=== PATIENT | male | born 1945 | race Caucasian/White ===

== ENCOUNTER 2017-01-16 17:08 | Inpatient (IN) | payer OTHER, MEDICARE ==
[~2017-01-16] VITALS: Ht 182.9 cm; Wt 78.3 kg
[2017-01-16] MEDS ORDERED: SODIUM CHLORIDE 0.9% 1000ML 2,000 ML IV STA (17:30)
[2017-01-16 17:39] LABS: BASO % 0.1 %; BASO ABS # 0.01 K/uL (0-0.2); COMPLETE YES; HEMATOCRIT 29.9 % (42-52); IG% 1.5 %; LYMPH % 4.3 %; LYMPH ABS # 0.58 K/uL (1.2-3.4); MEAN CELL VOLUME 81.5 fL (80-100); MEAN CORPUSCULAR HEMOGLOBIN 27.5 pg (25-34); MEAN CORPUSCULAR HGB CONC 33.8 g/dl (32-36); MEAN PLATELET VOLUME 8.8 fL (7.4-10.4); MONO % 5.4 %; NEUT % 88.7 %; PLATELET COUNT 453 K/uL (130-400); RED BLOOD COUNT 3.67 M/uL (4.7-6.1); WHITE BLOOD COUNT 13.49 K/uL (4.8-10.8)
[2017-01-16] MEDS ORDERED: LEVAQUIN 750MG / 150ML D5W IV STA (17:45)
[2017-01-16] MEDS ORDERED: PIPERACILLIN/TAZOBACTAM 4.5 GM/100ML D5W IV STA (17:45)
[2017-01-16] MEDS ORDERED: ACETAMINOPHEN 500 MG TAB PO STA (17:45)
[2017-01-16 17:52] LABS: PROTHROMBIN TIME (PATIENT) 66.2 SECONDS (9.0-12.0)
[2017-01-16 17:57] LABS: INR 5.8 (0.9-1.1)
[2017-01-16 17:59] LABS: ALT/SGPT 19 U/L (12-78); AST/SGOT 15 U/L (15-37); BLOOD UREA NITROGEN 19 mg/dl (7-18); BUN/CREATININE RATIO 14.3 (10-20); CARBON DIOXIDE 27 mmol/L (21-32); CHLORIDE 96 mmol/L (98-107); CREATININE 1.33 mg/dl (0.60-1.40); GLUCOSE 210 mg/dl (70-99); MAGNESIUM 1.8 mg/dl (1.8-2.4); POTASSIUM 3.8 mmol/L (3.5-5.1); SODIUM 132 mmol/L (136-145)
[2017-01-16 18:02] LABS: ALKALINE PHOSPHATASE 90 U/L (45-117)
--- NOTE | 2017-01-16 19:08 | DIAGNOSTIC IMAGING REPORT ---
SINGLE VIEW CHEST CLINICAL HISTORY: Fever. FINDINGS: An AP, portable, upright chest radiograph is obtained. No prior studies are available for comparison at the time of dictation. The examination is degraded by portable technique and apical lordotic positioning. The heart is enlarged and there is atherosclerotic calcification of the thoracic aorta. There is pulmonary vascular congestion. Airspace opacities are suggested at both lung bases. No large pleural effusion or pneumothorax is seen. The skeletal structures are osteopenic. The bony thorax is grossly intact. IMPRESSION: 1. Cardiomegaly with mild pulmonary vascular congestion. 2. Patchy airspace opacities are present at both lung bases. Correlate clinically for evidence of an infectious/inflammatory pneumonitis. Radiographic follow-up to resolution is recommended. Electronically signed by: Conor Cannon M.D. 01/16/2017 7:07 PM Dictated Date/Time: 01/16/2017 7:06 PM
--- NOTE | 2017-01-16 19:33 | DIAGNOSTIC IMAGING REPORT ---
LEFT SHOULDER 3 VIEWS CLINICAL HISTORY: Left shoulder pain. FINDINGS: 3 views of the left shoulder are obtained. No prior studies are available for comparison at the time of dictation. The skeletal structures are osteopenic. No fracture or dislocation is seen. Productive degenerative change is noted at the acromioclavicular joint. Arthritic change is also seen in the greater tuberosity of the humeral head. The overlying soft tissues are within normal limits. The imaged left lung parenchyma appears clear. There is atherosclerotic calcification of the thoracic aorta. IMPRESSION: Osteopenia and arthritic change as above. No left shoulder fracture or dislocation is identified. Electronically signed by: Conor Cannon M.D. 01/16/2017 7:32 PM Dictated Date/Time: 01/16/2017 7:31 PM
[2017-01-16] MEDS ORDERED: FERR325T5 PO (20:17)
[2017-01-16] MEDS ORDERED: OMEG10007 PO (20:17)
[2017-01-16] MEDS ORDERED: PRED20TA PO (20:21)
[2017-01-16] MEDS ORDERED: WARF2TAB PO (20:21)
[2017-01-16] MEDS ORDERED: GLIP10TA9 PO (20:21)
[2017-01-16] MEDS ORDERED: PANT40TA PO (20:21)
[2017-01-16] MEDS ORDERED: LIRA18IN SC (20:21)
[2017-01-16] MEDS ORDERED: AMIO200T4 PO (20:21)
[2017-01-16] MEDS ORDERED: FENO1TAB24 PO (20:21)
[2017-01-16] MEDS ORDERED: INSDGI SC (20:21)
[2017-01-16] MEDS ORDERED: CHOL1000 PO (20:22)
[2017-01-16] MEDS ORDERED: LISI-729 PO (20:22)
--- NOTE | 2017-01-16 20:43 | DIAGNOSTIC IMAGING REPORT ---
CT SCAN OF THE BRAIN WITHOUT IV CONTRAST CLINICAL HISTORY: Headache and dizziness. COMPARISON STUDY: No priors. TECHNIQUE: Unenhanced axial CT scan of the brain is performed from the vertex to the skull base. CT DOSE: 537.48 mGy.cm FINDINGS: Brain parenchyma: There are age-related involutional changes noting mild subcortical and periventricular microangiopathic change. There is no hemorrhage, mass effect, or evidence of acute territorial ischemia by CT criteria. Puga-white matter is preserved. No extra-axial fluid collection is seen. Ventricles, sulci, cisterns: Prominent secondary to involutional change. Intracranial vasculature: There is atherosclerotic calcification of the cavernous carotid and vertebral arteries. Calvarium: Unremarkable. Sinuses and mastoids: There is a large air-fluid level in the right maxillary antrum. Mucosal thickening is seen within the right frontal sinus and the right ethmoid sinuses. Trace mucosal thickening is seen in the sphenoid sinuses. There are small mastoid effusions. Orbits: The bony orbits are grossly intact. IMPRESSION: 1. There is no hemorrhage, mass effect, or evidence of acute territorial ischemia by CT criteria. 2. Right-sided paranasal sinus disease as above. Correlate clinically for evidence of acute sinusitis. Electronically signed by: Conor Cannon M.D. 01/16/2017 8:42 PM Dictated Date/Time: 01/16/2017 8:40 PM
[2017-01-16 20:54] LABS: ARTERIAL BLD GAS O2 SATURATION 95.4 % (90-95); ARTERIAL BLOOD GAS BASE EXCESS 0.4 mEq/L (-9-1.8); ARTERIAL BLOOD GAS HCO3 24 mmol/L (19-24); ARTERIAL BLOOD GAS PO2 81 mm/Hg (80-95); ARTERIAL BLOOD GAS pH 7.47 (7.35-7.45)
[2017-01-16 20:55] LABS: ALLEN TEST POS (POS); O2 ADMINISTRATION 3L O2
[2017-01-16 20:56] LABS: THYROID STIMULATING HORMONE 2.44 uIu/ml (0.300-4.500)
[2017-01-16] MEDS ORDERED: PHYTONADIONE 5 MG TAB PO STA ×2 (21:13→21:26)
[2017-01-16] MEDS ORDERED: POTASSIUM CHLORIDE 20 MEQ TABCR PO STA (21:20)
[2017-01-16] MEDS ORDERED: INSULIN GLARGINE SOLOSTAR 100 UNITS/ML 3 ML PEN SC ONE (21:32)
[2017-01-16] MEDS ORDERED: LEVALBUTEROL/IPRATROPIUM NEB INH STA (21:32)
[2017-01-16] MEDS ORDERED: INSULIN ASPART 100 UNITS/ML 3 ML PEN SC ONE (21:32)
[2017-01-16] MEDS ORDERED: LEVALBUTEROL/IPRATROPIUM NEB INH PRN (21:45)
[2017-01-16] MEDS ORDERED: GLUCOSE 40% GEL 15 GM TUBE PO PRN (21:45)
[2017-01-16] MEDS ORDERED: NITROGLYCERIN 0.4 MG SL PER TAB CHARGE SL PRN (21:45)
[2017-01-16] MEDS ORDERED: DEXTROSE 50% 50 ML SYR IV PRN (21:45)
[2017-01-16] MEDS ORDERED: GLUCOSE 10 TABS/TUBE PO PRN (21:45)
[2017-01-16] MEDS ORDERED: GLUCAGON FOR INJ 1 MG VIAL SQ PRN (21:45)
[2017-01-16 21:47] VITALS: BP 110/69; PULSE 90; TEMP 36.7; BMI 23.0
[2017-01-16] MEDS ORDERED: MAGNESIUM SULFATE 1GM / D5W 1 GM in PREMIXED IN D5W 100 ML IV ONE (22:00)
[2017-01-16] MEDS: LEVALBUTEROL 1.25MG/0.5ML NEB INH SCH (22:00)
[2017-01-16] MEDS ORDERED: FUROSEMIDE INJ 20 MG in SYRINGE 0 ML IV ONE (22:00)
[2017-01-16] MEDS ORDERED: DOXYCYCLINE IV 100 MG in DEXTROSE 5% 100ML 100 ML IV ONE (22:00)
[2017-01-16] MEDS ORDERED: FUROSEMIDE INJ 40 MG in SYRINGE 0 ML IV ONE (22:00)
[2017-01-16 22:55] LABS: URINE APPEARANCE CLEAR (CLEAR); URINE BILIRUBIN NEG (NEG); URINE COLOR YELLOW; URINE EPITHELIAL CELL AUTO 20-30 /lpf (0-5); URINE NITRITE NEG (NEG); URINE PH 5.5 (4.5-7.5); URINE SPECIFIC GRAVITY 1.025 (1.000-1.030); UROBILINOGEN NEG (NEG); ZZURINE CULT IF INDIC CATH YES
[2017-01-16 22:57] LABS: MANUAL MICROSCOPIC REQUIRED? NO; REVIEW REQ? YES
--- NOTE | 2017-01-16 23:10 | EMERGENCY ROOM VISIT NOTE ---
History Report prepared by Jeremy: Lauryn Gifford Under the Supervision of: Dr. Richie Zamorano D.O. First contact with patient: 17:17 Chief Complaint: ILLNESS Stated Complaint: WEAKNESS, DIZZINESS History of Present Illness The patient is a 71 year old male who presents to the Emergency Room with complaints of persistent weakness starting earlier today. The patient woke up feeling weak. He feels dizzy with standing up. He has had a productive cough. He has been coughing up clear sputum over the past month since getting out of the hospital. He notes that he fell 3 days ago. He was rushing to the bathroom when he lost his balance and fell. He did not think that he injured anything. He states that he has been having left shoulder pain since last week. The pain is an 8/10 with movement. At rest, he does not have any pain. He feels that he might have a cold. He has a headache in the left side. He has a history of atrial fibrillation and is on Coumadin. He has been taking his heart rate medication. He is normally not on oxygen. He denies any abdominal pain, nausea, vomiting, diarrhea, dysuria, back pain, confusion, or fever. He lives with his grandson who recently had a cold. Source of History: patient, family Onset: earlier today Position: other (global) Quality: other (weakness) Timing: other (persistent) Associated Symptoms: + headache, + cough, No fevers, No nausea, No vomiting , No abdominal pain, No back pain, No diarrhea, No urinary symptoms Note: Pt reports left shoulder pain, dizziness with standing up. Review of Systems See HPI for pertinent positives & negatives. A total of 10 systems reviewed and were otherwise negative. Past Medical & Surgical Medical Problems: (1) Atrial fibrillation (2) Respiratory failure, acute Family History No pertinent family history stated. Social History Housing Status: lives with family Current/Historical Medications Scheduled Amiodarone Hcl (Cordarone), 200 MG PO BID Cholecalciferol (Vitamin D3), 2 TAB PO DAILY Fenofibrate (Fenofibrate), 1 TAB PO DAILY Ferrous Sulfate (Ferrous Sulfate), 1 TAB PO BID Fish Oil (Galvin-3), 1 CAP PO BID Glipizide (Glucotrol), 2 TAB PO BID Insulin Glargine (Lantus), 10 UNITS SC QPM Liraglutide (Victoza), 0.3 ML SC DAILY Lisinopril (Zestril), 5 MG PO DAILY Pantoprazole (Protonix), 40 MG PO DAILY Prednisone (Prednisone), 1 TAB PO DAILY Warfarin Sodium (Coumadin), 2 TAB PO DAILY@1800 Allergies Coded Allergies: No Known Allergies (Unverified , 01/16/17) Physical Exam Vital Signs Date Time Temp Pulse Resp B/P (MAP) Pulse Ox O2 Delivery O2 Flow Rate FiO2 01/16/17 19:19 37.3 01/16/17 18:47 106 20 121/62 96 4.0 01/16/17 17:41 39.3 122 107/77 94 Nasal Cannula 4.0 01/16/17 17:19 37.1 122 22 96/57 84 Room Air 01/16/17 17:19 131 01/16/17 17:14 94 Nasal Cannula 4.0 Physical Exam GENERAL: Sitting up in bed, ill appearing, in minimal distress, dry nonproductive cough. EYE EXAM: normal conjunctiva. PERRL and EOM's intact. OROPHARYNX: no exudate, no erythema, lips, buccal mucosa, and tongue normal and mucous membranes are moist NECK: supple, no nuchal rigidity, no adenopathy, non-tender LUNGS: Clear to auscultation. Normal chest wall mechanics HEART: tachycardic and irregularly irregular. no murmurs, S1 normal and S2 normal ABDOMEN: abdomen soft, non-tender, normo-active bowel sounds, no masses, no rebound or guarding. BACK: Back is symmetrical on inspection and there is no deformity, no midline tenderness, no CVA tenderness. SKIN: no rashes and no bruising UPPER EXTREMITIES: Left upper extremity with tenderness to palpation of the humoral head. LOWER EXTREMITIES: No pitting edema. NEURO EXAM: Normal sensorium, cranial nerves II-XII grossly intact, normal speech, no gross weakness of arms, no gross weakness of legs. Medical Decision & Procedures ER Provider Diagnostic Interpretation: Radiology results as stated below per my review and the radiologist's interpretation: SINGLE VIEW CHEST CLINICAL HISTORY: Fever. FINDINGS: An AP, portable, upright chest radiograph is obtained. No prior studies are available for comparison at the time of dictation. The examination is degraded by portable technique and apical lordotic positioning. The heart is enlarged and there is atherosclerotic calcification of the thoracic aorta. There is pulmonary vascular congestion. Airspace opacities are suggested at both lung bases. No large pleural effusion or pneumothorax is seen. The skeletal structures are osteopenic. The bony thorax is grossly intact. IMPRESSION: 1. Cardiomegaly with mild pulmonary vascular congestion. 2. Patchy airspace opacities are present at both lung bases. Correlate clinically for evidence of an infectious/inflammatory pneumonitis. Radiographic follow-up to resolution is recommended. Electronically signed by: Conor Cannon M.D. 01/16/2017 7:07 PM Dictated Date/Time: 01/16/2017 7:06 PM LEFT SHOULDER 3 VIEWS CLINICAL HISTORY: Left shoulder pain. FINDINGS: 3 views of the left shoulder are obtained. No prior studies are available for comparison at the time of dictation. The skeletal structures are osteopenic. No fracture or dislocation is seen. Productive degenerative change is noted at the acromioclavicular joint. Arthritic change is also seen in the greater tuberosity of the humeral head. The overlying soft tissues are within normal limits. The imaged left lung parenchyma appears clear. There is atherosclerotic calcification of the thoracic aorta. IMPRESSION: Osteopenia and arthritic change as above. No left shoulder fracture or dislocation is identified. Electronically signed by: Conor Cannon M.D. 01/16/2017 7:32 PM Dictated Date/Time: 01/16/2017 7:31 PM Laboratory Results 01/16/17 17:25 Red Blood Count 3.67, Mean Corpuscular Volume 81.5, Mean Corpuscular Hemoglobin 27.5, Mean Corpuscular Hemoglobin Concent 33.8, Mean Platelet Volume 8.8, Neutrophils (%) (Auto) 88.7, Lymphocytes (%) (Auto) 4.3, Monocytes (%) (Auto) 5.4, Eosinophils (%) (Auto) 0.0, Basophils (%) (Auto) 0.1, Neutrophils # (Auto) 11.97, Lymphocytes # (Auto) 0.58, Monocytes # (Auto) 0.73, Eosinophils # (Auto) 0.00, Basophils # (Auto) 0.01 01/16/17 17:25 Test 01/16/17 17:25 01/16/17 17:53 01/16/17 18:44 White Blood Count 13.49 K/uL (4.8-10.8) Red Blood Count 3.67 M/uL (4.7-6.1) Hemoglobin 10.1 g/dL (14.0-18.0) Hematocrit 29.9 % (42-52) Mean Corpuscular Volume 81.5 fL (80-100) Mean Corpuscular Hemoglobin 27.5 pg (25-34) Mean Corpuscular Hemoglobin Concent 33.8 g/dl (32-36) Platelet Count 453 K/uL (130-400) Mean Platelet Volume 8.8 fL (7.4-10.4) Neutrophils (%) (Auto) 88.7 % Lymphocytes (%) (Auto) 4.3 % Monocytes (%) (Auto) 5.4 % Eosinophils (%) (Auto) 0.0 % Basophils (%) (Auto) 0.1 % Neutrophils # (Auto) 11.97 K/uL (1.4-6.5) Lymphocytes # (Auto) 0.58 K/uL (1.2-3.4) Monocytes # (Auto) 0.73 K/uL (0.11-0.59) Eosinophils # (Auto) 0.00 K/uL (0-0.5) Basophils # (Auto) 0.01 K/uL (0-0.2) RDW Standard Deviation 49.7 fL (36.4-46.3) RDW Coefficient of Variation 16.4 % (11.5-14.5) Immature Granulocyte % (Auto) 1.5 % Immature Granulocyte # (Auto) 0.20 K/uL (0.00-0.02) Prothrombin Time 66.2 SECONDS (9.0-12.0) Prothromb Time International Ratio 5.8 (0.9-1.1) Anion Gap 9.0 mmol/L (3-11) Est Creatinine Clear Calc Drug Dose 55.5 ml/min Estimated GFR () 61.9 Estimated GFR (Non- 53.4 BUN/Creatinine Ratio 14.3 (10-20) Calcium Level 9.0 mg/dl (8.5-10.1) Magnesium Level 1.8 mg/dl (1.8-2.4) Total Bilirubin 0.7 mg/dl (0.2-1) Direct Bilirubin 0.3 mg/dl (0-0.2) Aspartate Amino Transf (AST/SGOT) 15 U/L (15-37) Alanine Aminotransferase (ALT/SGPT) 19 U/L (12-78) Alkaline Phosphatase 90 U/L (45-117) Total Creatine Kinase 21 U/L (39-308) Creatine Kinase MB < 0.5 ng/ml (0.5-3.6) Creatine Kinase MB Ratio (0-3.0) Troponin I < 0.015 ng/ml (0-0.045) Pro-B-Type Natriuretic Peptide 1654 pg/ml (0-900) Total Protein 6.7 gm/dl (6.4-8.2) Albumin 2.1 gm/dl (3.4-5.0) Thyroid Stimulating Hormone (TSH) 2.440 uIu/ml (0.300-4.500) Influenza Type A Antigen Neg for Influ A (NEG) Influenza Type B Antigen Neg for Influ B (NEG) Bedside Lactic Acid Venous 1.09 mmol/L (0.90-1.70) Laboratory results per my review. Medications Administered Medications (Trade) Dose Ordered Sig/Lg Route Start Time Stop Time Status Last Admin Dose Admin Sodium Chloride 2,000 ml @ 999 mls/hr Q2H1M STAT IV 01/16/17 17:30 01/16/17 19:30 DC 01/16/17 17:41 999 MLS/HR Acetaminophen (Tylenol Tab) 1,000 mg NOW STAT PO 01/16/17 17:45 01/16/17 17:47 DC 01/16/17 17:56 1,000 MG Piperacillin Sod/ Tazobactam Sod (Zosyn Iv) 4.5 gm NOW STAT IV 01/16/17 17:45 01/16/17 17:47 DC 01/16/17 18:48 4.5 GM Levofloxacin (Levaquin / D5W) 750 mg NOW STAT IV 01/16/17 17:45 01/16/17 17:47 DC 01/16/17 18:50 750 MG ECG Indication: weakness Rate (beats per minute): 134 Rhythm: atrial fibrillation Findings: other (normal axis, RVR) ED Course ED COURSE: Vital signs were reviewed and showed fever, tachycardia. The patients medical record was reviewed The above diagnostic studies were performed and reviewed. ED treatments and interventions as stated above. 1722: The patient was evaluated in room C2B. A complete history and physical examination was performed. 1730: NSS 2000 ml @ 999 mls/hr IV. 174: I reevaluated the patient. His systolic pressure is up to 109. 174: Levofloxacin 750 mg IV, Zosyn Iv 4.5 gm IV, Acetaminophen 1000 mg PO. 182: I reevaluated the patient. His heart rate is down to 106. 1914: I reviewed the patient[facility] He will evaluate the patient for further management. 1916: Upon reevaluation, the patient is stable. I discussed my findings with the patient and he understands and agrees with the treatment plan. Based on the patients age, coexisting illnesses, exam and lab findings the decision to treat as an inpatient was made. The patient remained stable while under my care. The patient will be evaluated for further management. Medical Decision Differential diagnosis includes etiologies such as sepsis, UTI, pneumonia, metabolic, electrolyte abnormalities, cardiac sources, intracerebral event, toxicologic, neurologic, as well as others were entertained. Patient is a 71-year-old male who presents to ER for cough associated with fever. He is febrile and tachycardic. Vital show that he is in A. fib with RVR. Heart rates in the 120s. He was hypoxic in the 80s. He is placed on nasal cannula. Labs were obtained. 2 IVs were established. His a leukocytosis of 13.5 thousand. Chest x-ray supports mild edema associated with infiltrates. UA was negative. Flu was negative. Patient was covered with broad-spectrum antibiotics which include Levaquin and Zosyn. Patient was given 2 L normal saline. Patient and family were updated bedside. CT head was unremarkable. Patient was admitted to internal medicine with sepsis secondary to pneumonia in A. fib with RVR and his heart rate trended down to 100 following 2 L normal saline. Medication Reconcilliation Current Medication List: was personally reviewed by me Blood Pressure Screening Patient's blood pressure: Normal blood pressure Blood pressure disposition: Did not require urgent referral Consults Time Called: 1907 [facility]ing Phys[facility] Return[facility] Call: 1914 I reviewed the patient's case with him. He will evaluate the patient for further management. Impression Primary Impression: Sepsis Additional Impressions: Pneumonia Atrial fibrillation with RVR Critical Care I have personally spent 75 minutes of critical care time in the direct management of this patient. This includes bedside care, interpretation of diagnostic studies, and testing, discussion with consultants, patient, and family members, and other required patient management activities. This 75 minutes is in excess of all separately billable procedures. Scribe Attestation The scribe's documentation has been prepared under my direction and personally reviewed by me in its entirety. I confirm that the note above accurately reflects all work, treatment, procedures, and medical decision making performed by me. Departure Information Dispostion Being Evaluated By Hospitalist Terry Goyal D.OJuan Antonio (PCP) Patient Instructions [facility] Problem Qualifiers Primary Impression: Sepsis Sepsis type: sepsis due to unspecified organism Qualified Codes: A41.9 - Sepsis, unspecified organism Additional Impressions: Pneumonia Pneumonia type: due to unspecified organism Laterality: unspecified laterality Lung location: unspecified part of lung Qualified Codes: J18.9 - Pneumonia, unspecified organism
[2017-01-16 23:31] VITALS: BP 108/64; PULSE 101; TEMP 36.8; O2SAT 96
[2017-01-16] MEDS: PIPERACILL/TAZOBAC IV 3.375 GM in DEXTROSE 5% 100ML IV SCH (23:40)
[2017-01-17] VITALS (12 sets, daily range): BP systolic 102–122; BP diastolic 59–76; PULSE 89–122; TEMP 36.6–38.9; O2SAT 90–95
--- NOTE | 2017-01-17 01:03 | HISTORY & PHYSICAL EXAMINATION ---
DATE OF ADMISSION: 01/16/2017 PRIMARY CARE PHYSICIAN: Dr. Pérez CHIEF COMPLAINT: Cough, shortness of breath. HISTORY OF PRESENT ILLNESS: History obtained from patient and records. 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 Patient admitted at [facility] last September 2016 for diffuse alveolar hemorrhage attributed new vasculitis diagnosis of Johan granulomatosis. Patient subsequently readmitted (09/30/2016-10/21/2016) a few days after discharge for pulmonary embolism sp IVC filter placement eventually started on anticoagulation. Patient noted to have AFib with RVR during admission. MRSA bacteremia (refractory to Vancomycin rx as per records) during confinement attributed to a left hand abscess sp drainage. SACHA from confinement in October 2016, EF 60-64 %, moderate MR, moderate TR, no LV segmental wall abnormalities, no vegetation. Px completed IV antibiotic course (initial Vancomycin later switched to Daptomycin/Ceftaroline course). Patient subsequently discharged to [facility] later [facility] for rehabilitation After his protracted illness. Discharged home last month. Patient saw [facility] for vasculitis management November 2016. Outpatient Rituxan infusions (overlapped with steroid taper) a few weeks later upon completion of antibiotic Rx course for MRSA bacteremia. In the last few days, the patient also had cough symptoms, initially productive of clear later yellow to green sputum as per . Admits to some coughing, especially with cold water intake. Swallow eval during confinement at [facility], recommendations and findings not known to patient and family. Increasing shortness of breath on exertion. No chest pain. Denies weight gain or leg swelling. Some dizziness. Patient also noted achy left shoulder pain symptoms. As per patient, blood sugars are on the higher side this week. [facility] Chest x-ray clear as per . Worsening symptoms prompted ER consultation. Patient noted to be in rapid AFib upon arrival at the ER. Patient given IVF, Zosyn and Levaquin for sepsis. Heart rate currently controlled. MEDICAL HISTORY: As above. AAA 2.9 cm on 09/2016 ultrasound. SURGERIES: He has had left hand abscess drainage, vascular procedures, urologic procedures. HOME MEDICATIONS: Include Lantus, Victoza, Zestril, Protonix, prednisone taper, Coumadin. Periodic Rituxan injection. amiodarone, vitamin D3, fenofibrate, ferrous sulfate, omega-3, Glucotrol. ALLERGIES: No known drug allergies. FAMILY HISTORY: Diabetes. PERSONAL AND SOCIAL HISTORY: Past tobacco abuse. No chronic intake of alcoholic beverages. 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 REVIEW OF SYSTEMS: As per HPI. All other ROS negative. PHYSICAL EXAMINATION: VITAL SIGNS: Blood pressure noted to be 96/59 later 107/60, pulse rate 122 alter 90, RR 20, temperature 39.3, sats 84 on room air later 94 on 2 liters. GENERAL: Noted to wane, no respiratory distress. Dysphonic. SKIN: Pallor, warm. HEENT: Alopecia, pale palpebral conjunctivae. No ptosis. Dry buccal mucosa. NECK: No JVD. Supple. No tenderness. CHEST: Decreased effort. No tenderness. HEART: Irregular, systolic murmur. ABDOMEN: Soft, nontender. EXTREMITIES: No edema, no LE tenderness, no gross deformities. NEUROLOGIC: Coherent. No gross focality. LABORATORIES: Hemoglobin was noted to be 10.1, white cell count 13.4, platelets 453. Sodium 132, potassium 3.8, chloride 96, CO2 27, creatinine 1.3, glucose 210. INR was noted to be 5.8. BNP was 1654. ABG pH 7.47, pCO2 30, pO2 81, 95% on 3 liters. Hemoglobin A1c from October 2016 was 7.1. EKG as per my interpretation, AFib. CT head, no acute pathology. Chest x-ray showed cardiomegaly, mild pulmonary vascular congestion, patchy airspace infiltrates ( infectious versus inflammatory pneumonitis). L Shoulder x-ray, arthritis, osteopenia. ASSESSMENT AND PLAN: 1. Hypoxemic respiratory failure multifactorial : HCAP (hx vasculitis on prednisone taper/ outpx Rituxan infusion tx) possible aspiration pneumonia mild pulmonary congestion 2 to rapid atrial fibrillation. 2. Severe sepsis SIRS plus hypoxemia secondary to above. Immunocompromised patient. 3. AFib, currently rate controlled after initial intervention at the ER INR supratherapeutic. 4. hx pulmonary embolism status post IVC filter placement on Coumadin INR supratherapeutic 5 Hypertension. Blood pressure on the lower side. 4. Past tobacco abuse. 6. DM2. Insulin-requiring, well controlled as of recent inpatient hemoglobin A1c from [facility] BSGs have been high at home the last week as per patient 7. Chronic anemia. Hemoglobin at baseline. 8. hx PVD sp surgery 9. Hx MRSA PCU supplemental O2. Cultures. Zosyn, Doxycycline swallow eval, aspiration precautions for now Lasix one dose for mild pulmonary congestion nebs RTC, prn Continue amiodarone for AF rate control. Vitamin K 1 dose for supratherapeutic INR with anticipated progression after antibiotic administration Basal insulin, ISS BG goal 140-180. Patient due for hemoglobin A1c recheck. DVT prophylaxis, Coumadin, INR 2-3. Full code. MTDD
[2017-01-17] MEDS: IPRATROPIUM BROMIDE NEB SOLN 0.02% 2.5 ML VIAL INH SCH ×4 (01:53→19:25)
[2017-01-17] MEDS ORDERED: LEVALBUTEROL/IPRATROPIUM NEB INH SCH (03:00)
[2017-01-17] MEDS ORDERED: AMIODARONE 200 MG TAB PO ONE (03:30)
[2017-01-17] MEDS ORDERED: POTASSIUM CHLORIDE 10 MEQ TABCR PO STA (03:39)
[2017-01-17] MEDS ORDERED: LEVALBUTEROL/IPRATROPIUM NEB INH PRN (03:45)
[2017-01-17] MEDS: ACETAMINOPHEN 325 MG TAB PO PRN ×2 (03:49→15:54)
[2017-01-17] MEDS ORDERED: LEVALBUTEROL 1.25MG/0.5ML NEB INH PRN (04:00)
[2017-01-17] MEDS ORDERED: IPRATROPIUM BROMIDE NEB SOLN 0.02% 2.5 ML VIAL INH PRN (04:00)
[2017-01-17 06:55] LABS: BASO % 0.1 %; BASO ABS # 0.01 K/uL (0-0.2); COMPLETE YES; EOS % 0.1 %; HEMATOCRIT 28.9 % (42-52); IG% 2.9 %; LYMPH % 4.7 %; LYMPH ABS # 0.57 K/uL (1.2-3.4); MEAN CELL VOLUME 81.9 fL (80-100); MEAN CORPUSCULAR HEMOGLOBIN 28.6 pg (25-34); MEAN CORPUSCULAR HGB CONC 34.9 g/dl (32-36); MEAN PLATELET VOLUME 8.7 fL (7.4-10.4); MONO % 5.7 %; NEUT % 86.5 %; PLATELET COUNT 367 K/uL (130-400); RED BLOOD COUNT 3.53 M/uL (4.7-6.1)
[2017-01-17 07:09] LABS: PROTHROMBIN TIME (PATIENT) 59.5 SECONDS (9.0-12.0)
[2017-01-17] MEDS: LEVALBUTEROL 1.25MG/0.5ML NEB INH SCH ×3 (07:16→19:25)
[2017-01-17 07:17] LABS: INR 5.2 (0.9-1.1)
[2017-01-17 07:20] LABS: BUN/CREATININE RATIO 14.3 (10-20); CALCIUM 8.8 mg/dl (8.5-10.1); CREATININE 1.42 mg/dl (0.60-1.40); MAGNESIUM 1.8 mg/dl (1.8-2.4); POTASSIUM 3.8 mmol/L (3.5-5.1)
[2017-01-17] MEDS ORDERED: MAGNESIUM SULFATE 1GM / D5W 1 GM in PREMIXED IN D5W 100 ML IV ONE (08:00)
[2017-01-17] MEDS: PANTOprazole SOD 40 MG TAB PO SCH (08:00)
[2017-01-17] MEDS: INSULIN ASPART 100 UNITS/ML 3 ML PEN SC SCH ×4 (08:31→21:05)
[2017-01-17] MEDS: FERROUS SULFATE 325 MG TAB PO SCH ×2 (08:43→18:05)
[2017-01-17 08:54] LABS: ESTIMATED AVERAGE GLUCOSE 203 mg/dl; HA1C FLAG Normal (Normal)
[2017-01-17] MEDS: PIPERACILL/TAZOBAC IV 3.375 GM in DEXTROSE 5% 100ML IV SCH ×3 (08:57→23:56)
[2017-01-17] MEDS ORDERED: PIPERACILL/TAZOBAC CONSULT ACTIVE PRN (09:00)
[2017-01-17] MEDS ORDERED: INSULIN GLARGINE SOLOSTAR 100 UNITS/ML 3 ML PEN SC SCH ×3 (09:00)
[2017-01-17] MEDS ORDERED: DOXYCYCLINE IV 100 MG in DEXTROSE 5% 100ML 100 ML IV SCH (09:00)
[2017-01-17] MEDS ORDERED: LISINOPRIL 5 MG TAB PO SCH (09:00)
[2017-01-17] MEDS ORDERED: AMIODARONE 200 MG TAB PO SCH (09:00)
[2017-01-17] MEDS ORDERED: VANCOMYCIN CONSULT ACTIVE PRN (10:30)
[2017-01-17] MEDS ORDERED: VANCOMYCIN INJ 2,000 MG in SODIUM CHLORIDE 0.9% 500ML 500 ML IV ONE (10:30)
--- NOTE | 2017-01-17 11:23 | Pharmacy Progress Note ---
Pharmacy Abx Initial Consult Date of Service Jan 17, 2017. Pharmacy Dosing Scope Date of Consult: 01/17/17 Consultation requested by: Dr. Roa Pharmacy is consulted to initiate Vancomycin & Zosyn IV dosing therapy, order appropriate labs and adjust drug dose/frequency. Subjective The patient is a 71 year old male admitted on Jan 16, 2017 at 20:24. Objective Height (Feet): 6 Height (Inches): 0.00 Weight (Kilograms): 79.000 Vital Signs (Past 12Hrs) Vital Signs Past 12 Hours Date Time Temp Pulse Resp B/P (MAP) Pulse Ox O2 Delivery O2 Flow Rate FiO2 01/17/17 08:00 Nasal Cannula 3.0 01/17/17 07:18 36.8 98 18 102/59 (73) 94 Room Air 01/17/17 07:16 108 18 95 Nasal Cannula 3.0 01/17/17 05:20 37.8 01/17/17 04:49 38.9 122 18 117/72 (87) 94 Nasal Cannula 3.0 01/17/17 04:00 Nasal Cannula 3.0 01/17/17 00:00 Nasal Cannula 3.0 01/16/17 23:31 36.8 101 18 108/64 (79) 96 Nasal Cannula 3.0 Lab Results (24Hrs) Item Value Date Time Creatinine 1.42 mg/dl H 01/17/17 06 Est Creatinine Clear Calc Drug Dose 52.4 ml/min 01/17/17 0629 Estimated GFR () 57.2 01/17/17 06 Estimated GFR (Non- 49.3 01/17/17 0629 Laboratory Tests (24 Hours) Test 01/16/17 17:25 01/17/17 06:29 Total Creatine Kinase 21 U/L (39-308) L White Blood Count 12.10 K/uL (4.8-10.8) H Red Blood Count 3.53 M/uL (4.7-6.1) L Hemoglobin 10.1 g/dL (14.0-18.0) L Hematocrit 28.9 % (42-52) L Mean Corpuscular Volume 81.9 fL (80-100) Mean Corpuscular Hemoglobin 28.6 pg (25-34) Mean Corpuscular Hemoglobin Concent 34.9 g/dl (32-36) Platelet Count 367 K/uL (130-400) Mean Platelet Volume 8.7 fL (7.4-10.4) Neutrophils (%) (Auto) 86.5 % Lymphocytes (%) (Auto) 4.7 % Monocytes (%) (Auto) 5.7 % Eosinophils (%) (Auto) 0.1 % Basophils (%) (Auto) 0.1 % Neutrophils # (Auto) 10.47 K/uL (1.4-6.5) H Lymphocytes # (Auto) 0.57 K/uL (1.2-3.4) L Monocytes # (Auto) 0.69 K/uL (0.11-0.59) H Eosinophils # (Auto) 0.01 K/uL (0-0.5) Basophils # (Auto) 0.01 K/uL (0-0.2) Micro Results Date/Time Source Procedure Growth Status 01/16/17 18:40 Blood Blood Culture Pending Received 01/16/17 17:25 Blood Blood Culture - Preliminary Gram Positive Cocci Resulted 01/17/17 08:45 Sputum Expectorated Sputum Gram Stain Pending Received 01/17/17 08:45 Sputum Expectorated Sputum Sputum Culture Pending Received 01/16/17 22:17 Urine,Catheterized Urine Culture Pending Received Risk Factors for Resistance * Hospitalization for 48 hours or more within the past 90 days [facility] 09/30 to 10/21/16 MRSA bacteremia * Immunocompromised (prednisone and rituxan) * History of infection with a multidrug-resistant organism: MRSA bacteremia September 2016 see above * Antimicrobial use within the last 90 days Assessment & Plan Assessment 71 year old male admitted via the ED for hypoxemic respiratory failure multifactorial : HCAP (hx vasculitis on prednisone taper/ outpx Rituxan infusion tx) possible aspiration pneumonia and mild pulmonary congestion 2 to rapid atrial fibrillation. Patient currently receiving 3L oxygen via nasal canula. Patient does not have an oxygen requirement at home. Plan Vancomycin for treatment of Bacteremia with history of MRSA bacteremia in September of 2016 Vancomycin IV * Loading dose: 2000 mg (25.3 mg/kg) * Maintenance dose: 1250 mg IV (15.8 mg/kg) every 18 hours * Goal trough level for Bacteremia : 15 to 20 mcg/mL * Trough/Random level ordered for 01/20/17 @1530 * A less than traditional dose and/or extended dosing interval has/have been selected due to likelihood of drug accumulation in patient with changing renal function. Piperacillin/tazobactam * 4.5 g bolus administered over 30 minutes, then 3.375 g IV extended infusion every 8 hours for CrCl greater than 20 mL/min * Aggressive dosing selected due to critically ill status Pharmacy will continue to follow and will adjust dose/frequency as necessary. Thank you.
--- NOTE | 2017-01-17 16:38 | Progress Note ---
Medicine Progress Note Date & Time of Visit: Jan 17, 2017 at 1000. 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 Lives in [place] and states that "I was told I had pneumonia." Reports malaise with fevers, chills and cough since Tuesday (3 days ago). Today is somewhat improved-states he didn't get much sleep last night so he speaks to me supine and mostly with his eyes closed, but he is alert and appropriate. He is noticeable deconditioned and has trouble rolling over in the bed. Needs strict aspiration precautions which were explained to him. Denies SOB but is still requiring a small amount of oxygen. -has difficulty moving much at all-can move arms with passive help though -flat affect -doesn't give much history -reports no SOB, CP, some fevers and chills, tolerating PO, no nausea, vomiting or diarrhea reported. Objective Last 8 Hrs Date Time Temp Pulse Resp B/P (MAP) Pulse Ox O2 Delivery O2 Flow Rate FiO2 01/17/17 14:28 89 18 94 Nasal Cannula 3.0 01/17/17 14:20 92 01/17/17 12:00 Nasal Cannula 3.0 01/17/17 11:33 37.0 116 18 119/76 (90) 95 Nasal Cannula 2.0 01/17/17 08:00 Nasal Cannula 3.0 Physical Exam: GEN: WNWD, in no acute distress, alert and appropriate, supine, deconditioned. HEENT: NC/AT, normal sclerae, MMM CARDIO: reg rate, S1/2 heard without m/g/r LUNGS: CTA bilaterally, no crackles, rales or wheezes, good diaphragmatic excursion ABD: soft, non-tender, non-distended, no rebound or guarding, +BS EXTREMITY: RP and DP palpable 2+ bilat, no LE swelling or edema, extremities are warm and well-perfused N/M: very deconditioned. SKIN: warm and dry Laboratory Results: 01/17/17 06:29 Red Blood Count 3.53, Mean Corpuscular Volume 81.9, Mean Corpuscular Hemoglobin 28.6, Mean Corpuscular Hemoglobin Concent 34.9, Mean Platelet Volume 8.7, Neutrophils (%) (Auto) 86.5, Lymphocytes (%) (Auto) 4.7, Monocytes (%) (Auto) 5.7, Eosinophils (%) (Auto) 0.1, Basophils (%) (Auto) 0.1, Neutrophils # (Auto) 10.47, Lymphocytes # (Auto) 0.57, Monocytes # (Auto) 0.69, Eosinophils # (Auto) 0.01, Basophils # (Auto) 0.01 01/17/17 06:29 Test 01/16/17 17:25 01/16/17 17:53 01/16/17 18:44 01/16/17 20:44 Estimated Average Glucose 203 mg/dl Hemoglobin A1c 8.7 % (4.5-5.6) Total Bilirubin 0.7 mg/dl (0.2-1) Direct Bilirubin 0.3 mg/dl (0-0.2) Aspartate Amino Transf (AST/SGOT) 15 U/L (15-37) Alanine Aminotransferase (ALT/SGPT) 19 U/L (12-78) Alkaline Phosphatase 90 U/L (45-117) Total Creatine Kinase 21 U/L (39-308) Creatine Kinase MB < 0.5 ng/ml (0.5-3.6) Creatine Kinase MB Ratio (0-3.0) Troponin I < 0.015 ng/ml (0-0.045) Pro-B-Type Natriuretic Peptide 1654 pg/ml (0-900) Total Protein 6.7 gm/dl (6.4-8.2) Albumin 2.1 gm/dl (3.4-5.0) Thyroid Stimulating Hormone (TSH) 2.440 uIu/ml (0.300-4.500) Influenza Type A Antigen Neg for Influ A (NEG) Influenza Type B Antigen Neg for Influ B (NEG) Bedside Lactic Acid Venous 1.09 mmol/L (0.90-1.70) Arterial Blood pH 7.47 (7.35-7.45) Arterial Blood Partial Pressure CO2 33 mmHg (35-46) Arterial Blood Partial Pressure O2 81 mm/Hg (80-95) Arterial Blood HCO3 24 mmol/L (19-24) Arterial Blood Oxygen Saturation 95.4 % (90-95) Arterial Blood Base Excess 0.4 mEq/L (-9-1.8) Arterial Blood Gas Delivery 3L O2 Mendoza Test POS (POS) Test 11/5/17 22:17 01/17/17 06:29 01/17/17 11:31 Urine Color YELLOW Urine Appearance CLEAR (CLEAR) Urine pH 5.5 (4.5-7.5) Urine Specific Edward 1.025 (1.000-1.030) Urine Protein 2+ (NEG) Urine Glucose (UA) TRACE (NEG) Urine Ketones NEG (NEG) Urine Occult Blood 2+ (NEG) Urine Nitrite NEG (NEG) Urine Bilirubin NEG (NEG) Urine Urobilinogen NEG (NEG) Urine Leukocyte Esterase NEG (NEG) Urine WBC (Auto) 1-5 /hpf (0-5) Urine RBC (Auto) 5-10 /hpf (0-4) Urine Hyaline Casts (Auto) 5-10 /lpf (0-5) Urine Epithelial Cells (Auto) 20-30 /lpf (0-5) Urine Bacteria (Auto) NEG (NEG) Urine Crystals AMORPHOUS SEDIMENT (NONE Urine Yeast (Auto) (NONE PRSENT) White Blood Count 12.10 K/uL (4.8-10.8) Red Blood Count 3.53 M/uL (4.7-6.1) Hemoglobin 10.1 g/dL (14.0-18.0) Hematocrit 28.9 % (42-52) Mean Corpuscular Volume 81.9 fL (80-100) Mean Corpuscular Hemoglobin 28.6 pg (25-34) Mean Corpuscular Hemoglobin Concent 34.9 g/dl (32-36) Platelet Count 367 K/uL (130-400) Mean Platelet Volume 8.7 fL (7.4-10.4) Neutrophils (%) (Auto) 86.5 % Lymphocytes (%) (Auto) 4.7 % Monocytes (%) (Auto) 5.7 % Eosinophils (%) (Auto) 0.1 % Basophils (%) (Auto) 0.1 % Neutrophils # (Auto) 10.47 K/uL (1.4-6.5) Lymphocytes # (Auto) 0.57 K/uL (1.2-3.4) Monocytes # (Auto) 0.69 K/uL (0.11-0.59) Eosinophils # (Auto) 0.01 K/uL (0-0.5) Basophils # (Auto) 0.01 K/uL (0-0.2) RDW Standard Deviation 50.1 fL (36.4-46.3) RDW Coefficient of Variation 16.6 % (11.5-14.5) Immature Granulocyte % (Auto) 2.9 % Immature Granulocyte # (Auto) 0.35 K/uL (0.00-0.02) Prothrombin Time 59.5 SECONDS (9.0-12.0) Prothromb Time International Ratio 5.2 (0.9-1.1) Anion Gap 7.0 mmol/L (3-11) Est Creatinine Clear Calc Drug Dose 52.4 ml/min Estimated GFR () 57.2 Estimated GFR (Non- 49.3 BUN/Creatinine Ratio 14.3 (10-20) Calcium Level 8.8 mg/dl (8.5-10.1) Magnesium Level 1.8 mg/dl (1.8-2.4) Bedside Glucose 223 mg/dl (70-99) Date/Time Source Procedure Growth Status 01/16/17 18:40 Blood Blood Culture - Preliminary Gram Positive Cocci Resulted 01/17/17 08:45 Sputum Expectorated Sputum Gram Stain - Final Resulted 01/17/17 08:45 Sputum Expectorated Sputum Sputum Culture Pending Resulted 01/16/17 22:17 Urine,Catheterized Urine Culture Pending Received Hemoglobin A1c Test 01/16/17 17:25 Range/Units Estimated Average Glucose 203 mg/dl Hemoglobin A1c 8.7 H 4.5-5.6 % Last 24 Hours Test 01/16/17 17:25 01/16/17 17:53 01/16/17 18:44 01/16/17 20:44 White Blood Count 13.49 K/uL Red Blood Count 3.67 M/uL Hemoglobin 10.1 g/dL Hematocrit 29.9 % Mean Corpuscular Volume 81.5 fL Mean Corpuscular Hemoglobin 27.5 pg Mean Corpuscular Hemoglobin Concent 33.8 g/dl Platelet Count 453 K/uL Mean Platelet Volume 8.8 fL Neutrophils (%) (Auto) 88.7 % Lymphocytes (%) (Auto) 4.3 % Monocytes (%) (Auto) 5.4 % Eosinophils (%) (Auto) 0.0 % Basophils (%) (Auto) 0.1 % Neutrophils # (Auto) 11.97 K/uL Lymphocytes # (Auto) 0.58 K/uL Monocytes # (Auto) 0.73 K/uL Eosinophils # (Auto) 0.00 K/uL Basophils # (Auto) 0.01 K/uL RDW Standard Deviation 49.7 fL RDW Coefficient of Variation 16.4 % Immature Granulocyte % (Auto) 1.5 % Immature Granulocyte # (Auto) 0.20 K/uL Prothrombin Time 66.2 SECONDS Prothromb Time International Ratio 5.8 Sodium Level 132 mmol/L Potassium Level 3.8 mmol/L Chloride Level 96 mmol/L Carbon Dioxide Level 27 mmol/L Anion Gap 9.0 mmol/L Blood Urea Nitrogen 19 mg/dl Creatinine 1.33 mg/dl Est Creatinine Clear Calc Drug Dose 55.5 ml/min Estimated GFR () 61.9 Estimated GFR (Non- 53.4 BUN/Creatinine Ratio 14.3 Random Glucose 210 mg/dl Estimated Average Glucose 203 mg/dl Hemoglobin A1c 8.7 % Calcium Level 9.0 mg/dl Magnesium Level 1.8 mg/dl Total Bilirubin 0.7 mg/dl Direct Bilirubin 0.3 mg/dl Aspartate Amino Transf (AST/SGOT) 15 U/L Alanine Aminotransferase (ALT/SGPT) 19 U/L Alkaline Phosphatase 90 U/L Total Creatine Kinase 21 U/L Creatine Kinase MB < 0.5 ng/ml Creatine Kinase MB Ratio Troponin I < 0.015 ng/ml Pro-B-Type Natriuretic Peptide 1654 pg/ml Total Protein 6.7 gm/dl Albumin 2.1 gm/dl Thyroid Stimulating Hormone (TSH) 2.440 uIu/ml Influenza Type A Antigen Neg for Influ A Influenza Type B Antigen Neg for Influ B Bedside Lactic Acid Venous 1.09 mmol/L Arterial Blood pH 7.47 Arterial Blood Partial Pressure CO2 33 mmHg Arterial Blood Partial Pressure O2 81 mm/Hg Arterial Blood HCO3 24 mmol/L Arterial Blood Oxygen Saturation 95.4 % Arterial Blood Base Excess 0.4 mEq/L Arterial Blood Gas Delivery 3L O2 Mendoza Test POS Test 01/16/17 22:17 01/16/17 22:30 01/17/17 06:29 01/17/17 07:43 Urine Color YELLOW Urine Appearance CLEAR Urine pH 5.5 Urine Specific Edward 1.025 Urine Protein 2+ Urine Glucose (UA) TRACE Urine Ketones NEG Urine Occult Blood 2+ Urine Nitrite NEG Urine Bilirubin NEG Urine Urobilinogen NEG Urine Leukocyte Esterase NEG Urine WBC (Auto) 1-5 /hpf Urine RBC (Auto) 5-10 /hpf Urine Hyaline Casts (Auto) 5-10 /lpf Urine Epithelial Cells (Auto) 20-30 /lpf Urine Bacteria (Auto) NEG Urine Crystals AMORPHOUS SEDIMENT Urine Yeast (Auto) Bedside Glucose 208 mg/dl 143 mg/dl White Blood Count 12.10 K/uL Red Blood Count 3.53 M/uL Hemoglobin 10.1 g/dL Hematocrit 28.9 % Mean Corpuscular Volume 81.9 fL Mean Corpuscular Hemoglobin 28.6 pg Mean Corpuscular Hemoglobin Concent 34.9 g/dl Platelet Count 367 K/uL Mean Platelet Volume 8.7 fL Neutrophils (%) (Auto) 86.5 % Lymphocytes (%) (Auto) 4.7 % Monocytes (%) (Auto) 5.7 % Eosinophils (%) (Auto) 0.1 % Basophils (%) (Auto) 0.1 % Neutrophils # (Auto) 10.47 K/uL Lymphocytes # (Auto) 0.57 K/uL Monocytes # (Auto) 0.69 K/uL Eosinophils # (Auto) 0.01 K/uL Basophils # (Auto) 0.01 K/uL RDW Standard Deviation 50.1 fL RDW Coefficient of Variation 16.6 % Immature Granulocyte % (Auto) 2.9 % Immature Granulocyte # (Auto) 0.35 K/uL Prothrombin Time 59.5 SECONDS Prothromb Time International Ratio 5.2 Sodium Level 134 mmol/L Potassium Level 3.8 mmol/L Chloride Level 100 mmol/L Carbon Dioxide Level 27 mmol/L Anion Gap 7.0 mmol/L Blood Urea Nitrogen 20 mg/dl Creatinine 1.42 mg/dl Est Creatinine Clear Calc Drug Dose 52.4 ml/min Estimated GFR () 57.2 Estimated GFR (Non- 49.3 BUN/Creatinine Ratio 14.3 Random Glucose 145 mg/dl Calcium Level 8.8 mg/dl Magnesium Level 1.8 mg/dl Test 01/17/17 11:31 Bedside Glucose 223 mg/dl Date/Time Source Procedure Growth Status 01/16/17 18:40 Blood Blood Culture - Preliminary Gram Positive Cocci Resulted 01/16/17 17:25 Blood Blood Culture - Preliminary Gram Positive Cocci Resulted 01/17/17 08:45 Sputum Expectorated Sputum Gram Stain - Final Resulted 01/17/17 08:45 Sputum Expectorated Sputum Sputum Culture Pending Resulted 01/16/17 22:17 Urine,Catheterized Urine Culture Pending Received Assessment & Plan 71 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 Lives in [place] and states that "I was told I had pneumonia." Reports malaise with fevers, chills and cough since Tuesday (3 days ago). Today is somewhat improved-states he didn't get much sleep last night so he speaks to me supine and mostly with his eyes closed, but he is alert and appropriate. He is noticeable deconditioned and has trouble rolling over in the bed. Needs strict aspiration precautions which were explained to him. Denies SOB but is still requiring a small amount of oxygen. 1. Hypoxemic respiratory failure-HCAP vs aspiration pneumonia. Apprec Speech Path with following recs: Dental soft cut diet with thin liquids Aspiration precautions straws ok Safe swallow strategies (small bites, small sips, slow rate_ DETACKER will continue to monitor EMR closely to determine if Video Swallow is indicated to r/o silent aspiration. 2. Atrial fibrillation w RVR-cont amio and holding coumadin while INR supratherapeutic (5.2). Vit K 2.5mg PO given last night at 2200. Monitor INR 3. ANCA vasculitis-on prednisone treatment and Rituxan infusions as outpatient. 4. Sepsis-resuscitated. 5. Bacteremia-GPCs in 2/2 bottles, vancomycin started. Doxy stopped. Awaiting cultures. Will consult ID for assistance. 6. 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 7. HTN-improved from yesterday, will restart lisinopril 5 tomorrow morning per home regimen. 8. DMII-ISS/glargine, controlled. 9. Anemia-chronic, likely multifactorial, no active bleeding. At baseline. Monitor. 10. Hx MRSA DVT prophylaxis, Coumadin Full code Dispo-cont telemetry. Nursing notified me of the patient's complaint to not have q4h vitals. Will keep these going in setting of sepsis from pulm source and bacteremia. Evelin Roa DO [facility] Hospitalist Current Inpatient Medications: Current Inpatient Medications Medications (Trade) Dose Ordered Sig/Lg Route Start Time Stop Time Status Last Admin Dose Admin Acetaminophen (Tylenol Tab) 650 mg Q4H PRN PO 01/16/17 21:45 02/15/17 21:44 01/17/17 03:49 650 MG Nitroglycerin (Nitrostat Tab) 0.4 mg UD PRN SL 01/16/17 21:45 02/15/17 21:44 Insulin Aspart (novoLOG ASPART) SLIDING SCALE If C... ACHS SC 01/17/17 06:30 02/16/17 06:29 01/17/17 12:44 2 UNITS Glucose (Glucose 40% Gel) 15-30 GRAMS 15 GRAMS... UD PRN PO 01/16/17 21:45 02/15/17 21:44 Glucose (Glucose Chew Tab) 4-8 Tablets 4 Tabl... UD PRN PO 01/16/17 21:45 02/15/17 21:44 Dextrose (Dextrose 50% 50ML Syringe) 25-50ML OF 50% DW IV FOR... UD PRN IV 01/16/17 21:45 02/15/17 21:44 Glucagon (Glucagon Inj) 1 mg UD PRN SQ 01/16/17 21:45 02/15/17 21:44 Piperacillin Sod/ Tazobactam Sod (Consult) 1 ea UD PRN N/A 01/17/17 09:00 02/16/17 08:59 Ferrous Sulfate (Feosol Tab) 325 mg BIDM PO 01/17/17 08:00 02/16/17 07:59 01/17/17 08:43 325 MG Pantoprazole Sodium (Protonix Tab) 40 mg DAILY PO 01/17/17 09:00 02/16/17 08:59 01/17/17 08:00 40 MG Prednisone (PredniSONE TAB) 20 mg DAILY PO 01/17/17 09:00 02/16/17 08:59 01/17/17 08:43 20 MG Ipratropium [place] (Atrovent 0.02% 0.5MG/2.5ML Neb) 0.5 mg Q6R INH 01/16/17 22:00 02/15/17 21:59 01/17/17 14:28 0.5 MG Levalbuterol (Xopenex 1.25MG/ 0.5ML Neb) 1.25 mg Q6R INH 01/16/17 22:00 02/15/17 21:59 11/6/17 14:28 1.25 MG Piperacillin Sod/ Tazobactam Sod 3.375 gm/Dextrose 115 ml @ 28.75 mls/ hr Q8H IV 01/17/17 00:00 01/23/17 00:00 01/17/17 08:57 28.75 MLS/HR Amiodarone HCl (Cordarone Tab) 200 mg DAILY PO 01/18/17 09:00 02/16/17 08:59 Ipratropium [place] (Atrovent 0.02% 0.5MG/2.5ML Neb) 0.5 mg Q2H PRN INH 01/17/17 04:00 02/16/17 03:59 Levalbuterol (Xopenex 1.25MG/ 0.5ML Neb) 1.25 mg Q2H PRN INH 01/17/17 04:00 02/16/17 03:59 Insulin Glargine (Lantus Solostar Pen) 6 units BID SC 01/17/17 09:00 02/16/17 08:59 01/17/17 08:32 6 UNITS Vancomycin HCl (Consult) 1 ea UD PRN N/A 01/17/17 10:30 02/16/17 10:29 Vancomycin HCl 1250 mg/Sodium Chloride 275 ml @ 125 mls/hr Q18H IV 01/18/17 04:00 02/01/17 03:59
[2017-01-17] MEDS ORDERED: INSULIN GLARGINE SOLOSTAR 100 UNITS/ML 3 ML PEN SC ONE (19:45)
[2017-01-18] VITALS (16 sets, daily range): BP systolic 106–129; BP diastolic 67–78; PULSE 82–106; TEMP 36.3–36.6; O2SAT 92–98; BMI 26.2
[2017-01-18] MEDS: IPRATROPIUM BROMIDE NEB SOLN 0.02% 2.5 ML VIAL INH SCH ×4 (02:07→19:38)
[2017-01-18] MEDS: LEVALBUTEROL 1.25MG/0.5ML NEB INH SCH ×4 (02:07→19:38)
[2017-01-18] MEDS ORDERED: INSULIN GLARGINE SOLOSTAR 100 UNITS/ML 3 ML PEN SC STA (03:00)
[2017-01-18] MEDS ORDERED: VANCOMYCIN INJ 1,250 MG in SODIUM CHLORIDE 0.9% 250ML 250 ML IV SCH ×2 (04:00→16:00)
[2017-01-18] MEDS: ACETAMINOPHEN 325 MG TAB PO PRN ×2 (04:02→18:34)
[2017-01-18 07:02] LABS: MEAN CELL VOLUME 80.6 fL (80-100); MEAN CORPUSCULAR HEMOGLOBIN 26.8 pg (25-34); MEAN CORPUSCULAR HGB CONC 33.2 g/dl (32-36); MEAN PLATELET VOLUME 8.4 fL (7.4-10.4); PLATELET COUNT 313 K/uL (130-400); WHITE BLOOD COUNT 9.66 K/uL (4.8-10.8)
[2017-01-18 07:14] LABS: INR 2.2 (0.9-1.1)
[2017-01-18 07:30] LABS: ANISOCYTOSIS PRESENT; BASO % 0.1 %; BASO ABS # 0.01 K/uL (0-0.2); COMPLETE YES; DOHLE BODIES 1+; EOS % 1.2 %; IG% 5.6 %; LYMPH % 10.7 %; LYMPH ABS # 1.03 K/uL (1.2-3.4); MONO % 5.2 %; NEUT % 77.2 %; OVALOCYTES 2+; POIKILOCYTOSIS PRESENT; SCHISTOCYTES 1+; TOXIC GRANULATION 1+
[2017-01-18 07:38] LABS: BUN/CREATININE RATIO 16.6 (10-20); CALCIUM 8.2 mg/dl (8.5-10.1); CREATININE 1.18 mg/dl (0.60-1.40); POTASSIUM 3.3 mmol/L (3.5-5.1)
[2017-01-18] MEDS: PIPERACILL/TAZOBAC IV 3.375 GM in DEXTROSE 5% 100ML IV SCH (08:00)
[2017-01-18] MEDS: FERROUS SULFATE 325 MG TAB PO SCH ×2 (08:20→18:29)
[2017-01-18] MEDS: AMIODARONE 200 MG TAB PO SCH (08:23)
[2017-01-18] MEDS: PANTOprazole SOD 40 MG TAB PO SCH (08:29)
[2017-01-18] MEDS: LISINOPRIL 5 MG TAB PO SCH (08:31)
[2017-01-18] MEDS: INSULIN ASPART 100 UNITS/ML 3 ML PEN SC SCH ×4 (08:42→20:58)
[2017-01-18] MEDS: INSULIN GLARGINE SOLOSTAR 100 UNITS/ML 3 ML PEN SC SCH ×2 (08:44→20:59)
[2017-01-18] MEDS ORDERED: INSULIN GLARGINE SOLOSTAR 100 UNITS/ML 3 ML PEN SC SCH (09:00)
[2017-01-18] MEDS ORDERED: POTASSIUM CHLORIDE 20 MEQ/15 ML UDC PO ONE (10:00)
--- NOTE | 2017-01-18 10:34 | Medical Consult ---
Consultation Date of Consultation: Jan 18, 2017. Attending Physician: Evelin Roa DO Reason for Consultation: Bacteremia History of Present Illness 71-year-old male with complicated past medical history including atrial fibrillation, diabetes mellitus, pulmonary emboli, hospitalization for emboli requiring IVC filter, subsequent hospitalization with MRSA bacteremia ultimately requiring therapy with daptomycin and ceftaroline. This was associated with hand abscess which required incision and drainage. Patient was sent to rehab, but over the last several days developed increasing cough, shortness of breath, with yellow sputum, associated with fever chills. Was readmitted to the hospital and found to have bilateral consolidative changes consistent with developing pneumonia, and blood cultures now reported positive for Staph aureus, sensitivities pending. Patient currently being treated with IV vancomycin and Zosyn. Feels slightly better than yesterday. Still with cough and yellow sputum. Tolerating his antibiotics without apparent difficulty. No other significant travel or exposure history. Past Medical/Surgical History Medical Problems: (1) Atrial fibrillation with RVR Status: Acute (2) Pneumonia Status: Acute (3) Sepsis Status: Acute Medical Problems: (1) Atrial fibrillation (2) Respiratory failure, acute Family History Noncontributory Social History Smoking Status: Former Smoker Housing Status: lives with family Allergies Coded Allergies: No Known Allergies (Unverified , 01/16/17) Current Inpatient Medications Current Inpatient Medications Medications (Trade) Dose Ordered Sig/Lg Route Start Time Stop Time Status Last Admin Dose Admin Acetaminophen (Tylenol Tab) 650 mg Q4H PRN PO 01/16/17 21:45 02/15/17 21:44 01/18/17 04:02 650 MG Nitroglycerin (Nitrostat Tab) 0.4 mg UD PRN SL 01/16/17 21:45 02/15/17 21:44 Insulin Aspart (novoLOG ASPART) SLIDING SCALE If C... ACHS SC 01/17/17 06:30 02/16/17 06:29 01/18/17 08:42 2 UNITS Glucose (Glucose 40% Gel) 15-30 GRAMS 15 GRAMS... UD PRN PO 01/16/17 21:45 02/15/17 21:44 Glucose (Glucose Chew Tab) 4-8 Tablets 4 Tabl... UD PRN PO 01/16/17 21:45 02/15/17 21:44 Dextrose (Dextrose 50% 50ML Syringe) 25-50ML OF 50% DW IV FOR... UD PRN IV 01/16/17 21:45 02/15/17 21:44 Glucagon (Glucagon Inj) 1 mg UD PRN SQ 01/16/17 21:45 02/15/17 21:44 Piperacillin Sod/ Tazobactam Sod (Consult) 1 ea UD PRN N/A 01/17/17 09:00 02/16/17 08:59 Ferrous Sulfate (Feosol Tab) 325 mg BIDM PO 01/17/17 08:00 02/16/17 07:59 01/18/17 08:20 325 MG Pantoprazole Sodium (Protonix Tab) 40 mg DAILY PO 01/17/17 09:00 02/16/17 08:59 01/18/17 08:29 40 MG Ipratropium [place] (Atrovent 0.02% 0.5MG/2.5ML Neb) 0.5 mg Q6R INH 01/16/17 22:00 02/15/17 21:59 01/18/17 07:29 0.5 MG Levalbuterol (Xopenex 1.25MG/ 0.5ML Neb) 1.25 mg Q6R INH 01/16/17 22:00 02/15/17 21:59 01/18/17 07:30 1.25 MG Piperacillin Sod/ Tazobactam Sod 3.375 gm/Dextrose 115 ml @ 28.75 mls/ hr Q8H IV 01/17/17 00:00 01/23/17 00:00 01/18/17 08:00 28.75 MLS/HR Amiodarone HCl (Cordarone Tab) 200 mg DAILY PO 01/18/17 09:00 02/16/17 08:59 01/18/17 08:23 200 MG Ipratropium [place] (Atrovent 0.02% 0.5MG/2.5ML Neb) 0.5 mg Q2H PRN INH 01/17/17 04:00 02/16/17 03:59 Levalbuterol (Xopenex 1.25MG/ 0.5ML Neb) 1.25 mg Q2H PRN INH 01/17/17 04:00 02/16/17 03:59 Vancomycin HCl (Consult) 1 ea UD PRN N/A 01/17/17 10:30 02/16/17 10:29 Lisinopril (Zestril Tab) 5 mg QAM PO 01/18/17 09:00 02/17/17 08:59 01/18/17 08:31 5 MG Prednisone (PredniSONE TAB) 15 mg DAILY PO 01/18/17 09:00 02/17/17 08:59 01/18/17 08:28 15 MG Insulin Glargine (Lantus Solostar Pen) 15 units BID SC 01/18/17 09:00 02/16/17 08:59 01/18/17 08:44 15 UNITS Warfarin Sodium (Coumadin Tab) 4 mg DAILY@1800 PO 01/18/17 18:00 02/17/17 17:59 Vancomycin HCl 1250 mg/Sodium Chloride 275 ml @ 125 mls/hr Q12H IV 01/18/17 16:00 02/01/17 15:59 Review of Systems Constitutional: + fever, + weakness, + fatigue Eyes: No problem reported ENT: No problem reported Respiratory: + cough, + sputum, + shortness of breath Cardiovascular: + chest pain Abdomen: + nausea Musculoskeletal: No problem reported Genitourinary - Male: No problem reported Neurologic: No problem reported Psychiatric: No problem reported Endocrine: No problem reported Hematologic / Lymphatic: No problem reported Integumentary: No problem reported Allergic / Immunologic: No problem reported Physical Exam Date Time Temp Pulse Resp B/P (MAP) Pulse Ox O2 Delivery O2 Flow Rate FiO2 01/18/17 08:48 36.5 88 16 111/73 (86) 96 Room Air 01/18/17 07:42 95 Nasal Cannula 2.0 01/18/17 07:32 97 16 96 Nasal Cannula 1.5 01/18/17 04:00 95 Nasal Cannula 2.0 01/18/17 04:00 36.6 97 16 116/77 (90) 95 Nasal Cannula 1.0 01/18/17 00:20 36.3 88 18 113/71 (85) 96 Nasal Cannula 2.0 01/18/17 00:00 95 Nasal Cannula 2.0 01/18/17 00:00 95 Nasal Cannula 2.0 01/17/17 20:49 36.6 93 18 122/71 (88) 95 Nasal Cannula 3.0 01/17/17 20:00 95 Nasal Cannula 2.0 01/17/17 19:30 102 18 94 Nasal Cannula 3.0 01/17/17 16:52 36.8 108 18 116/70 (85) 90 Room Air 01/17/17 15:30 95 Nasal Cannula 2.0 01/17/17 14:28 89 18 94 Nasal Cannula 3.0 01/17/17 14:20 92 01/17/17 12:00 Nasal Cannula 3.0 01/17/17 11:33 37.0 116 18 119/76 (90) 95 Nasal Cannula 2.0 General Appearance: WD/WN, no apparent distress Head: normocephalic, atraumatic Eyes: normal inspection, PERRL, sclerae normal ENT: normal ENT inspection, pharynx normal Neck: supple, no adenopathy, thyroid normal, trachea midline Respiratory/Chest: chest non-tender, lungs clear, normal breath sounds, no respiratory distress Cardiovascular: regular rate, rhythm, no gallop, no murmur Abdomen/GI: normal bowel sounds, non tender, soft, no organomegaly Back: normal inspection, no CVA tenderness Extremities/Musculoskelatal: no calf tenderness, non-tender Neurologic/Psych: alert, oriented x 3 Skin: normal color, warm/dry, no rash Lymphatic: no adenopathy Laboratory Results RUN DATE: 01/18/17 [facility] LAB PAGE 1 RUN TIME: 748 Specimen Inquiry PATIENT: FAVIO BENITO LOC: [facility] # : [id number] AGE/SX: 71/M ROOM: [facility] REG : 01/16/[address]: Evelin Roa, : 1945 BED: 2 DIS : STATUS: ADM IN TLOC: SPEC #: [id number] JOHN: 01/16/17 STATUS: RES REQ #: [id number] RECD: 01/16/[address]: Richie Zamorano DO SOURCE: BLOOD ENTR: 01/16/[address]: Terry Pérez D.OJuan Antonio [facility]: ORDERED: BLOOD CULTURE Procedure Result Verified Site BLD CULT Preliminary 01/18/17-748 Organism 1 STAPHYLOCOCCUS AUREUS SENS SENSITIVITY TO FOLLOW Phoned Positive Blood Culture Gram Stain Report to OSMIN CARTER on 01/17/17 At 0934 By [facility]. Results were verbalized back to [facility]. Last 24 Hours Test 01/17/17 11:31 01/17/17 16:20 01/17/17 20:49 01/18/17 06:44 Bedside Glucose 223 mg/dl 233 mg/dl 342 mg/dl White Blood Count 9.66 K/uL Red Blood Count 3.10 M/uL Hemoglobin 8.3 g/dL Hematocrit 25.0 % Mean Corpuscular Volume 80.6 fL Mean Corpuscular Hemoglobin 26.8 pg Mean Corpuscular Hemoglobin Concent 33.2 g/dl Platelet Count 313 K/uL Mean Platelet Volume 8.4 fL Neutrophils (%) (Auto) 77.2 % Lymphocytes (%) (Auto) 10.7 % Monocytes (%) (Auto) 5.2 % Eosinophils (%) (Auto) 1.2 % Basophils (%) (Auto) 0.1 % Neutrophils # (Auto) 7.46 K/uL Lymphocytes # (Auto) 1.03 K/uL Monocytes # (Auto) 0.50 K/uL Eosinophils # (Auto) 0.12 K/uL Basophils # (Auto) 0.01 K/uL RDW Standard Deviation 49.5 fL RDW Coefficient of Variation 16.6 % Immature Granulocyte % (Auto) 5.6 % Immature Granulocyte # (Auto) 0.54 K/uL Toxic Granulation 1+ Dohle Bodies 1+ Poikilocytosis PRESENT Anisocytosis PRESENT Ovalocytes 2+ Schistocytes 1+ Prothrombin Time 24.0 SECONDS Prothromb Time International Ratio 2.2 Sodium Level 136 mmol/L Potassium Level 3.3 mmol/L Chloride Level 103 mmol/L Carbon Dioxide Level 25 mmol/L Anion Gap 8.0 mmol/L Blood Urea Nitrogen 20 mg/dl Creatinine 1.18 mg/dl Est Creatinine Clear Calc Drug Dose 63.0 ml/min Estimated GFR () 71.5 Estimated GFR (Non- 61.7 BUN/Creatinine Ratio 16.6 Random Glucose 140 mg/dl Calcium Level 8.2 mg/dl Test 01/18/17 07:17 Bedside Glucose 132 mg/dl Patient Name: FAVIO BENITO Unit Number: [id number] Dictated: 01/16/171905 Transcribed: 01/16/171905 EV Printed Date/Time: [~ rep prt dt]/[~ rep prt tm] [~ rep ct labl] - [~ rep ct ivnm] [facility] [place] [address] Dictated: 01/16/171905 Transcribed: 01/16/171905 EV Printed Date/Time: [~ rep prt dt]/[~ rep prt tm] [~ rep ct labl] - [~ rep ct ivnm] SINGLE VIEW CHEST CLINICAL HISTORY: Fever. FINDINGS: An AP, portable, upright chest radiograph is obtained. No prior studies are available for comparison at the time of dictation. The examination is degraded by portable technique and apical lordotic positioning. The heart is enlarged and there is atherosclerotic calcification of the thoracic aorta. There is pulmonary vascular congestion. Airspace opacities are suggested at both lung bases. No large pleural effusion or pneumothorax is seen. The skeletal structures are osteopenic. The bony thorax is grossly intact. IMPRESSION: 1. Cardiomegaly with mild pulmonary vascular congestion. 2. Patchy airspace opacities are present at both lung bases. Correlate clinically for evidence of an infectious/inflammatory pneumonitis. Radiographic follow-up to resolution is recommended. Electronically signed by: Conor Cannon M.D. 01/16/2017 7:07 PM Dictated Date/Time: 01/16/2017 7:06 PM The status of this report is Signed. Draft = Not yet reviewed or approved by Radiologist. Signed = Reviewed and approved by Radiologist. <AttendingPhy></AttendingPhy> <FamilyPhy>Terry Pérez D.O.</FamilyPhy> < PrimaryPhy>Terry Pérez D.O.</PrimaryPhy> <UnitNumber>[id number]</UnitNumber > <VisitNumber>[id number]</VisitNumber> <PatientName>FAVIO BENITO</ PatientName> <DateOfBirth>1945</DateOfBirth> <Location>[facility]</Location> < ServiceDate>01/16/17</ServiceDate> <MNE>ESINDI</MNE> <OrderingPhy>Richie Zamorano DO</OrderingPhy> <OrderingPhyMNE>f rep ord dr mne</OrderingPhyMNE> < DictatingPhyMNE>f rep dict dr britton</DictatingPhyMNE> <CCListMNE>f rep ct tobi</ CCListMNE> <AdmittingPhyMNE>f pt admit dr britton</AdmittingPhyMNE> <AttendingPhyMNE >f pt attend dr britton</AttendingPhyMNE> <ConsultingPhyMNE>f pt consult dr britton</ConsultingPhyMNE> <FamilyPhyMNE>f pt fam dr britton</FamilyPhyMNE> <OtherPhyMNE>f pt other dr britton</OtherPhyMNE> < PrimaryPhyMNE>f pt prim care dr britton</PrimaryPhyMNE> <ReferringPhyMNE>f pt referring dr britton</ReferringPhyMNE> Assessment & Plan 71-year-old male with recurrent Staph aureus bacteremia, 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 Patient will be changed to IV ceftaroline 600 mg q.12 hours and would obtain follow-up cultures tomorrow to ensure clearance of bacteremia. Patient will require repeat echocardiogram, likely SACHA to ensure no evidence of right-sided endocarditis. Will follow.
[2017-01-18] MEDS: CEFTAROLINE FOSAMIL INJ 600 MG in SODIUM CHLORIDE 0.9% 250ML 250 ML IV SCH (13:10)
[2017-01-18] MEDS: WARFARIN SOD 4 MG TAB PO SCH (18:29)
--- NOTE | 2017-01-18 23:16 | Progress Note ---
Medicine Progress Note Date & Time of Visit: Jan 18, 2017 at 1000. 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 Lives in [place] and states that "I was told I had pneumonia." Reports malaise with fevers, chills and cough since Tuesday (3 days ago). Today is somewhat improved. Denies SOB but is still requiring a small amount of oxygen. Denies any other symptoms at this time. Objective Last 8 Hrs Date Time Temp Pulse Resp B/P (MAP) Pulse Ox O2 Delivery O2 Flow Rate FiO2 01/18/17 23:04 36.4 91 16 129/78 (95) 97 Room Air 01/18/17 20:13 36.5 97 18 116/75 (89) 97 Room Air 01/18/17 20:00 97 Nasal Cannula 2.0 01/18/17 19:43 89 15 98 Nasal Cannula 2.0 01/18/17 15:30 92 Nasal Cannula 2.0 01/18/17 15:24 36.6 106 18 127/71 (89) 92 2.0 Physical Exam: GEN: WNWD, in no acute distress, alert and appropriate, supine, deconditioned. HEENT: NC/AT, normal sclerae, MMM CARDIO: reg rate, S1/2 heard without m/g/r LUNGS: CTA bilaterally, no crackles, rales or wheezes, good diaphragmatic excursion ABD: soft, non-tender, non-distended, no rebound or guarding, +BS EXTREMITY: RP and DP palpable 2+ bilat, no LE swelling or edema, extremities are warm and well-perfused N/M: very deconditioned. SKIN: warm and dry Laboratory Results: 01/18/17 06:44 Red Blood Count 3.10, Mean Corpuscular Volume 80.6, Mean Corpuscular Hemoglobin 26.8, Mean Corpuscular Hemoglobin Concent 33.2, Mean Platelet Volume 8.4, Neutrophils (%) (Auto) 77.2, Lymphocytes (%) (Auto) 10.7, Monocytes (%) (Auto) 5.2, Eosinophils (%) (Auto) 1.2, Basophils (%) (Auto) 0.1, Neutrophils # (Auto) 7.46, Lymphocytes # (Auto) 1.03, Monocytes # (Auto) 0.50, Eosinophils # (Auto) 0.12, Basophils # (Auto) 0.01 01/18/17 06:44 Test 01/16/17 17:25 01/16/17 17:53 01/16/17 18:44 01/16/17 20:44 Estimated Average Glucose 203 mg/dl Hemoglobin A1c 8.7 % (4.5-5.6) Total Bilirubin 0.7 mg/dl (0.2-1) Direct Bilirubin 0.3 mg/dl (0-0.2) Aspartate Amino Transf (AST/SGOT) 15 U/L (15-37) Alanine Aminotransferase (ALT/SGPT) 19 U/L (12-78) Alkaline Phosphatase 90 U/L (45-117) Total Creatine Kinase 21 U/L (39-308) Creatine Kinase MB < 0.5 ng/ml (0.5-3.6) Creatine Kinase MB Ratio (0-3.0) Troponin I < 0.015 ng/ml (0-0.045) Pro-B-Type Natriuretic Peptide 1654 pg/ml (0-900) Total Protein 6.7 gm/dl (6.4-8.2) Albumin 2.1 gm/dl (3.4-5.0) Thyroid Stimulating Hormone (TSH) 2.440 uIu/ml (0.300-4.500) Influenza Type A Antigen Neg for Influ A (NEG) Influenza Type B Antigen Neg for Influ B (NEG) Bedside Lactic Acid Venous 1.09 mmol/L (0.90-1.70) Arterial Blood pH 7.47 (7.35-7.45) Arterial Blood Partial Pressure CO2 33 mmHg (35-46) Arterial Blood Partial Pressure O2 81 mm/Hg (80-95) Arterial Blood HCO3 24 mmol/L (19-24) Arterial Blood Oxygen Saturation 95.4 % (90-95) Arterial Blood Base Excess 0.4 mEq/L (-9-1.8) Arterial Blood Gas Delivery 3L O2 Mendoza Test POS (POS) Test 01/16/17 22:17 01/17/17 06:29 01/18/17 06:44 01/18/17 20:30 Urine Color YELLOW Urine Appearance CLEAR (CLEAR) Urine pH 5.5 (4.5-7.5) Urine Specific [place] 1.025 (1.000-1.030) Urine Protein 2+ (NEG) Urine Glucose (UA) TRACE (NEG) Urine Ketones NEG (NEG) Urine Occult Blood 2+ (NEG) Urine Nitrite NEG (NEG) Urine Bilirubin NEG (NEG) Urine Urobilinogen NEG (NEG) Urine Leukocyte Esterase NEG (NEG) Urine WBC (Auto) 1-5 /hpf (0-5) Urine RBC (Auto) 5-10 /hpf (0-4) Urine Hyaline Casts (Auto) 5-10 /lpf (0-5) Urine Epithelial Cells (Auto) 20-30 /lpf (0-5) Urine Bacteria (Auto) NEG (NEG) Urine Crystals AMORPHOUS SEDIMENT (NONE Urine Yeast (Auto) (NONE PRSENT) Magnesium Level 1.8 mg/dl (1.8-2.4) White Blood Count 9.66 K/uL (4.8-10.8) Red Blood Count 3.10 M/uL (4.7-6.1) Hemoglobin 8.3 g/dL (14.0-18.0) Hematocrit 25.0 % (42-52) Mean Corpuscular Volume 80.6 fL (80-100) Mean Corpuscular Hemoglobin 26.8 pg (25-34) Mean Corpuscular Hemoglobin Concent 33.2 g/dl (32-36) Platelet Count 313 K/uL (130-400) Mean Platelet Volume 8.4 fL (7.4-10.4) Neutrophils (%) (Auto) 77.2 % Lymphocytes (%) (Auto) 10.7 % Monocytes (%) (Auto) 5.2 % Eosinophils (%) (Auto) 1.2 % Basophils (%) (Auto) 0.1 % Neutrophils # (Auto) 7.46 K/uL (1.4-6.5) Lymphocytes # (Auto) 1.03 K/uL (1.2-3.4) Monocytes # (Auto) 0.50 K/uL (0.11-0.59) Eosinophils # (Auto) 0.12 K/uL (0-0.5) Basophils # (Auto) 0.01 K/uL (0-0.2) RDW Standard Deviation 49.5 fL (36.4-46.3) RDW Coefficient of Variation 16.6 % (11.5-14.5) Immature Granulocyte % (Auto) 5.6 % Immature Granulocyte # (Auto) 0.54 K/uL (0.00-0.02) Toxic Granulation 1+ Dohle Bodies 1+ Poikilocytosis PRESENT Anisocytosis PRESENT Ovalocytes 2+ Schistocytes 1+ Prothrombin Time 24.0 SECONDS (9.0-12.0) Prothromb Time International Ratio 2.2 (0.9-1.1) Anion Gap 8.0 mmol/L (3-11) Est Creatinine Clear Calc Drug Dose 63.0 ml/min Estimated GFR () 71.5 Estimated GFR (Non- 61.7 BUN/Creatinine Ratio 16.6 (10-20) Calcium Level 8.2 mg/dl (8.5-10.1) Bedside Glucose 280 mg/dl (70-99) Date/Time Source Procedure Growth Status 01/16/17 18:40 Blood Blood Culture - Final Staphylococcus Aureus Complete 01/17/17 08:45 Sputum Expectorated Sputum Gram Stain - Final Resulted 01/17/17 08:45 Sputum Expectorated Sputum Sputum Culture - Preliminary LIGHT NORMAL ZARA Present, Final Rep... Resulted 01/16/17 22:17 Urine,Catheterized Urine Culture - Preliminary NO GROWTH - LESS THAN 1,000 COLONIES/... Resulted Last 24 Hours Test 01/18/17 06:44 01/18/17 07:17 01/18/17 11:36 01/18/17 16:02 White Blood Count 9.66 K/uL Red Blood Count 3.10 M/uL Hemoglobin 8.3 g/dL Hematocrit 25.0 % Mean Corpuscular Volume 80.6 fL Mean Corpuscular Hemoglobin 26.8 pg Mean Corpuscular Hemoglobin Concent 33.2 g/dl Platelet Count 313 K/uL Mean Platelet Volume 8.4 fL Neutrophils (%) (Auto) 77.2 % Lymphocytes (%) (Auto) 10.7 % Monocytes (%) (Auto) 5.2 % Eosinophils (%) (Auto) 1.2 % Basophils (%) (Auto) 0.1 % Neutrophils # (Auto) 7.46 K/uL Lymphocytes # (Auto) 1.03 K/uL Monocytes # (Auto) 0.50 K/uL Eosinophils # (Auto) 0.12 K/uL Basophils # (Auto) 0.01 K/uL RDW Standard Deviation 49.5 fL RDW Coefficient of Variation 16.6 % Immature Granulocyte % (Auto) 5.6 % Immature Granulocyte # (Auto) 0.54 K/uL Toxic Granulation 1+ Dohle Bodies 1+ Poikilocytosis PRESENT Anisocytosis PRESENT Ovalocytes 2+ Schistocytes 1+ Prothrombin Time 24.0 SECONDS Prothromb Time International Ratio 2.2 Sodium Level 136 mmol/L Potassium Level 3.3 mmol/L Chloride Level 103 mmol/L Carbon Dioxide Level 25 mmol/L Anion Gap 8.0 mmol/L Blood Urea Nitrogen 20 mg/dl Creatinine 1.18 mg/dl Est Creatinine Clear Calc Drug Dose 63.0 ml/min Estimated GFR () 71.5 Estimated GFR (Non- 61.7 BUN/Creatinine Ratio 16.6 Random Glucose 140 mg/dl Calcium Level 8.2 mg/dl Bedside Glucose 132 mg/dl 269 mg/dl 307 mg/dl Test 01/18/17 20:30 Bedside Glucose 280 mg/dl Assessment & Plan 71 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 Lives in [place] and states that "I was told I had pneumonia." Reports malaise with fevers, chills and cough since Tuesday (3 days ago). Today is somewhat improved. Denies SOB but is still requiring a small amount of oxygen. Denies any other symptoms at this time. 1. Hypoxemic respiratory failure-HCAP vs aspiration pneumonia. Apprec Speech Path with following recs: Dental soft cut diet with thin liquids Aspiration precautions straws ok Safe swallow strategies (small bites, small sips, slow rate_ TRAIN RESERVATION CLERK will continue to monitor EMR closely to determine if Video Swallow is indicated to r/o silent aspiration. 2. Atrial fibrillation w RVR-cont amio and restarting warfarin today. 3. ANCA vasculitis-on prednisone treatment and Rituxan infusions as outpatient. 4. Sepsis-resuscitated. 5. 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 6. HTN-improved from yesterday, will restart lisinopril 5 tomorrow morning per home regimen. 7. DMII-ISS/glargine, controlled. 8. Anemia-chronic, likely multifactorial, no active bleeding. Slightly lower than baseline. Monitor. 9. Hx MRSA DVT prophylaxis, Coumadin Full code Dispo-cont telemetry. Nursing notified me of the patient's complaint to not have q4h vitals. Will keep these going in setting of sepsis from pulm source and bacteremia. DO [facility] Hospital[facility] Consultants: ID Current Inpatient Medications: Current Inpatient Medications Medications (Trade) Dose Ordered Sig/Lg Route Start Time Stop Time Status Last Admin Dose Admin Acetaminophen (Tylenol Tab) 650 mg Q4H PRN PO 01/16/17 21:45 02/15/17 21:44 01/18/17 18:34 650 MG Nitroglycerin (Nitrostat Tab) 0.4 mg UD PRN SL 01/16/17 21:45 02/15/17 21:44 Insulin Aspart (novoLOG ASPART) SLIDING SCALE If C... ACHS SC 01/17/17 06:30 02/16/17 06:29 01/18/17 20:58 6 UNITS Glucose (Glucose 40% Gel) 15-30 GRAMS 15 GRAMS... UD PRN PO 01/16/17 21:45 02/15/17 21:44 Glucose (Glucose Chew Tab) 4-8 Tablets 4 Tabl... UD PRN PO 01/16/17 21:45 02/15/17 21:44 Dextrose (Dextrose 50% 50ML Syringe) 25-50ML OF 50% DW IV FOR... UD PRN IV 01/16/17 21:45 02/15/17 21:44 Glucagon (Glucagon Inj) 1 mg UD PRN SQ 01/16/17 21:45 02/15/17 21:44 Ferrous Sulfate (Feosol Tab) 325 mg BIDM PO 01/17/17 08:00 02/16/17 07:59 01/18/17 18:29 325 MG Pantoprazole Sodium (Protonix Tab) 40 mg DAILY PO 01/17/17 09:00 02/16/17 08:59 01/18/17 08:29 40 MG Ipratropium [place] (Atrovent 0.02% 0.5MG/2.5ML Neb) 0.5 mg Q6R INH 01/16/17 22:00 02/15/17 21:59 01/18/17 19:38 0.5 MG Levalbuterol (Xopenex 1.25MG/ 0.5ML Neb) 1.25 mg Q6R INH 01/16/17 22:00 125/17 21:59 01/18/17 19:38 1.25 MG Amiodarone HCl (Cordarone Tab) 200 mg DAILY PO 01/18/17 09:00 02/16/17 08:59 01/18/17 08:23 200 MG Ipratropium [place] (Atrovent 0.02% 0.5MG/2.5ML Neb) 0.5 mg Q2H PRN INH 01/17/17 04:00 02/16/17 03:59 Levalbuterol (Xopenex 1.25MG/ 0.5ML Neb) 1.25 mg Q2H PRN INH 01/17/17 04:00 02/16/17 03:59 Lisinopril (Zestril Tab) 5 mg QAM PO 01/18/17 09:00 02/17/17 08:59 01/18/17 08:31 5 MG Prednisone (PredniSONE TAB) 15 mg DAILY PO 01/18/17 09:00 02/17/17 08:59 01/18/17 08:28 15 MG Insulin Glargine (Lantus Solostar Pen) 15 units BID SC 01/18/17 09:00 02/16/17 08:59 01/18/17 20:59 15 UNITS Warfarin Sodium (Coumadin Tab) 4 mg DAILY@1800 PO 01/18/17 18:00 02/17/17 17:59 01/18/17 18:29 4 MG Ceftaroline Fosamil 600 mg/ Sodium Chloride 270 ml @ 250 mls/hr Q12H IV 01/18/17 13:00 02/01/17 12:59 01/18/17 13:10 250 MLS/HR
[2017-01-19] VITALS (11 sets, daily range): BP systolic 100–136; BP diastolic 63–84; PULSE 80–108; TEMP 36.4–36.7; O2SAT 95–98
[2017-01-19] MEDS: CEFTAROLINE FOSAMIL INJ 600 MG in SODIUM CHLORIDE 0.9% 250ML 250 ML IV SCH ×2 (01:56→13:02)
[2017-01-19] MEDS: IPRATROPIUM BROMIDE NEB SOLN 0.02% 2.5 ML VIAL INH SCH ×4 (02:22→20:41)
[2017-01-19] MEDS: LEVALBUTEROL 1.25MG/0.5ML NEB INH SCH ×4 (02:22→20:41)
[2017-01-19] MEDS ORDERED: VANCOMYCIN TROUGH SCH (03:30)
[2017-01-19 07:58] LABS: HEMATOCRIT 27.1 % (42-52); MEAN CELL VOLUME 80.4 fL (80-100); MEAN CORPUSCULAR HEMOGLOBIN 26.4 pg (25-34); MEAN CORPUSCULAR HGB CONC 32.8 g/dl (32-36); MEAN PLATELET VOLUME 8.7 fL (7.4-10.4); PLATELET COUNT 361 K/uL (130-400); RED BLOOD COUNT 3.37 M/uL (4.7-6.1); WHITE BLOOD COUNT 9.78 K/uL (4.8-10.8)
[2017-01-19 08:07] LABS: INR 2.2 (0.9-1.1); PROTHROMBIN TIME (PATIENT) 24.7 SECONDS (9.0-12.0)
[2017-01-19] MEDS: LISINOPRIL 5 MG TAB PO SCH (08:09)
[2017-01-19] MEDS: FERROUS SULFATE 325 MG TAB PO SCH ×2 (08:09→16:47)
[2017-01-19] MEDS: PANTOprazole SOD 40 MG TAB PO SCH (08:09)
[2017-01-19] MEDS: AMIODARONE 200 MG TAB PO SCH (08:09)
[2017-01-19] MEDS: INSULIN GLARGINE SOLOSTAR 100 UNITS/ML 3 ML PEN SC SCH ×2 (08:14→21:07)
[2017-01-19] MEDS: INSULIN ASPART 100 UNITS/ML 3 ML PEN SC SCH ×4 (08:14→21:06)
[2017-01-19 08:24] LABS: ANISOCYTOSIS PRESENT; BASO % 0.1 %; BASO ABS # 0.01 K/uL (0-0.2); CALCIUM 8.8 mg/dl (8.5-10.1); COMPLETE YES; CREATININE 1.15 mg/dl (0.60-1.40); ECHINOCYTES 1+; EOS % 1.6 %; IG% 7.5 %; LYMPH % 14.3 %; MICROCYTOSIS PRESENT; NEUT % 70.5 %; OVALOCYTES 1+; POIKILOCYTOSIS PRESENT; POTASSIUM 3.7 mmol/L (3.5-5.1); SPHEROCYTE 1+
[2017-01-19] MEDS ORDERED: DILTIAZEM HCL 30 MG TAB PO ONE (16:18)
--- NOTE | 2017-01-19 16:33 | Progress Note ---
Medicine Progress Note Date & Time of Visit: Jan 19, 2017 at 16:14. 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 -pt reports feeling "much better!" today, client care consultant, in good spirits -denies symptoms -tolerating PO -still remains very weak but is improved. -afebrile overnight, no chills. Objective Last 8 Hrs Date Time Temp Pulse Resp B/P (MAP) Pulse Ox O2 Delivery O2 Flow Rate FiO2 01/19/17 14:12 103 16 96 Nasal Cannula 2.0 01/19/17 12:00 Nasal Cannula 2.0 01/19/17 11:27 36.6 88 18 129/78 (95) 96 Nasal Cannula 2.0 Physical Exam: GEN: WNWD, in no acute distress, alert and appropriate, supine, deconditioned. HEENT: NC/AT, normal sclerae, MMM CARDIO: reg rate, S1/2 heard without m/g/r LUNGS: CTA bilaterally, no crackles, rales or wheezes, good diaphragmatic excursion ABD: soft, non-tender, non-distended, no rebound or guarding, +BS EXTREMITY: RP and DP palpable 2+ bilat, no LE swelling or edema, extremities are warm and well-perfused N/M: very deconditioned. SKIN: warm and dry Laboratory Results: 01/19/17 07:17 Red Blood Count 3.37, Mean Corpuscular Volume 80.4, Mean Corpuscular Hemoglobin 26.4, Mean Corpuscular Hemoglobin Concent 32.8, Mean Platelet Volume 8.7, Neutrophils (%) (Auto) 70.5, Lymphocytes (%) (Auto) 14.3, Monocytes (%) (Auto) 6.0, Eosinophils (%) (Auto) 1.6, Basophils (%) (Auto) 0.1, Neutrophils # (Auto) 6.89, Lymphocytes # (Auto) 1.40, Monocytes # (Auto) 0.59, Eosinophils # (Auto) 0.16, Basophils # (Auto) 0.01 01/19/17 07:17 Test 01/16/17 17:25 01/16/17 17:53 01/16/17 18:44 01/16/17 20:44 Estimated Average Glucose 203 mg/dl Hemoglobin A1c 8.7 % (4.5-5.6) Total Bilirubin 0.7 mg/dl (0.2-1) Direct Bilirubin 0.3 mg/dl (0-0.2) Aspartate Amino Transf (AST/SGOT) 15 U/L (15-37) Alanine Aminotransferase (ALT/SGPT) 19 U/L (12-78) Alkaline Phosphatase 90 U/L (45-117) Total Creatine Kinase 21 U/L (39-308) Creatine Kinase MB < 0.5 ng/ml (0.5-3.6) Creatine Kinase MB Ratio (0-3.0) Troponin I < 0.015 ng/ml (0-0.045) Pro-B-Type Natriuretic Peptide 1654 pg/ml (0-900) Total Protein 6.7 gm/dl (6.4-8.2) Albumin 2.1 gm/dl (3.4-5.0) Thyroid Stimulating Hormone (TSH) 2.440 uIu/ml (0.300-4.500) Influenza Type A Antigen Neg for Influ A (NEG) Influenza Type B Antigen Neg for Influ B (NEG) Bedside Lactic Acid Venous 1.09 mmol/L (0.90-1.70) Arterial Blood pH 7.47 (7.35-7.45) Arterial Blood Partial Pressure CO2 33 mmHg (35-46) Arterial Blood Partial Pressure O2 81 mm/Hg (80-95) Arterial Blood HCO3 24 mmol/L (19-24) Arterial Blood Oxygen Saturation 95.4 % (90-95) Arterial Blood Base Excess 0.4 mEq/L (-9-1.8) Arterial Blood Gas Delivery 3L O2 Mendoza Test POS (POS) Test 01/16/17 22:17 01/17/17 06:29 01/18/17 06:44 01/19/17 07:17 Urine Color YELLOW Urine Appearance CLEAR (CLEAR) Urine pH 5.5 (4.5-7.5) Urine Specific [place] 1.025 (1.000-1.030) Urine Protein 2+ (NEG) Urine Glucose (UA) TRACE (NEG) Urine Ketones NEG (NEG) Urine Occult Blood 2+ (NEG) Urine Nitrite NEG (NEG) Urine Bilirubin NEG (NEG) Urine Urobilinogen NEG (NEG) Urine Leukocyte Esterase NEG (NEG) Urine WBC (Auto) 1-5 /hpf (0-5) Urine RBC (Auto) 5-10 /hpf (0-4) Urine Hyaline Casts (Auto) 5-10 /lpf (0-5) Urine Epithelial Cells (Auto) 20-30 /lpf (0-5) Urine Bacteria (Auto) NEG (NEG) Urine Crystals AMORPHOUS SEDIMENT (NONE Urine Yeast (Auto) (NONE PRSENT) Magnesium Level 1.8 mg/dl (1.8-2.4) Toxic Granulation 1+ Dohle Bodies 1+ Schistocytes 1+ White Blood Count 9.78 K/uL (4.8-10.8) Red Blood Count 3.37 M/uL (4.7-6.1) Hemoglobin 8.9 g/dL (14.0-18.0) Hematocrit 27.1 % (42-52) Mean Corpuscular Volume 80.4 fL (80-100) Mean Corpuscular Hemoglobin 26.4 pg (25-34) Mean Corpuscular Hemoglobin Concent 32.8 g/dl (32-36) Platelet Count 361 K/uL (130-400) Mean Platelet Volume 8.7 fL (7.4-10.4) Neutrophils (%) (Auto) 70.5 % Lymphocytes (%) (Auto) 14.3 % Monocytes (%) (Auto) 6.0 % Eosinophils (%) (Auto) 1.6 % Basophils (%) (Auto) 0.1 % Neutrophils # (Auto) 6.89 K/uL (1.4-6.5) Lymphocytes # (Auto) 1.40 K/uL (1.2-3.4) Monocytes # (Auto) 0.59 K/uL (0.11-0.59) Eosinophils # (Auto) 0.16 K/uL (0-0.5) Basophils # (Auto) 0.01 K/uL (0-0.2) RDW Standard Deviation 48.6 fL (36.4-46.3) RDW Coefficient of Variation 16.5 % (11.5-14.5) Immature Granulocyte % (Auto) 7.5 % Immature Granulocyte # (Auto) 0.73 K/uL (0.00-0.02) Poikilocytosis PRESENT Anisocytosis PRESENT Microcytosis PRESENT Spherocytes 1+ Ovalocytes 1+ Echinocytes 1+ Prothrombin Time 24.7 SECONDS (9.0-12.0) Prothromb Time International Ratio 2.2 (0.9-1.1) Anion Gap 7.0 mmol/L (3-11) Est Creatinine Clear Calc Drug Dose 64.7 ml/min Estimated GFR () 73.8 Estimated GFR (Non- 63.7 BUN/Creatinine Ratio 16.0 (10-20) Calcium Level 8.8 mg/dl (8.5-10.1) Test 01/19/17 16:10 Bedside Glucose 237 mg/dl (70-99) Date/Time Source Procedure Growth Status 01/19/17 07:39 Blood Blood Culture Pending Received 01/17/17 08:45 Sputum Expectorated Sputum Gram Stain - Final Complete 01/17/17 08:45 Sputum Expectorated Sputum Sputum Culture - Final LIGHT NORMAL ZARA. Complete 01/16/17 22:17 Urine,Catheterized Urine Culture - Final NO GROWTH - LESS THAN 1,000 COLONIES/ML Complete Last 24 Hours Test 01/18/17 20:30 01/19/17 07:17 01/19/17 07:36 01/19/17 11:45 Bedside Glucose 280 mg/dl 112 mg/dl 221 mg/dl White Blood Count 9.78 K/uL Red Blood Count 3.37 M/uL Hemoglobin 8.9 g/dL Hematocrit 27.1 % Mean Corpuscular Volume 80.4 fL Mean Corpuscular Hemoglobin 26.4 pg Mean Corpuscular Hemoglobin Concent 32.8 g/dl Platelet Count 361 K/uL Mean Platelet Volume 8.7 fL Neutrophils (%) (Auto) 70.5 % Lymphocytes (%) (Auto) 14.3 % Monocytes (%) (Auto) 6.0 % Eosinophils (%) (Auto) 1.6 % Basophils (%) (Auto) 0.1 % Neutrophils # (Auto) 6.89 K/uL Lymphocytes # (Auto) 1.40 K/uL Monocytes # (Auto) 0.59 K/uL Eosinophils # (Auto) 0.16 K/uL Basophils # (Auto) 0.01 K/uL RDW Standard Deviation 48.6 fL RDW Coefficient of Variation 16.5 % Immature Granulocyte % (Auto) 7.5 % Immature Granulocyte # (Auto) 0.73 K/uL Poikilocytosis PRESENT Anisocytosis PRESENT Microcytosis PRESENT Spherocytes 1+ Ovalocytes 1+ Echinocytes 1+ Prothrombin Time 24.7 SECONDS Prothromb Time International Ratio 2.2 Sodium Level 134 mmol/L Potassium Level 3.7 mmol/L Chloride Level 100 mmol/L Carbon Dioxide Level 27 mmol/L Anion Gap 7.0 mmol/L Blood Urea Nitrogen 18 mg/dl Creatinine 1.15 mg/dl Est Creatinine Clear Calc Drug Dose 64.7 ml/min Estimated GFR () 73.8 Estimated GFR (Non- 63.7 BUN/Creatinine Ratio 16.0 Random Glucose 103 mg/dl Calcium Level 8.8 mg/dl Date/Time Source Procedure Growth Status 01/19/17 07:39 Blood Blood Culture Pending Received 01/19/17 07:17 Blood Blood Culture Pending Received Assessment & Plan 71 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 Reports malaise with fevers, chills and cough since Tuesday (3 days ago). Clinically improved on broad spectrum abx switched by ID (01/18) to ceftaroline. He was admitted on Zosyn and Doxy and with +GPCs in blood was empirically switched to Vanc/Zosyn. Discussed plan for Rituxan infusion with Dr. Davis who said that he will not be receiving this infusion at this point and will need to stay on the prednisone 15mg until seeing him in the office. Discharging hospitalist was requested to TT Dr. Tao on discharge so he could set up follow-up appointment. ID consulted and recommends repeat echo; TTE ordered initially but will need SACHA if TTE is negative for findings. Poss seeding of IVC filter? Will consult Heme/Onc to help with asking if this should be removed now that this is the second occurrence of MRSA bacteremia after treatment a couple of months ago. 1. Hypoxemic respiratory failure-HCAP vs aspiration pneumonia. Apprec Speech Path with following recs: Dental soft cut diet with thin liquids Aspiration precautions straws ok Safe swallow strategies (small bites, small sips, slow rate_ PLASTIC EYE TECHNICIAN will continue to monitor EMR closely to determine if Video Swallow is indicated to r/o silent aspiration. Cont abx per ID. Cont early ambulation. Incentive Spirometer, Duonebs as needed. Clinically much improved since admission. 2. Atrial fibrillation w RVR-amio and coumadin continued. Rate is not well controlled and there are no Cardiology outpatient notes available. In the setting of pulmonary disease on B-agonists, I will add low dose diltiazem for better rate control, likely elevated in setting of infection. 3. ANCA vasculitis-on prednisone treatment and Rituxan infusions as outpatient. These are now over per Dr. Davis. Cont prednisone and reconnect with him as outpatient 1-2 weeks post-discharge. 4. MRSA Bactermia-IVC filter a source? Consulting Heme to assist with this. Cont abx per ID. 5. Sepsis-resuscitated. Likely 2/2 pulm source but also in setting of bacteremia. 6. 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 Apprec Heme/Onc recs on if this should be removed in this clinical setting of reoccurring infection. 7. HTN-improved, cont home lisinopril. Cont to monitor BP closely in setting of newly added diltiazem. 8. DMII-ISS/glargine, uncontrolled. Consulting inpatient glycemic pharmacist for assistance. 9. Anemia-chronic, likely multifactorial, no active bleeding. Slightly lower than baseline. Monitor. DVT prophylaxis, Coumadin Full code Dispo-cont telemetry. Nursing notified me of the patient's complaint to not have q4h vitals. Will keep these going in setting of sepsis from pulm source and bacteremia. Evelin Roa DO [facility] Hospitalist Consultants: MARINE-Dr. Mario Roth-Dr. Efrain Puga Current Inpatient Medications: Current Inpatient Medications Medications (Trade) Dose Ordered Sig/Lg Route Start Time Stop Time Status Last Admin Dose Admin Acetaminophen (Tylenol Tab) 650 mg Q4H PRN PO 01/16/17 21:45 02/15/17 21:44 01/18/17 18:34 650 MG Nitroglycerin (Nitrostat Tab) 0.4 mg UD PRN SL 01/16/17 21:45 02/15/17 21:44 Insulin Aspart (novoLOG ASPART) SLIDING SCALE If C... ACHS SC 01/17/17 06:30 02/16/17 06:29 01/19/17 13:01 5 UNITS Glucose (Glucose 40% Gel) 15-30 GRAMS 15 GRAMS... UD PRN PO 01/16/17 21:45 02/15/17 21:44 Glucose (Glucose Chew Tab) 4-8 Tablets 4 Tabl... UD PRN PO 01/16/17 21:45 02/15/17 21:44 Dextrose (Dextrose 50% 50ML Syringe) 25-50ML OF 50% DW IV FOR... UD PRN IV 01/16/17 21:45 02/15/17 21:44 Glucagon (Glucagon Inj) 1 mg UD PRN SQ 01/16/17 21:45 02/15/17 21:44 Ferrous Sulfate (Feosol Tab) 325 mg BIDM PO 01/17/17 08:00 02/16/17 07:59 01/19/17 08:09 325 MG Pantoprazole Sodium (Protonix Tab) 40 mg DAILY PO 01/17/17 09:00 02/16/17 08:59 01/19/17 08:09 40 MG Ipratropium [place] (Atrovent 0.02% 0.5MG/2.5ML Neb) 0.5 mg Q6R INH 01/16/17 22:00 02/15/17 21:59 01/19/17 14:09 0.5 MG Levalbuterol (Xopenex 1.25MG/ 0.5ML Neb) 1.25 mg Q6R INH 01/16/17 22:00 02/15/17 21:59 01/19/17 14:09 1.25 MG Amiodarone HCl (Cordarone Tab) 200 mg DAILY PO 01/18/17 09:00 02/16/17 08:59 01/19/17 08:09 200 MG Ipratropium [place] (Atrovent 0.02% 0.5MG/2.5ML Neb) 0.5 mg Q2H PRN INH 01/17/17 04:00 02/16/17 03:59 Levalbuterol (Xopenex 1.25MG/ 0.5ML Neb) 1.25 mg Q2H PRN INH 01/17/17 04:00 02/16/17 03:59 Lisinopril (Zestril Tab) 5 mg QAM PO 01/18/17 09:00 02/17/17 08:59 01/19/17 08:09 5 MG Prednisone (PredniSONE TAB) 15 mg DAILY PO 01/18/17 09:00 02/17/17 08:59 01/19/17 08:09 15 MG Insulin Glargine (Lantus Solostar Pen) 15 units BID SC 01/18/17 09:00 02/16/17 08:59 01/19/17 08:14 15 UNITS Warfarin Sodium (Coumadin Tab) 4 mg DAILY@1800 PO 01/18/17 18:00 02/17/17 17:59 01/18/17 18:29 4 MG Ceftaroline Fosamil 600 mg/ Sodium Chloride 270 ml @ 250 mls/hr Q12H IV 01/18/17 13:00 02/01/17 12:59 01/19/17 13:02 250 MLS/HR
[2017-01-19] MEDS ORDERED: PHARMACY GLYCEMIC MGMT CONSULT SCH (16:43)
[2017-01-19] MEDS: WARFARIN SOD 4 MG TAB PO SCH (18:03)
[2017-01-19] MEDS: DILTIAZEM HCL 30 MG TAB PO SCH (21:08)
--- NOTE | 2017-01-19 21:12 | Pharmacy Progress Note ---
Glycemic Control Intl Consult Date of Service Jan 19, 2017. Scope Glycemic Pharmacist consulted by Dr Roa on 01/19/17 for glycemic control and to write orders per [facility] inpatient glycemic control protocol Objective Weight (Kilograms): 80.700 Accuchecks BSG (last 24hrs): Test 01/19/17 07:17 01/19/17 07:36 01/19/17 11:45 01/19/17 16:10 Random Glucose 103 mg/dl (70-99) Bedside Glucose 112 mg/dl (70-99) 221 mg/dl (70-99) 237 mg/dl (70-99) Laboratory Data (last 24hrs) Test 01/19/17 07:17 Anion Gap 7.0 mmol/L BUN/Creatinine Ratio 16.0 Blood Urea Nitrogen 18 mg/dl Creatinine 1.15 mg/dl Potassium Level 3.7 mmol/L Sodium Level 134 mmol/L White Blood Count 9.78 K/uL Red Blood Count 3.37 M/uL Hemoglobin 8.9 g/dL Hematocrit 27.1 % Mean Corpuscular Volume 80.4 fL Mean Corpuscular Hemoglobin 26.4 pg Mean Corpuscular Hemoglobin Concent 32.8 g/dl Platelet Count 361 K/uL Mean Platelet Volume 8.7 fL Neutrophils (%) (Auto) 70.5 % Lymphocytes (%) (Auto) 14.3 % Monocytes (%) (Auto) 6.0 % Eosinophils (%) (Auto) 1.6 % Basophils (%) (Auto) 0.1 % Neutrophils # (Auto) 6.89 K/uL Lymphocytes # (Auto) 1.40 K/uL Monocytes # (Auto) 0.59 K/uL Eosinophils # (Auto) 0.16 K/uL Basophils # (Auto) 0.01 K/uL HbA1c Test 01/16/17 17:25 Hemoglobin A1c 8.7 % (4.5-5.6) H Recent Pertinent Medications Outpatient Anti-diabetic Regimen: * Lantus 10 units qpm, Victoza 1.8 mg/0.3 ml daily, Glipizide 20 mg bid * A1c = 8.7 % 01/16/17 The patient is currently receiving: * Basal insulin: Lantus 15 units every 12 hours * Correctional Insulin: Novolog Correction per scale ACHS Goal Range: Low 140 mg/dL - High 180 mg/dL Correction Factor: 25 mg/dL/unit * Prandial insulin: Per carb ratio of 1 unit per 15 grams CHO consumed * Oral Agents: none Risk Factors for Insulin Resistance: * Steroids: Prednisone 15 mg daily * Infection: pneumonia, bacteremia, on ceftaroline * Pressors: no * IVF: no * Recent Surgery: no * Diet: AHA type 2 diabetic, fair oral intake * Mechanical Ventilation: no Assessment & Plan ASSESSMENT: * 71 yo type 2 diabetic with moderate glycemic control prior to admission (A1c 8.7%). BSG's rising through the day, mainly due to steroid. Will tighten carb ratio, add sliding scale for Lantus,and lower goal range. Reassess in am. PLAN FOR INPATIENT GLYCEMIC CONTROL: * Changing Lantus to (10 units SQ if BSG is less than 120) BID (15 units SQ if BSG is 120-150) (20 units SQ if BSG is over 150) * Continuing correction factor 25 mg/dl/unit * Changing carb ratio to 1 unit per 10 grams CHO consumed * Changing goal range to Low 120 mg/dL - High 150 mg/dL * Please note that the plan above was derived based on current level of insulin resistance and hospital stress. These recommendations are appropriate for inpatient admission only. Plan of care upon discharge will need to be reassessed to avoid potential outpatient hypo/hyperglycemia. Thank you.
[2017-01-20] VITALS (15 sets, daily range): BP systolic 84–125; BP diastolic 34–77; PULSE 75–103; TEMP 36.3–36.7; O2SAT 90–98
[2017-01-20] MEDS: CEFTAROLINE FOSAMIL INJ 600 MG in SODIUM CHLORIDE 0.9% 250ML 250 ML IV SCH ×2 (01:13→12:45)
[2017-01-20] MEDS: IPRATROPIUM BROMIDE NEB SOLN 0.02% 2.5 ML VIAL INH SCH ×4 (01:56→20:01)
[2017-01-20] MEDS: LEVALBUTEROL 1.25MG/0.5ML NEB INH SCH ×4 (01:56→20:01)
[2017-01-20] MEDS ORDERED: INSULIN ASPART 100 UNITS/ML 3 ML PEN SC SCH (02:00)
[2017-01-20 07:47] LABS: HEMATOCRIT 26.6 % (42-52); MEAN CELL VOLUME 80.9 fL (80-100); MEAN CORPUSCULAR HEMOGLOBIN 27.7 pg (25-34); MEAN CORPUSCULAR HGB CONC 34.2 g/dl (32-36); MEAN PLATELET VOLUME 8.3 fL (7.4-10.4); PLATELET COUNT 354 K/uL (130-400); RED BLOOD COUNT 3.29 M/uL (4.7-6.1); WHITE BLOOD COUNT 9.85 K/uL (4.8-10.8)
[2017-01-20 07:56] LABS: INR 2.4 (0.9-1.1)
[2017-01-20] MEDS: FERROUS SULFATE 325 MG TAB PO SCH ×2 (08:07→17:12)
[2017-01-20 08:12] LABS: ANISOCYTOSIS PRESENT; COMPLETE YES; EOSINOPHIL % 1.7 %; LYMPH ABS # 1.27 K/uL (1.2-3.4); LYMPHOCYTE % 12.9 %; META ABS # 0.09 K/uL (0-0); METAMYELOCYTE % 0.9 %; MYELOCYTE % 6.9 %; NEUTROPHILS % 75.9 %; OVALOCYTES 2+; POIKILOCYTOSIS PRESENT; SCHISTOCYTES 1+; SPHEROCYTE 1+
[2017-01-20] MEDS: ACETAMINOPHEN 325 MG TAB PO PRN (08:12)
[2017-01-20 08:21] LABS: BUN/CREATININE RATIO 14.9 (10-20); CREATININE 1.2 mg/dl (0.60-1.40); POTASSIUM 3.6 mmol/L (3.5-5.1)
[2017-01-20] MEDS: INSULIN ASPART 100 UNITS/ML 3 ML PEN SC SCH ×4 (09:02→21:30)
[2017-01-20] MEDS: INSULIN GLARGINE SOLOSTAR 100 UNITS/ML 3 ML PEN SC SCH ×2 (09:02→21:31)
[2017-01-20] MEDS: AMIODARONE 200 MG TAB PO SCH (09:03)
[2017-01-20] MEDS: DILTIAZEM HCL 30 MG TAB PO SCH ×3 (09:03→21:32)
[2017-01-20] MEDS: PANTOprazole SOD 40 MG TAB PO SCH (09:03)
[2017-01-20] MEDS: LISINOPRIL 5 MG TAB PO SCH (09:03)
--- NOTE | 2017-01-20 09:19 | Pharmacy Progress Note ---
Glycemic: Assessment & Plan Date of Service Jan 20, 2017. Assessment & Plan Outpatient Anti-diabetic Regimen: * Lantus 10 units qpm, Victoza 1.8 mg/0.3 ml daily, Glipizide 20 mg bid * A1c = 8.7 % 01/16/17 ASSESSMENT: * Pt admitted with respiratory failure/MRSA bacteremia - initiated on antibiotics and PO steroids * Pt received basal/bolus regimen secondary to outpatient regimen on hold/stress /infection/steroids * Patient received 56 units of insulin yesterday and all BSGs above goal range * All prandial BSGs trended upwards through the evening and fasting BSG 173 mg/ dL this AM * Overall tighten regimen based on an estimated total daily dose of ~80 units per day and reassess in the AM PLAN FOR INPATIENT GLYCEMIC CONTROL: * Continue Lantus 10-20 units BID based on BSG trend * Tighten correction factor to 20 mg/dl/unit * Tighten carb ratio to 1 unit per 7 grams CHO consumed * Tighten goal range to Low 110 mg/dL - High 140 mg/dL * Please note that the plan above was derived based on current level of insulin resistance and hospital stress. These recommendations are appropriate for inpatient admission only. Plan of care upon discharge will need to be reassessed to avoid potential outpatient hypo/hyperglycemia. Thank you.
--- NOTE | 2017-01-20 11:01 | ECHOCARDIOGRAM REPORT ---
*NOTICE TO RECEIVING REPUBLICAN AGENCY This information is strictly Confidential and protected under [place] law. [place] law prohibits you from making any further disclosure of this information unless further disclosure is expressly permitted by the written consent of the person to whom it pertains or is authorized by law. A general authorization for the release of medical or other information is not sufficient for this purpose. Hospital accepts no responsibility if the information is made available to any other person, INCLUDING THE PATIENT. Interpretation Summary * Name: FAVIO BENITO Study Date: 01/20/2017 09:32 AM BP: 109/71 mmHg * Patient Location: .[facility]\S\N275\S\2 HR: 90 * : 1945 (M/d/yyyy) Gender: Male Height: 72 in * Age: 71 yrs Ethnicity: CA Weight: 177 lb * Ordering Physician: Evelin Roa * Referring Physician: Self, Referred * Performed By: Pari Jones RDCS * * Reason For Study: MRSA bacteremia, h/o IVC filter, poss seed, this is a reinfection, ro veg * BSA: 2.0 m2 * -- Conclusions -- * The left ventricle is normal in size. * There is normal left ventricular wall thickness. * The left ventricular wall motion is normal. * Ejection Fraction = 55-60%. * There is mild mitral regurgitation. * There is mild to moderate tricuspid regurgitation. * There is moderate thickening of all three aortic valve leaflet edges wtihout visulalized vegetation, No prior echo for comparison. Procedure Details * A complete two-dimensional transthoracic echocardiogram was performed (2D, M-mode, Doppler and color flow Doppler). Left Ventricle * The left ventricle is normal in size. * There is normal left ventricular wall thickness. * Ejection Fraction = 55-60%. * Left ventricular systolic function is normal. * The left ventricular wall motion is normal. Right Ventricle * The right ventricle is normal in size and function. Atria * The left atrial size is normal. * Right atrial size is normal. * No ASD detected; PFO is not assessed. Mitral Valve * The mitral valve anatomy is normal. * There is no mitral valve stenosis. * There is mild mitral regurgitation. Tricuspid Valve * The tricuspid valve anatomy is normal. * There is no tricuspid stenosis. * There is mild to moderate tricuspid regurgitation. Aortic Valve * The aortic valve is trileaflet. * There is moderate thickening of all three aortic valve leaflet edges wtihout visulalized vegetation, No prior echo for comparison. * No hemodynamically significant valvular aortic stenosis. * No aortic regurgitation is present. Pulmonic Valve * The pulmonic valve is not well visualized. Great Vessels * The aortic root is normal size. Pericardium/Pleural * There is no pericardial effusion. Great Vessels * Normal inferior vena cava diameter and respiratory variation suggests normal central venous pressure. MMode 2D Measurements and Calculations IVSd 0.99 cm LVIDd 4.5 cm LVIDs 3.2 cm LVPWd 1.0 cm IVS/LVPW 0.95 FS 29.5 % EDV(Teich) 91.7 ml ESV(Teich) 39.7 ml EF(Teich) 56.7 % EDV(cubed) 90.2 ml ESV(cubed) 31.6 ml EF(cubed) 65.0 % LV mass(C)d 155.6 grams LV mass(C)dI 76.9 grams/m\S\2 SV(Teich) 52.0 ml SI(Teich) 25.7 ml/m\S\2 SV(cubed) 58.7 ml SI(cubed) 29.0 ml/m\S\2 Ao root diam 3.3 cm Ao root area 8.8 cm\S\2 ACS 1.8 cm LA dimension 3.5 cm asc Aorta Diam 3.2 cm LA/Ao 1.1 LVOT diam 2.0 cm LVOT area 3.2 cm\S\2 LVAd ap4 21.9 cm\S\2 LVLd ap4 7.7 cm EDV(MOD-sp4) 51.0 ml EDV(sp4-el) 52.4 ml LVAs ap4 12.3 cm\S\2 LVLs ap4 5.9 cm ESV(MOD-sp4) 21.4 ml ESV(sp4-el) 21.9 ml EF(MOD-sp4) 58.0 % EF(sp4-el) 58.2 % LVAd ap2 27.0 cm\S\2 LVLd ap2 7.8 cm EDV(MOD-sp2) 79.1 ml EDV(sp2-el) 79.6 ml LVAs ap2 16.1 cm\S\2 LVLs ap2 6.5 cm ESV(MOD-sp2) 34.3 ml ESV(sp2-el) 34.2 ml EF(MOD-sp2) 56.6 % EF(sp2-el) 57.1 % LVLd %diff 0.19 % EDV(MOD-bp) 63.9 ml LVLs %diff 9.2 % ESV(MOD-bp) 28.2 ml EF(MOD-bp) 55.9 % SV(MOD-sp4) 29.6 ml SI(MOD-sp4) 14.6 ml/m\S\2 SV(MOD-sp2) 44.8 ml SI(MOD-sp2) 22.1 ml/m\S\2 SV(MOD-bp) 35.7 ml SI(MOD-bp) 17.7 ml/m\S\2 SV(sp4-el) 30.5 ml SI(sp4-el) 15.1 ml/m\S\2 SV(sp2-el) 45.4 ml SI(sp2-el) 22.4 ml/m\S\2 Doppler Measurements and Calculations MV E max anahi 97.0 cm/sec MV A max anahi 55.8 cm/sec MV E/A 1.7 MV dec time 0.21 sec Ao V2 max 143.5 cm/sec Ao max PG 8.2 mmHg Ao max PG (full) 5.2 mmHg JAVON(V,A) 2.0 cm\S\2 JAVON(V,D) 2.0 cm\S\2 LV V1 max PG 3.0 mmHg LV V1 max 87.3 cm/sec PA V2 max 104.5 cm/sec PA max PG 4.4 mmHg PA acc slope 1000.2 cm/sec\S\2 PA acc time 0.08 sec PI max anahi 217.2 cm/sec PI max PG 18.9 mmHg PI dec slope 222.0 cm/sec\S\2 PI P1/2t 286.6 msec TR max anahi 224.2 cm/sec PA pr(Accel) 42.6 mmHg
--- NOTE | 2017-01-20 15:23 | Progress Note ---
Medicine Progress Note Date & Time of Visit: Jan 20, 2017 at 15:22 . Subjective Asymptomatic hypotension with systolic BP's in 90's. No fever. No chest pain. No cough or SOB. No nausea or vomiting. No diarrhea. No urinary symptoms. . Objective Last 8 Hrs Date Time Temp Pulse Resp B/P (MAP) Pulse Ox O2 Delivery O2 Flow Rate FiO2 01/20/17 14:31 75 125/76 (92) 01/20/17 14:16 81 14 94 Room Air 01/20/17 12:45 Room Air 01/20/17 12:37 82 84/34 (51) 01/20/17 11:09 36.3 91 16 90/40 (57) 91 Room Air 01/20/17 10:24 103 90 01/20/17 08:00 92 Room Air 01/20/17 07:41 36.7 87 20 118/64 (82) 91 Nasal Cannula 2.0 Physical Exam: General- lying in bed, no distress Neck- no JVD Lungs- clear to auscultation Heart- irregular, no murmur appreciated Abdomen- + BS, soft, nontender Extremities- trace pretibial edema, no calf tenderness Neuro- alert . Laboratory Results: Last 24 Hours Test 01/19/17 16:10 01/19/17 20:47 01/20/17 02:25 01/20/17 07:35 Bedside Glucose 237 mg/dl 245 mg/dl 195 mg/dl White Blood Count 9.85 K/uL Red Blood Count 3.29 M/uL Hemoglobin 9.1 g/dL Hematocrit 26.6 % Mean Corpuscular Volume 80.9 fL Mean Corpuscular Hemoglobin 27.7 pg Mean Corpuscular Hemoglobin Concent 34.2 g/dl Platelet Count 354 K/uL Mean Platelet Volume 8.3 fL RDW Standard Deviation 48.2 fL RDW Coefficient of Variation 16.3 % Neutrophils % (Manual) 75.9 % Lymphocytes % (Manual) 12.9 % Monocytes % (Manual) 1.7 % Eosinophils % (Manual) 1.7 % Metamyelocytes % 0.9 % Myelocytes % 6.9 % Neutrophils # (Manual) 7.48 K/uL Total Absolute Neutrophils 7.48 K/uL Lymphocytes # (Manual) 1.27 K/uL Total Absolute Lymphocytes 1.27 K/uL Monocytes # (Manual) 0.17 K/uL Eosinophils # (Manual) 0.17 K/uL Metamyelocytes # 0.09 K/uL Myelocytes # 0.68 K/uL Poikilocytosis PRESENT Anisocytosis PRESENT Spherocytes 1+ Ovalocytes 2+ Schistocytes 1+ Prothrombin Time 27.0 SECONDS Prothromb Time International Ratio 2.4 Sodium Level 133 mmol/L Potassium Level 3.6 mmol/L Chloride Level 98 mmol/L Carbon Dioxide Level 28 mmol/L Anion Gap 7.0 mmol/L Blood Urea Nitrogen 18 mg/dl Creatinine 1.20 mg/dl Est Creatinine Clear Calc Drug Dose 60.8 ml/min Estimated GFR () 70.1 Estimated GFR (Non- 60.5 BUN/Creatinine Ratio 14.9 Random Glucose 173 mg/dl Calcium Level 9.0 mg/dl Test 01/20/17 07:36 01/20/17 11:42 01/20/17 12:32 01/20/17 12:47 Bedside Glucose 173 mg/dl 93 mg/dl Erythrocyte Sedimentation Rate 47 mm/hr C-Reactive Protein 5.11 mg/dl Procalcitonin 0.14 ng/ml Lactic Acid Level 2.0 mmol/L Date/Time Source Procedure Growth Status 01/20/17 12:32 Blood Blood Culture Pending Received Assessment & Plan SEPSIS DUE TO MRSA BACTEREMIA / SUSPECTED PNEUMONIA Met criteria for sepsis per 2001 definition and current CMS criteria- fever, leukocytosis, tachycardia. Underlying immunosuppression due to rituximab + prednisone for GPA. Lactate was 1.09. Initial BP 96/57, improved with IV fluids. Blood cultures obtained and initially received broad spectrum antibiotics with IV levofloxacin and piperacillin / tazobactam. Chest x-ray showed pulmonary infiltrates as discussed below. /2 blood cultures day of admission grew MRSA. Prior history of MRSA bacteremia associated with abscess of left hand September 2016. ID consulted. Antibiotic therapy changed to ceftaroline. Repeat blood cultures 01/19 negative thus far. Consider endocarditis- TTE nondiagnostic; tentative SACHA tomorrow. Consider infected IVC filter as discussed below. Consider other occult nidus of infection. Continue IV ceftaroline (started 01/18, today = day # 3). PULMONARY INFILTRATES / PROBABLE PNEUMONIA Patient presented with fever and cough. Chest x-ray showed bibasilar patchy infiltrates. 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 Current symptoms seem to be most consistent with pneumonia rather than relapsing pulmonary GPA. Cough improved. Oxygenating well on RA. Will need f/u chest x-ray to assure resolution. Further evaluation / consultation as necessary if pulmonary status worsens. HYPOXIA O2 sats as low as 84% on RA. Hypoxia probable secondary to pneumonia. Received supplemental O2. Now oxygenating well on RA. S/P PULMONARY EMBOLISM Developed PE ~ 09/27/16 and admitted to [facility] in [place]. IVC filter placed (? temporary). Old records from [facility] requested. Transferred to [facility]. Started on IV heparin and transitioned to warfarin. 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 Consider removal of device- timing and facility to be determined. INR today = 2.4. Continue warfarin. GRANULOMATOUS POLYANGIITIS Presented with diffuse alveolar hemorrhage in September, hospitalized at [facility]. 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 Initially managed with plasmapheresis, steroids, cyclophosphamide. Dr. Roa discussed case with Rheumatology. Rituximab held due to MRSA bacteremia. Continue prednisone. CHRONIC ATRIAL FIB Diltiazem started for better rate control. Continue amiodarone. Continue warfarin. HYPERTENSION / HYPOTENSION History of hypertension treated with lisinopril. Asymptomatic hypotension this morning with systolic BP's in 90's. Does not appear to be septic at this time; procalcitonin 0.14. Diltiazem started for better rate control of AF. Stop lisinopril. Continue diltiazem with hold parameters. SLEEP APNEA Continue CPAP. DM TYPE 2 Not well-controlled. On prednisone for GPA. Septic at time of admission. Random blood sugar in ED 210. Hgb A1C 8.7. Pharmacy consulted for glycemic management. FBS today = 173. Continue Lantus + NovoLog per protocol. VTE PROPHYLAXIS Continue warfarin. DISPOSITION Expected discharge to home. Internal Medicine follow-up with Dr. Pérez. . Consultants: ID-Dr. Mario Oro Heme-Dr. Efrain Puga Current Inpatient Medications: Current Inpatient Medications Medications (Trade) Dose Ordered Sig/Lg Route Start Time Stop Time Status Last Admin Dose Admin Acetaminophen (Tylenol Tab) 650 mg Q4H PRN PO 01/16/17 21:45 02/15/17 21:44 01/20/17 08:12 650 MG Nitroglycerin (Nitrostat Tab) 0.4 mg UD PRN SL 01/16/17 21:45 02/15/17 21:44 Insulin Aspart (novoLOG ASPART) SLIDING SCALE If C... ACHS SC 01/17/17 06:30 02/16/17 06:29 01/20/17 09:02 13 UNITS Glucose (Glucose 40% Gel) 15-30 GRAMS 15 GRAMS... UD PRN PO 01/16/17 21:45 02/15/17 21:44 Glucose (Glucose Chew Tab) 4-8 Tablets 4 Tabl... UD PRN PO 01/16/17 21:45 02/15/17 21:44 Dextrose (Dextrose 50% 50ML Syringe) 25-50ML OF 50% DW IV FOR... UD PRN IV 01/16/17 21:45 02/15/17 21:44 Glucagon (Glucagon Inj) 1 mg UD PRN SQ 01/16/17 21:45 02/15/17 21:44 Ferrous Sulfate (Feosol Tab) 325 mg BIDM PO 01/17/17 08:00 02/16/17 07:59 01/20/17 08:07 325 MG Pantoprazole Sodium (Protonix Tab) 40 mg DAILY PO 01/17/17 09:00 02/16/17 08:59 01/20/17 09:03 40 MG Ipratropium [place] (Atrovent 0.02% 0.5MG/2.5ML Neb) 0.5 mg Q6R INH 01/16/17 22:00 02/15/17 21:59 01/20/17 14:15 0.5 MG Levalbuterol (Xopenex 1.25MG/ 0.5ML Neb) 1.25 mg Q6R INH 01/16/17 22:00 02/15/17 21:59 01/20/17 14:15 1.25 MG Amiodarone HCl (Cordarone Tab) 200 mg DAILY PO 01/18/17 09:00 02/16/17 08:59 01/20/17 09:03 200 MG Ipratropium [place] (Atrovent 0.02% 0.5MG/2.5ML Neb) 0.5 mg Q2H PRN INH 01/17/17 04:00 02/16/17 03:59 Levalbuterol (Xopenex 1.25MG/ 0.5ML Neb) 1.25 mg Q2H PRN INH 01/17/17 04:00 02/16/17 03:59 Prednisone (PredniSONE TAB) 15 mg DAILY PO 01/18/17 09:00 02/17/17 08:59 01/20/17 09:03 15 MG Warfarin Sodium (Coumadin Tab) 4 mg DAILY@1800 PO 01/18/17 18:00 02/17/17 17:59 01/19/17 18:03 4 MG Ceftaroline Fosamil 600 mg/ Sodium Chloride 270 ml @ 250 mls/hr Q12H IV 01/18/17 13:00 02/01/17 12:59 01/20/17 12:45 250 MLS/HR Diltiazem HCl (Cardizem Tab) 30 mg TID PO 01/19/17 21:00 02/18/17 20:59 01/20/17 09:03 30 MG Miscellaneous Information (Consult Glycemic Management Pharmacy) 1 ea UD N/A 01/19/17 16:43 02/18/17 16:42 Insulin Glargine (Lantus Solostar Pen) SEE PROTOCOL BID SC 01/19/17 21:00 02/18/17 20:59 01/20/17 09:02 20 UNITS
[2017-01-20] MEDS ORDERED: VANCOMYCIN TROUGH SCH (15:30)
[2017-01-20] MEDS: WARFARIN SOD 4 MG TAB PO SCH (17:12)
--- NOTE | 2017-01-20 17:46 | Infectious Disease Progress Nt ---
Progress Note Date of Service Jan 20, 2017. Subjective Pt evaluation today including: conversation w/ patient, physical exam, chart review, lab review, review of studies, conversation w/ eyewear consultant, review of inpatient medication list patient offering no new complaints today. Remains afebrile. No chest pain or shortness of breath. Tolerating antibiotic without apparent difficulty. All Other Systems: Reviewed and Negative Medications Current Inpatient Medications Medications (Trade) Dose Ordered Sig/Lg Route Start Time Stop Time Status Last Admin Dose Admin Acetaminophen (Tylenol Tab) 650 mg Q4H PRN PO 01/16/17 21:45 02/15/17 21:44 01/20/17 08:12 650 MG Nitroglycerin (Nitrostat Tab) 0.4 mg UD PRN SL 01/16/17 21:45 02/15/17 21:44 Insulin Aspart (novoLOG ASPART) SLIDING SCALE If C... ACHS SC 01/17/17 06:30 02/16/17 06:29 01/20/17 17:15 16 UNITS Glucose (Glucose 40% Gel) 15-30 GRAMS 15 GRAMS... UD PRN PO 01/16/17 21:45 02/15/17 21:44 Glucose (Glucose Chew Tab) 4-8 Tablets 4 Tabl... UD PRN PO 01/16/17 21:45 02/15/17 21:44 Dextrose (Dextrose 50% 50ML Syringe) 25-50ML OF 50% DW IV FOR... UD PRN IV 01/16/17 21:45 02/15/17 21:44 Glucagon (Glucagon Inj) 1 mg UD PRN SQ 01/16/17 21:45 02/15/17 21:44 Ferrous Sulfate (Feosol Tab) 325 mg BIDM PO 01/17/17 08:00 02/16/17 07:59 01/20/17 17:12 325 MG Pantoprazole Sodium (Protonix Tab) 40 mg DAILY PO 01/17/17 09:00 02/16/17 08:59 01/20/17 09:03 40 MG Ipratropium [place] (Atrovent 0.02% 0.5MG/2.5ML Neb) 0.5 mg Q6R INH 01/16/17 22:00 02/15/17 21:59 01/20/17 14:15 0.5 MG Levalbuterol (Xopenex 1.25MG/ 0.5ML Neb) 1.25 mg Q6R INH 01/16/17 22:00 02/15/17 21:59 01/20/17 14:15 1.25 MG Amiodarone HCl (Cordarone Tab) 200 mg DAILY PO 01/18/17 09:00 02/16/17 08:59 01/20/17 09:03 200 MG Ipratropium [place] (Atrovent 0.02% 0.5MG/2.5ML Neb) 0.5 mg Q2H PRN INH 01/17/17 04:00 02/16/17 03:59 Levalbuterol (Xopenex 1.25MG/ 0.5ML Neb) 1.25 mg Q2H PRN INH 01/17/17 04:00 02/16/17 03:59 Prednisone (PredniSONE TAB) 15 mg DAILY PO 01/18/17 09:00 02/17/17 08:59 01/20/17 09:03 15 MG Warfarin Sodium (Coumadin Tab) 4 mg DAILY@1800 PO 01/18/17 18:00 02/17/17 17:59 01/20/17 17:12 4 MG Ceftaroline Fosamil 600 mg/ Sodium Chloride 270 ml @ 250 mls/hr Q12H IV 01/18/17 13:00 02/01/17 12:59 01/20/17 12:45 250 MLS/HR Diltiazem HCl (Cardizem Tab) 30 mg TID PO 01/19/17 21:00 02/18/17 20:59 01/20/17 09:03 30 MG Miscellaneous Information (Consult Glycemic Management Pharmacy) 1 ea UD N/A 01/19/17 16:43 02/18/17 16:42 Insulin Glargine (Lantus Solostar Pen) SEE PROTOCOL BID SC 01/19/17 21:00 02/18/17 20:59 01/20/17 09:02 20 UNITS Objective Vital Signs Date Time Temp Pulse Resp B/P (MAP) Pulse Ox O2 Delivery O2 Flow Rate FiO2 01/20/17 16:00 Room Air 01/20/17 15:24 36.7 100 18 95/56 (69) 90 Room Air 01/20/17 14:31 75 125/76 (92) 01/20/17 14:16 81 14 94 Room Air 01/20/17 12:45 Room Air 01/20/17 12:37 82 84/34 (51) 01/20/17 11:09 36.3 91 16 90/40 (57) 91 Room Air 01/20/17 10:24 103 90 01/20/17 08:00 92 Room Air 01/20/17 07:41 36.7 87 20 118/64 (82) 91 Nasal Cannula 2.0 01/20/17 07:06 84 16 97 Nasal Cannula 2.0 01/20/17 06:51 36.4 87 18 118/77 (91) 95 Nasal Cannula 2.0 01/20/17 04:25 36.6 90 18 109/71 (84) 96 Room Air 01/20/17 04:00 Nasal Cannula 2.0 01/20/17 01:56 83 16 98 Nasal Cannula 2.0 01/20/17 00:00 Nasal Cannula 2.0 01/19/17 23:39 36.7 83 18 110/64 (79) 97 Nasal Cannula 2.0 01/19/17 21:07 36.6 80 18 100/65 (77) 95 2.0 01/19/17 20:41 90 16 96 Nasal Cannula 2.0 01/19/17 20:00 95 Nasal Cannula 2.0 Physical Exam General Appearance: WD/WN, no apparent distress Eyes: normal inspection, EOMI, sclerae normal ENT: normal ENT inspection, hearing grossly normal, pharynx normal Neck: supple, no adenopathy, trachea midline Respiratory/Chest: chest non-tender, lungs clear, normal breath sounds, no respiratory distress Cardiovascular: regular rate, rhythm, no gallop, no murmur Abdomen: normal bowel sounds, non tender, soft, no organomegaly Extremities: non-tender, no calf tenderness Neurologic/Psychiatric: alert, oriented x 3 Skin: normal color, no rash Lymphatic: no adenopathy Laboratory Results Last 24 Hours Test 01/19/17 20:47 01/20/17 02:25 01/20/17 07:35 01/20/17 07:36 Bedside Glucose 245 mg/dl 195 mg/dl 173 mg/dl White Blood Count 9.85 K/uL Red Blood Count 3.29 M/uL Hemoglobin 9.1 g/dL Hematocrit 26.6 % Mean Corpuscular Volume 80.9 fL Mean Corpuscular Hemoglobin 27.7 pg Mean Corpuscular Hemoglobin Concent 34.2 g/dl Platelet Count 354 K/uL Mean Platelet Volume 8.3 fL RDW Standard Deviation 48.2 fL RDW Coefficient of Variation 16.3 % Neutrophils % (Manual) 75.9 % Lymphocytes % (Manual) 12.9 % Monocytes % (Manual) 1.7 % Eosinophils % (Manual) 1.7 % Metamyelocytes % 0.9 % Myelocytes % 6.9 % Neutrophils # (Manual) 7.48 K/uL Total Absolute Neutrophils 7.48 K/uL Lymphocytes # (Manual) 1.27 K/uL Total Absolute Lymphocytes 1.27 K/uL Monocytes # (Manual) 0.17 K/uL Eosinophils # (Manual) 0.17 K/uL Metamyelocytes # 0.09 K/uL Myelocytes # 0.68 K/uL Poikilocytosis PRESENT Anisocytosis PRESENT Spherocytes 1+ Ovalocytes 2+ Schistocytes 1+ Prothrombin Time 27.0 SECONDS Prothromb Time International Ratio 2.4 Sodium Level 133 mmol/L Potassium Level 3.6 mmol/L Chloride Level 98 mmol/L Carbon Dioxide Level 28 mmol/L Anion Gap 7.0 mmol/L Blood Urea Nitrogen 18 mg/dl Creatinine 1.20 mg/dl Est Creatinine Clear Calc Drug Dose 60.8 ml/min Estimated GFR () 70.1 Estimated GFR (Non- 60.5 BUN/Creatinine Ratio 14.9 Random Glucose 173 mg/dl Calcium Level 9.0 mg/dl Test 01/20/17 11:42 01/20/17 12:32 01/20/17 12:47 01/20/17 16:19 Bedside Glucose 93 mg/dl 267 mg/dl Erythrocyte Sedimentation Rate 47 mm/hr C-Reactive Protein 5.11 mg/dl Procalcitonin 0.14 ng/ml Lactic Acid Level 2.0 mmol/L Assessment and Plan 71-year-old male with recurrent Staph aureus bacteremia, 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 Patient appears to be responding to ceftaroline. Follow-up blood cultures are no growth to date, would continue on current regimen. Will follow.
--- NOTE | 2017-01-20 20:29 | Medical Consult ---
Consultation Date of Consultation: Jan 20, 2017. Attending Physician: Kendall Espinoza M.D. 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 He is readmitted with bacteremia. He had admission at [facility] [place] in 09/2016 for acute respiratory failure diffuse alveolar hemorrhage and warfarin was held. He had hospitalization with PE and had IVC filter placement, A fib with RVR and MRSA bacteremia which was attributed to left had abscess s/p I and D He initially was on vancomycin, then switched to daptomycin and ceftaroline. He was in Rehab then subsequently discharged home. He was subsequently resumed on warfarin After he completed IV antibiotics he was started on rituxan and prednisone being tapered He states that he developed worsening appetite and productive cough and dyspnea and felt subjective fevers over the past week. He is admitted for MRSA bacteremia He is on ceftaroline IV and is feeling improved and appetite is improving now He denies any abdominal pain or nausea or vomiting He denies any hemoptysis or bloody nasal discharge or any bruising or bleeding symptoms at this time Past Medical/Surgical History PAST MEDICAL HISTORY: diabetes, hypertension, anemia, atrial fibrillation, PE, IVC filter AAA, diabetes type 2, CKD, former smoker, Wegeners granulomatosis, left femoral arterial bypass secondary to aneurysm admission in September with acute respiratory failure with hypoxia and pulmonary alveolar hemorrhage - warfarin was held but subsequently removed, LUE phlebitis , Medical Problems: (1) Atrial fibrillation with RVR Status: Acute (2) Pneumonia Status: Acute (3) Sepsis Status: Acute Family History FH of diabetes denies any FH of blood clots Social History Smoking Status: Former Smoker Alcohol Use: none Drug Use: none Marital Status: Housing Status: lives with family Allergies Coded Allergies: No Known Allergies (Unverified , 01/16/17) Current Inpatient Medications Current Inpatient Medications Medications (Trade) Dose Ordered Sig/Lg Route Start Time Stop Time Status Last Admin Dose Admin Acetaminophen (Tylenol Tab) 650 mg Q4H PRN PO 01/16/17 21:45 02/15/17 21:44 01/20/17 08:12 650 MG Nitroglycerin (Nitrostat Tab) 0.4 mg UD PRN SL 01/16/17 21:45 02/15/17 21:44 Insulin Aspart (novoLOG ASPART) SLIDING SCALE If C... ACHS SC 01/17/17 06:30 02/16/17 06:29 01/20/17 17:15 16 UNITS Glucose (Glucose 40% Gel) 15-30 GRAMS 15 GRAMS... UD PRN PO 01/16/17 21:45 02/15/17 21:44 Glucose (Glucose Chew Tab) 4-8 Tablets 4 Tabl... UD PRN PO 01/16/17 21:45 02/15/17 21:44 Dextrose (Dextrose 50% 50ML Syringe) 25-50ML OF 50% DW IV FOR... UD PRN IV 01/16/17 21:45 02/15/17 21:44 Glucagon (Glucagon Inj) 1 mg UD PRN SQ 01/16/17 21:45 02/15/17 21:44 Ferrous Sulfate (Feosol Tab) 325 mg BIDM PO 01/17/17 08:00 02/16/17 07:59 01/20/17 17:12 325 MG Pantoprazole Sodium (Protonix Tab) 40 mg DAILY PO 01/17/17 09:00 02/16/17 08:59 01/20/17 09:03 40 MG Ipratropium Star (Atrovent 0.02% 0.5MG/2.5ML Neb) 0.5 mg Q6R INH 01/16/17 22:00 02/15/17 21:59 01/20/17 14:15 0.5 MG Levalbuterol (Xopenex 1.25MG/ 0.5ML Neb) 1.25 mg Q6R INH 01/16/17 22:00 02/15/17 21:59 01/20/17 14:15 1.25 MG Amiodarone HCl (Cordarone Tab) 200 mg DAILY PO 01/18/17 09:00 02/16/17 08:59 01/20/17 09:03 200 MG Ipratropium Star (Atrovent 0.02% 0.5MG/2.5ML Neb) 0.5 mg Q2H PRN INH 01/17/17 04:00 02/16/17 03:59 Levalbuterol (Xopenex 1.25MG/ 0.5ML Neb) 1.25 mg Q2H PRN INH 01/17/17 04:00 02/16/17 03:59 Prednisone (PredniSONE TAB) 15 mg DAILY PO 01/18/17 09:00 02/17/17 08:59 01/20/17 09:03 15 MG Warfarin Sodium (Coumadin Tab) 4 mg DAILY@1800 PO 01/18/17 18:00 02/17/17 17:59 01/20/17 17:12 4 MG Ceftaroline Fosamil 600 mg/ Sodium Chloride 270 ml @ 250 mls/hr Q12H IV 01/18/17 13:00 02/01/17 12:59 01/20/17 12:45 250 MLS/HR Diltiazem HCl (Cardizem Tab) 30 mg TID PO 01/19/17 21:00 02/18/17 20:59 01/20/17 09:03 30 MG Miscellaneous Information (Consult Glycemic Management Pharmacy) 1 ea UD N/A 01/19/17 16:43 02/18/17 16:42 Insulin Glargine (Lantus Solostar Pen) SEE PROTOCOL BID SC 01/19/17 21:00 02/18/17 20:59 01/20/17 09:02 20 UNITS Review of Systems Constitutional: + fever, + fatigue, + problem reported (decreased appetite now improved), No weakness Eyes: No worsening of vision, No eye pain ENT: No unusual epistaxis, No nasal symptoms, No sore throat, No trouble swallowing Respiratory: + cough, No sputum, No wheezing, No shortness of breath, No hemoptysis Cardiovascular: No chest pain, No orthopnea, No edema, No palpitations Abdomen: No pain, No nausea, No vomiting, No diarrhea, No constipation, No GI bleeding Musculoskeletal: No swelling, No calf pain Genitourinary - Male: No hematuria, No dysuria Endocrine: + fatigue Hematologic / Lymphatic: No swollen lymph nodes, No night sweats Integumentary: No rash, No itch Physical Exam Date Time Temp Pulse Resp B/P (MAP) Pulse Ox O2 Delivery O2 Flow Rate FiO2 01/20/17 16:00 Room Air 01/20/17 15:24 36.7 100 18 95/56 (69) 90 Room Air 01/20/17 14:31 75 125/76 (92) 01/20/17 14:16 81 14 94 Room Air 01/20/17 12:45 Room Air 01/20/17 12:37 82 84/34 (51) 01/20/17 11:09 36.3 91 16 90/40 (57) 91 Room Air 01/20/17 10:24 103 90 01/20/17 08:00 92 Room Air 01/20/17 07:41 36.7 87 20 118/64 (82) 91 Nasal Cannula 2.0 01/20/17 07:06 84 16 97 Nasal Cannula 2.0 01/20/17 06:51 36.4 87 18 118/77 (91) 95 Nasal Cannula 2.0 01/20/17 04:25 36.6 90 18 109/71 (84) 96 Room Air 01/20/17 04:00 Nasal Cannula 2.0 01/20/17 01:56 83 16 98 Nasal Cannula 2.0 01/20/17 00:00 Nasal Cannula 2.0 01/19/17 23:39 36.7 83 18 110/64 (79) 97 Nasal Cannula 2.0 01/19/17 21:07 36.6 80 18 100/65 (77) 95 2.0 01/19/17 20:41 90 16 96 Nasal Cannula 2.0 01/19/17 20:00 95 Nasal Cannula 2.0 General Appearance: WD/WN, no apparent distress Head: normocephalic, atraumatic Eyes: sclerae normal ENT: pharynx normal Neck: supple, no adenopathy, no JVD Respiratory/Chest: lungs clear, no respiratory distress Cardiovascular: regular rate, rhythm, no edema, no murmur Abdomen/GI: normal bowel sounds, non tender, soft Extremities/Musculoskelatal: no calf tenderness, no pedal edema, non-tender Neurologic/Psych: alert, normal mood/affect, oriented x 3 Laboratory Results Last 24 Hours Test 01/19/17 20:47 01/20/17 02:25 01/20/17 07:35 01/20/17 07:36 Bedside Glucose 245 mg/dl 195 mg/dl 173 mg/dl White Blood Count 9.85 K/uL Red Blood Count 3.29 M/uL Hemoglobin 9.1 g/dL Hematocrit 26.6 % Mean Corpuscular Volume 80.9 fL Mean Corpuscular Hemoglobin 27.7 pg Mean Corpuscular Hemoglobin Concent 34.2 g/dl Platelet Count 354 K/uL Mean Platelet Volume 8.3 fL RDW Standard Deviation 48.2 fL RDW Coefficient of Variation 16.3 % Neutrophils % (Manual) 75.9 % Lymphocytes % (Manual) 12.9 % Monocytes % (Manual) 1.7 % Eosinophils % (Manual) 1.7 % Metamyelocytes % 0.9 % Myelocytes % 6.9 % Neutrophils # (Manual) 7.48 K/uL Total Absolute Neutrophils 7.48 K/uL Lymphocytes # (Manual) 1.27 K/uL Total Absolute Lymphocytes 1.27 K/uL Monocytes # (Manual) 0.17 K/uL Eosinophils # (Manual) 0.17 K/uL Metamyelocytes # 0.09 K/uL Myelocytes # 0.68 K/uL Poikilocytosis PRESENT Anisocytosis PRESENT Spherocytes 1+ Ovalocytes 2+ Schistocytes 1+ Prothrombin Time 27.0 SECONDS Prothromb Time International Ratio 2.4 Sodium Level 133 mmol/L Potassium Level 3.6 mmol/L Chloride Level 98 mmol/L Carbon Dioxide Level 28 mmol/L Anion Gap 7.0 mmol/L Blood Urea Nitrogen 18 mg/dl Creatinine 1.20 mg/dl Est Creatinine Clear Calc Drug Dose 60.8 ml/min Estimated GFR () 70.1 Estimated GFR (Non- 60.5 BUN/Creatinine Ratio 14.9 Random Glucose 173 mg/dl Calcium Level 9.0 mg/dl Test 01/20/17 11:42 01/20/17 12:32 01/20/17 12:47 01/20/17 16:19 Bedside Glucose 93 mg/dl 267 mg/dl Erythrocyte Sedimentation Rate 47 mm/hr C-Reactive Protein 5.11 mg/dl Procalcitonin 0.14 ng/ml Lactic Acid Level 2.0 mmol/L ECHO * "-- Conclusions -- * The left ventricle is normal in size. * There is normal left ventricular wall thickness. * The left ventricular wall motion is normal. * Ejection Fraction = 55-60%. * There is mild mitral regurgitation. * There is mild to moderate tricuspid regurgitation. * There is moderate thickening of all three aortic valve leaflet edges wtihout visulalized vegetation, No prior echo for comparison." * CXR 1. Cardiomegaly with mild pulmonary vascular congestion. 2. Patchy airspace opacities are present at both lung bases. Correlate clinically for evidence of an infectious/inflammatory pneumonitis. Radiographic follow-up to resolution is recommended. Head CT IMPRESSION: 1. There is no hemorrhage, mass effect, or evidence of acute territorial ischemia by CT criteria. 2. Right-sided paranasal sinus disease as above. Correlate clinically for evidence of acute sinusitis. 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 The patient had a temporary IVC filter placed when he was not able to be on warfarin and he states he did not want to have an IVC filter but had agreed to only have it temporarily until he was put back on his warfarin - states that he "has discussed with the doctor that placed it and that had plans to have it removed within 6 months or once he was resumed back on his warfarin. Currently he is on warfarin denies any bleeding symptoms. Would recommend consider CT scan chest to further evaluate CXR findings and consider pulmonary input given his history of pulmonary alveolar hemorrhage and PE. Recommend consultation with Vascular surgery for assessment of his IVC filter and consideration for removal of it if his bacteremia is felt by ID to be from seeding or the source of his bacteremia, since patient is on warfarin. Thank you for allowing us to participate in the care of this patient
[2017-01-21] VITALS (15 sets, daily range): BP systolic 56–117; BP diastolic 38–71; PULSE 70–101; TEMP 36.2–36.5; O2SAT 89–96; Ht 182.9 cm; Wt 78.3 kg
[2017-01-21] MEDS: CEFTAROLINE FOSAMIL INJ 600 MG in SODIUM CHLORIDE 0.9% 250ML 250 ML IV SCH ×2 (01:01→14:13)
[2017-01-21] MEDS: IPRATROPIUM BROMIDE NEB SOLN 0.02% 2.5 ML VIAL INH SCH ×4 (01:59→19:43)
[2017-01-21] MEDS: LEVALBUTEROL 1.25MG/0.5ML NEB INH SCH ×4 (01:59→19:43)
[2017-01-21] MEDS: INSULIN ASPART 100 UNITS/ML 3 ML PEN SC SCH ×5 (07:44→21:24)
[2017-01-21] MEDS ORDERED: D5W AND NSS 1,000 ML IV SCH (08:00)
[2017-01-21 08:09] LABS: HEMATOCRIT 28.7 % (42-52); MEAN CELL VOLUME 80.4 fL (80-100); MEAN CORPUSCULAR HEMOGLOBIN 27.2 pg (25-34); MEAN CORPUSCULAR HGB CONC 33.8 g/dl (32-36); MEAN PLATELET VOLUME 8.6 fL (7.4-10.4); PLATELET COUNT 426 K/uL (130-400); RED BLOOD COUNT 3.57 M/uL (4.7-6.1); WHITE BLOOD COUNT 12.69 K/uL (4.8-10.8)
[2017-01-21 08:16] LABS: INR 2.7 (0.9-1.1); PROTHROMBIN TIME (PATIENT) 30.4 SECONDS (9.0-12.0)
[2017-01-21] MEDS ORDERED: HYDROCORTISONE IV 50 MG in SYRINGE 0 ML IV ONE (08:30)
[2017-01-21 08:40] LABS: CALCIUM 9.3 mg/dl (8.5-10.1); CREATININE 1.1 mg/dl (0.60-1.40); POTASSIUM 3.4 mmol/L (3.5-5.1)
[2017-01-21] MEDS: FERROUS SULFATE 325 MG TAB PO SCH ×2 (08:47→17:40)
[2017-01-21 08:57] LABS: COMPLETE YES; EOSINOPHIL % 1.7 %; LYMPH ABS # 2.09 K/uL (1.2-3.4); LYMPHOCYTE % 16.5 %; META ABS # 0.55 K/uL (0-0); METAMYELOCYTE % 4.3 %; MYELOCYTE % 6.1 %; NEUTROPHILS % 67.1 %; OVALOCYTES 1+; POIKILOCYTOSIS PRESENT; SPHEROCYTE 1+
[2017-01-21] MEDS ORDERED: BENZOCAIN/TETRACA/BUTAM SPRAY 200 APPLN/20 GM SPRY ONE (11:49)
[2017-01-21] MEDS ORDERED: MIDAZOLAM HCL 1 MG/ML 2ML VIAL ONE (11:49)
[2017-01-21] MEDS ORDERED: MEPERIDINE HCL 50 MG/ML CARP ONE (11:49)
[2017-01-21] MEDS ORDERED: CANNULA ONE ×2 (11:49)
[2017-01-21] MEDS: DILTIAZEM HCL 30 MG TAB PO SCH ×3 (12:16→21:25)
--- NOTE | 2017-01-21 13:08 | Pharmacy Progress Note ---
Glycemic: Assessment & Plan Date of Service Jan 21, 2017. Assessment & Plan Outpatient Anti-diabetic Regimen: * Lantus 10 units qpm, Victoza 1.8 mg/0.3 ml daily, Glipizide 20 mg bid * A1c = 8.7 % 01/16/17 ASSESSMENT: * Pt admitted with respiratory failure/MRSA bacteremia - initiated on antibiotics and PO steroids * Pt received basal/bolus regimen secondary to outpatient regimen on hold/stress /infection/steroids * Yesterday I overall tightened the regimen and his BSGs still remained in the 300's into the evening * Patient received 84 units of insulin total in the past 24 hours * This AM, patient NPO for SACHA and given one dose of hydrocortisone 50 mg IV X 1 (stress dose steroid) * Fasting BSG 81 mg/dL so basal insulin held and D5NS @ 100 cc/hr initiated per MD * At this point I do feel his BSGs are going to bounce back up but his previous regimen should be OK * Will need to titrate tomorrow PLAN FOR INPATIENT GLYCEMIC CONTROL: * Continue Lantus 10-20 units BID based on BSG trend * Continue correction factor 20 mg/dl/unit * Continue carb ratio 1 unit per 7 grams CHO consumed * Continue goal range Low 110 mg/dL - High 140 mg/dL * Please note that the plan above was derived based on current level of insulin resistance and hospital stress. These recommendations are appropriate for inpatient admission only. Plan of care upon discharge will need to be reassessed to avoid potential outpatient hypo/hyperglycemia. Thank you.
--- NOTE | 2017-01-21 13:54 | Procedure Note ---
Pre-Mod Sedation Assessment General Date of Moderate Sedation: Jan 21, 2017. Vital Signs: Vital Signs Past 12 Hours Date Time Temp Pulse Resp B/P (MAP) Pulse Ox O2 Delivery O2 Flow Rate FiO2 01/21/17 13:46 81 20 109/49 (69) 90 Room Air 01/21/17 13:35 104 21 93/36 (55) 89 Room Air 01/21/17 13:30 83 23 88/43 (58) 91 Nasal Cannula 2 01/21/17 13:20 90 21 97/40 (59) 91 Nasal Cannula 2 01/21/17 13:14 91 22 93/38 (56) 95 Nasal Cannula 2 01/21/17 13:06 87 21 86/39 (55) 91 Nasal Cannula 2 01/21/17 12:57 85 20 91/41 (58) 94 Nasal Cannula 2 01/21/17 12:55 94 13 87/38 96 Nasal Cannula 2 01/21/17 12:50 96 14 87/45 96 Nasal Cannula 2 01/21/17 12:45 96 13 94/38 94 Nasal Cannula 2 01/21/17 12:40 97 27 105/56 94 Nasal Cannula 2 01/21/17 12:39 Nasal Cannula 2 01/21/17 12:35 101 27 107/45 95 Nasal Cannula 2 01/21/17 12:10 101 16 117/57 92 Room Air 01/21/17 12:06 36.2 100 18 101/63 (76) 90 Room Air 01/21/17 12:00 Room Air 01/21/17 08:00 Nasal Cannula 2.0 01/21/17 07:44 36.4 89 22 109/62 (78) 90 2.0 01/21/17 07:29 81 14 89 Room Air 01/21/17 06:57 2.0 01/21/17 04:00 Room Air 01/21/17 03:46 36.5 70 18 111/65 (80) 95 Room Air Review Cardiovascular: no JVD, + irregularly irregular Abdomen: normal bowel sounds Lungs: + rhonchi Airway Class: II Pre-Sedation Airway Assessment Oral Cavity: Dentures Short Thick Neck: No Hx of Sleep Apnea: No Smoking Status: Former Smoker Procedure Planning Contraindications-for Mod Sed: None Yes Notes The planned sedation has been discussed with the patient and consent obtained. I have identified the patient, determined the appropriateness of sedation and have assessed the patient immediately prior to the procedure. All medicine(s) and interventions are by my order.
--- NOTE | 2017-01-21 14:00 | TEE ---
*NOTICE TO RECEIVING CONSTITUTION PARTY AGENCY This information is strictly Confidential and protected under [place] law. [place] law prohibits you from making any further disclosure of this information unless further disclosure is expressly permitted by the written consent of the person to whom it pertains or is authorized by law. A general authorization for the release of medical or other information is not sufficient for this purpose. Hospital accepts no responsibility if the information is made available to any other person, INCLUDING THE PATIENT. Interpretation Summary * Name: FAVIO BENITO Study Date: 01/21/2017 12:49 PM BP: 107/45 mmHg * Patient Location: [facility]\S\[id number] HR: 101 * : 1945 (M/d/yyyy) Gender: Male * Age: 71 yrs Ethnicity: [place] * Ordering Physician: Kendall Espinoza * Performed By: Gale Morillo RDCS * * Reason For Study: RECURRENT MRSA BACTEREMIA * -- Conclusions -- * The left ventricle is normal in size. * There is mild concentric left ventricular hypertrophy. * The left ventricular wall motion is normal. * Ejection Fraction = 60-65%. 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 * The mitral valve anatomy is normal. * There is no vegetation seen on the mitral valve. * The tricuspid valve anatomy is normal. * There is no tricuspid valve vegetation. * There is no vegetation on the pulmonic valve. * Mild atherosclerotic plaque(s) in the descending aorta. * The interatrial septum is intact with no evidence for an atrial septal defect. Procedure Details * The transesophageal portion of this study was personally supervised by the undersigned interpreting physician. * SACHA Probe #1 utilized for procedure. * The study was performed in Cardiopulmonary Department. * Time out was conducted by the physician, nurse, and audit tech with positive identification of patient and procedure. * Informed consent for Transesophageal Echocardiogram was obtained prior to the procedure. * An intravenous line was placed. A topical anesthetic agent was used for oropharangeal anesthesia. A bite block was inserted. * The patient's vital signs, including blood pressure, heart rate, pulse oximetry and cardiac rhythm were monitored throughout the procedure . * Midazolam 4 mg administered for sedation. * Meperidine 25 mg administered for sedation. * The posterior oropharynx was anesthetized using a topical anesthetic spray. A bite guard was inserted. * A multifrequency, multiplane transesopheageal echocardiographic endoscope was inserted and manipulated in the standard fashion to achieve multiplane views. * The transesophageal probe was passed without difficulty. * The usual views were obtained; basal, mid-esophageal, transgastric and aortic views. * The patient tolerated the procedure well without evidence of orophangeal or esophageal trauma. * A 2D transesophageal echocardiogram with spectral and color flow Doppler was performed. * Contrast injection with agitated saline was performed. * Start time for this exam was 12:35 and end time was 12:55. Left Ventricle * The left ventricle is normal in size. * There is mild concentric left ventricular hypertrophy. * Ejection Fraction = 60-65%. * The left ventricular wall motion is normal. Atria * Borderline left atrial enlargement. * No thrombus is detected in the left atrial appendage. * The interatrial septum is intact with no evidence for an atrial septal defect. * Injection of contrast documented no interatrial shunt. Mitral Valve * The mitral valve anatomy is normal. * There is no vegetation seen on the mitral valve. * There is trace mitral regurgitation. Tricuspid Valve * The tricuspid valve anatomy is normal. * There is no tricuspid valve vegetation. 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 * There is no aortic valvular vegetation. * No hemodynamically significant valvular aortic stenosis. * No aortic regurgitation is present. Pulmonic Valve * The pulmonic valve is not well seen, but is grossly normal. Great Vessels * Mild atherosclerotic plaque(s) in the descending aorta. * Mild atherosclerotic plaque(s) in the aortic arch. Pulmonic Valve * There is no vegetation on the pulmonic valve. Doppler Measurements and Calculations Ao V2 max 111.7 cm/sec Ao max PG 5.0 mmHg Ao V2 mean 73.2 cm/sec Ao mean PG 2.5 mmHg Ao V2 VTI 19.0 cm
[2017-01-21] MEDS: PANTOprazole SOD 40 MG TAB PO SCH (14:19)
[2017-01-21] MEDS: AMIODARONE 200 MG TAB PO SCH (14:19)
[2017-01-21] MEDS ORDERED: INSULIN HUMAN REGULAR PER UNIT 8 UNITS in SYRINGE 7.92 ML IV ONE (17:30)
[2017-01-21] MEDS ORDERED: INSULIN GLARGINE SOLOSTAR 100 UNITS/ML 3 ML PEN SC ONE (17:30)
[2017-01-21] MEDS: WARFARIN SOD 4 MG TAB PO SCH (17:42)
--- NOTE | 2017-01-21 20:28 | Progress Note ---
Medicine Progress Note Date & Time of Visit: Jan 21, 2017 at ~ 16:30 . Subjective SACHA went well today. No fever. Has some chest congestion and occasional cough. No chest pain. No nausea, vomiting, diarrhea. Frustrated and tired of being hospitalized; anxious to go home. . Objective Last 8 Hrs Date Time Temp Pulse Resp B/P (MAP) Pulse Ox O2 Delivery O2 Flow Rate FiO2 01/21/17 19:46 36.5 84 16 95/62 (73) 91 Room Air 01/21/17 19:44 81 18 94 Room Air 01/21/17 16:30 Room Air 01/21/17 16:19 36.3 96 18 102/66 (78) 95 Room Air 01/21/17 14:15 85 18 100/58 (72) 91 01/21/17 13:52 93 20 105/55 (72) 91 Room Air 01/21/17 13:46 81 20 109/49 (69) 90 Room Air 01/21/17 13:35 104 21 93/36 (55) 89 Room Air 01/21/17 13:30 83 23 88/43 (58) 91 Nasal Cannula 2 01/21/17 13:20 90 21 97/40 (59) 91 Nasal Cannula 2 01/21/17 13:14 91 22 93/38 (56) 95 Nasal Cannula 2 01/21/17 13:06 87 21 86/39 (55) 91 Nasal Cannula 2 01/21/17 12:57 85 20 91/41 (58) 94 Nasal Cannula 2 01/21/17 12:55 94 13 87/38 96 Nasal Cannula 2 01/21/17 12:50 96 14 87/45 96 Nasal Cannula 2 01/21/17 12:45 96 13 94/38 94 Nasal Cannula 2 01/21/17 12:40 97 27 105/56 94 Nasal Cannula 2 01/21/17 12:39 Nasal Cannula 2 01/21/17 12:35 101 27 107/45 95 Nasal Cannula 2 Physical Exam: General- no distress Neck- no JVD Lungs- few scattered rhonchi, rales left base Heart- irregular, no murmur appreciated Abdomen- + BS, soft, nontender Extremities- trace pretibial edema, no calf tenderness Neuro- alert . Laboratory Results: Last 24 Hours Test 01/21/17 07:24 01/21/17 07:32 01/21/17 11:32 01/21/17 14:08 Bedside Glucose 91 mg/dl 169 mg/dl 272 mg/dl White Blood Count 12.69 K/uL Red Blood Count 3.57 M/uL Hemoglobin 9.7 g/dL Hematocrit 28.7 % Mean Corpuscular Volume 80.4 fL Mean Corpuscular Hemoglobin 27.2 pg Mean Corpuscular Hemoglobin Concent 33.8 g/dl Platelet Count 426 K/uL Mean Platelet Volume 8.6 fL RDW Standard Deviation 48.4 fL RDW Coefficient of Variation 16.3 % Neutrophils % (Manual) 67.1 % Lymphocytes % (Manual) 16.5 % Monocytes % (Manual) 4.3 % Eosinophils % (Manual) 1.7 % Metamyelocytes % 4.3 % Myelocytes % 6.1 % Neutrophils # (Manual) 8.51 K/uL Total Absolute Neutrophils 8.51 K/uL Lymphocytes # (Manual) 2.09 K/uL Total Absolute Lymphocytes 2.09 K/uL Monocytes # (Manual) 0.55 K/uL Eosinophils # (Manual) 0.22 K/uL Metamyelocytes # 0.55 K/uL Myelocytes # 0.77 K/uL Poikilocytosis PRESENT Spherocytes 1+ Ovalocytes 1+ Prothrombin Time 30.4 SECONDS Prothromb Time International Ratio 2.7 Sodium Level 134 mmol/L Potassium Level 3.4 mmol/L Chloride Level 98 mmol/L Carbon Dioxide Level 28 mmol/L Anion Gap 8.0 mmol/L Blood Urea Nitrogen 18 mg/dl Creatinine 1.10 mg/dl Est Creatinine Clear Calc Drug Dose 66.5 ml/min Estimated GFR () 77.9 Estimated GFR (Non- 67.2 BUN/Creatinine Ratio 16.0 Random Glucose 81 mg/dl Calcium Level 9.3 mg/dl Test 01/21/17 17:06 01/21/17 20:08 Bedside Glucose 418 mg/dl 236 mg/dl Assessment & Plan SEPSIS DUE TO MRSA BACTEREMIA / SUSPECTED PNEUMONIA Met criteria for sepsis per 2001 definition and current CMS criteria- fever, leukocytosis, tachycardia. Underlying immunosuppression due to rituximab + prednisone for GPA. Lactate was 1.09. Initial BP 96/57, improved with IV fluids. Blood cultures obtained and initially received broad spectrum antibiotics with IV levofloxacin and piperacillin / tazobactam. Chest x-ray showed pulmonary infiltrates as discussed below. 2/2 blood cultures day of admission grew MRSA. Prior history of MRSA bacteremia associated with abscess of left hand September 2016. ID consulted. Antibiotic therapy changed to ceftaroline. Repeat blood cultures 01/19 negative thus far. Consider endocarditis- TTE nondiagnostic; SACHA did not show any evidence of valvular vegetation. Consider infected IVC filter as discussed below. Consider other occult nidus of infection. Continue IV ceftaroline (started 01/18, today = day # 4). PULMONARY INFILTRATES / PROBABLE PNEUMONIA Patient presented with fever and cough. Chest x-ray showed bibasilar patchy infiltrates. 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 Current symptoms seem to be most consistent with pneumonia rather than relapsing pulmonary GPA. Cough improved. Oxygenating well on RA. Will need f/u chest x-ray to assure resolution. Further evaluation / consultation as necessary if pulmonary status worsens. HYPOXIA O2 sats as low as 84% on RA. Hypoxia probable secondary to pneumonia. Received supplemental O2. Now oxygenating well on RA. S/P PULMONARY EMBOLISM Developed PE ~ 09/27/16 and admitted to [facility] in [place]. IVC filter placed 09/29/[address] Harris Shipley retrievable MR Conditional device. Transferred to [facility]. Started on IV heparin and transitioned to warfarin. 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 Consider removal of device- timing and facility to be determined. INR today = 2.7. Continue warfarin. 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 Initially managed with plasmapheresis, steroids, cyclophosphamide. Dr. Roa discussed case with Rheumatology. Rituximab held due to MRSA bacteremia. Continue prednisone. CHRONIC ATRIAL FIB Diltiazem started for better rate control. Continue amiodarone. Continue warfarin. HYPERTENSION / HYPOTENSION Diltiazem started for better rate control of AF. Stopped lisinopril. Continue diltiazem with hold parameters. SLEEP APNEA Continue CPAP. DM TYPE 2 Not well-controlled. On prednisone for GPA. Septic at time of admission. Random blood sugar in ED 210. Hgb A1C 8.7. Pharmacy consulted for glycemic management. FBS today = 91. Continue Lantus + NovoLog per protocol. VTE PROPHYLAXIS Continue warfarin. DISPOSITION Expected discharge to home. Internal Medicine follow-up with Dr. Pérez. . Consultants: ID-Dr. Mario Roth-Dr. Efrain Puga Current Inpatient Medications: Current Inpatient Medications Medications (Trade) Dose Ordered Sig/Lg Route Start Time Stop Time Status Last Admin Dose Admin Acetaminophen (Tylenol Tab) 650 mg Q4H PRN PO 01/16/17 21:45 02/15/17 21:44 01/20/17 08:12 650 MG Nitroglycerin (Nitrostat Tab) 0.4 mg UD PRN SL 01/16/17 21:45 02/15/17 21:44 Insulin Aspart (novoLOG ASPART) SLIDING SCALE If C... ACHS SC 01/17/17 06:30 02/16/17 06:29 01/21/17 17:38 18 UNITS Glucose (Glucose 40% Gel) 15-30 GRAMS 15 GRAMS... UD PRN PO 01/16/17 21:45 02/15/17 21:44 Glucose (Glucose Chew Tab) 4-8 Tablets 4 Tabl... UD PRN PO 01/16/17 21:45 02/15/17 21:44 Dextrose (Dextrose 50% 50ML Syringe) 25-50ML OF 50% DW IV FOR... UD PRN IV 01/16/17 21:45 02/15/17 21:44 Glucagon (Glucagon Inj) 1 mg UD PRN SQ 01/16/17 21:45 02/15/17 21:44 Ferrous Sulfate (Feosol Tab) 325 mg BIDM PO 01/17/17 08:00 02/16/17 07:59 01/21/17 17:40 325 MG Pantoprazole Sodium (Protonix Tab) 40 mg DAILY PO 01/17/17 09:00 02/16/17 08:59 01/21/17 14:19 40 MG Ipratropium [place] (Atrovent 0.02% 0.5MG/2.5ML Neb) 0.5 mg Q6R INH 01/16/17 22:00 02/15/17 21:59 01/21/17 19:43 0.5 MG Levalbuterol (Xopenex 1.25MG/ 0.5ML Neb) 1.25 mg Q6R INH 01/16/17 22:00 02/15/17 21:59 01/21/17 19:43 1.25 MG Amiodarone HCl (Cordarone Tab) 200 mg DAILY PO 01/18/17 09:00 02/16/17 08:59 01/21/17 14:19 200 MG Ipratropium [place] (Atrovent 0.02% 0.5MG/2.5ML Neb) 0.5 mg Q2H PRN INH 01/17/17 04:00 02/16/17 03:59 Levalbuterol (Xopenex 1.25MG/ 0.5ML Neb) 1.25 mg Q2H PRN INH 01/17/17 04:00 02/16/17 03:59 Prednisone (PredniSONE TAB) 15 mg DAILY PO 01/18/17 09:00 02/17/17 08:59 01/21/17 14:42 15 MG Warfarin Sodium (Coumadin Tab) 4 mg DAILY@1800 PO 01/18/17 18:00 02/17/17 17:59 01/21/17 17:42 4 MG Ceftaroline Fosamil 600 mg/ Sodium Chloride 270 ml @ 250 mls/hr Q12H IV 01/18/17 13:00 02/01/17 12:59 01/21/17 14:13 250 MLS/HR Diltiazem HCl (Cardizem Tab) 30 mg TID PO 01/19/17 21:00 02/18/17 20:59 01/21/17 16:08 30 MG Miscellaneous Information (Consult Glycemic Management Pharmacy) 1 ea UD N/A 01/19/17 16:43 02/18/17 16:42 Insulin Glargine (Lantus Solostar Pen) SEE PROTOCOL BID SC 01/21/17 21:00 02/20/17 20:59 Future hold Insulin Aspart (novoLOG ASPART) SLIDING SCALE If C... TODAY@0200 ONCE SC 01/22/17 02:00 01/22/17 02:01
[2017-01-22] VITALS (9 sets, daily range): BP systolic 113–125; BP diastolic 63–74; PULSE 76–98; TEMP 36.5–36.6; O2SAT 90–93
[2017-01-22] MEDS: CEFTAROLINE FOSAMIL INJ 600 MG in SODIUM CHLORIDE 0.9% 250ML 250 ML IV SCH ×2 (01:23→14:45)
[2017-01-22] MEDS ORDERED: INSULIN ASPART 100 UNITS/ML 3 ML PEN SC ONE (02:00)
[2017-01-22] MEDS: LEVALBUTEROL 1.25MG/0.5ML NEB INH SCH ×4 (02:36→19:15)
[2017-01-22] MEDS: IPRATROPIUM BROMIDE NEB SOLN 0.02% 2.5 ML VIAL INH SCH ×4 (02:36→19:15)
[2017-01-22] MEDS: AMIODARONE 200 MG TAB PO SCH (08:53)
[2017-01-22] MEDS: FERROUS SULFATE 325 MG TAB PO SCH ×2 (08:54→17:35)
[2017-01-22] MEDS: DILTIAZEM HCL 30 MG TAB PO SCH ×3 (08:54→21:26)
[2017-01-22] MEDS: PANTOprazole SOD 40 MG TAB PO SCH (08:55)
[2017-01-22] MEDS: INSULIN ASPART 100 UNITS/ML 3 ML PEN SC SCH ×4 (08:57→21:22)
[2017-01-22] MEDS: INSULIN GLARGINE SOLOSTAR 100 UNITS/ML 3 ML PEN SC SCH ×2 (08:58→21:23)
[2017-01-22 09:28] LABS: INR 3.3 (0.9-1.1); PROTHROMBIN TIME (PATIENT) 36.7 SECONDS (9.0-12.0)
[2017-01-22 10:00] LABS: BUN/CREATININE RATIO 16.5 (10-20); CALCIUM 8.5 mg/dl (8.5-10.1); CREATININE 1.25 mg/dl (0.60-1.40); POTASSIUM 3.7 mmol/L (3.5-5.1)
[2017-01-22 10:19] LABS: HEMATOCRIT 25.7 % (42-52); MEAN CELL VOLUME 80.3 fL (80-100); MEAN CORPUSCULAR HEMOGLOBIN 26.6 pg (25-34); MEAN CORPUSCULAR HGB CONC 33.1 g/dl (32-36); MEAN PLATELET VOLUME 8.7 fL (7.4-10.4); PLATELET COUNT 368 K/uL (130-400)
[2017-01-22 11:02] LABS: ANISOCYTOSIS PRESENT; COMPLETE YES; ECHINOCYTES 1+; LYMPH ABS # 1.19 K/uL (1.2-3.4); LYMPHOCYTE % 10.5 %; METAMYELOCYTE % 1.8 %; MICROCYTOSIS PRESENT; MYELOCYTE % 4.4 %; POIKILOCYTOSIS PRESENT; SPHEROCYTE 1+
--- NOTE | 2017-01-22 13:43 | Pharmacy Progress Note ---
Glycemic: Assessment & Plan Date of Service Jan 22, 2017. Assessment & Plan Outpatient Anti-diabetic Regimen: * Lantus 10 units qpm, Victoza 1.8 mg/0.3 ml daily, Glipizide 20 mg bid * A1c = 8.7 % 01/16/17 ASSESSMENT: * Pt admitted with respiratory failure/MRSA bacteremia - initiated on antibiotics and PO steroids * Pt received basal/bolus regimen secondary to outpatient regimen on hold/stress /infection/steroids * Over the past 24 hours, BSGs have ranged 81-418 mg/dL * After hydrocortisone 50 mg IV X 1 bolus yesterday morning, BSGs climbed into the 400's that evening * Lantus 30 units X 1 given at dinner, plus IV bolus, plus tightened Novolog * BSGs today are surprisingly very stable: 137, 138 * I will continue Lantus per scale as BSGs may start to trend down and continue Novolog as is PLAN FOR INPATIENT GLYCEMIC CONTROL: * Continue Lantus 0-20 units BID based on BSG trend * Continue correction factor 20 mg/dl/unit * Continue carb ratio 1 unit per 6 grams CHO consumed * Continue goal range Low 110 mg/dL - High 140 mg/dL * Please note that the plan above was derived based on current level of insulin resistance and hospital stress. These recommendations are appropriate for inpatient admission only. Plan of care upon discharge will need to be reassessed to avoid potential outpatient hypo/hyperglycemia. Thank you.
--- NOTE | 2017-01-22 14:03 | DIAGNOSTIC IMAGING REPORT ---
CHEST 2 VIEWS ROUTINE CLINICAL HISTORY: 71 years-old Male presenting with PICC placement + f/u pneumonia. TECHNIQUE: PA and lateral views of the chest were obtained. COMPARISON: 01/16/2017. FINDINGS: Left upper extremity PICC terminates in the mid SVC. Atherosclerosis of aortic arch. Cardiac silhouette normal in size. Minimal patchy reticular opacities at the lung bases suggested similar to prior exam. No new focal infiltrate. Trace bilateral pleural effusions. No pneumothorax. Degenerative changes of the thoracic spine. Upper abdomen normal. IMPRESSION: 1. Trace pleural effusions new from prior. 2. Minimal patchy reticular opacities at the lung bases, possibly atelectasis or residual consolidation given the clinical history of prior pneumonia. 3. Appropriately positioned PICC. Electronically signed by: Raza Wong M.D. 01/22/2017 2:02 PM Dictated Date/Time: 01/22/2017 2:00 PM
[2017-01-22] MEDS ORDERED: NURSING VERBAL MED ORDER ONE (16:30)
--- NOTE | 2017-01-22 19:07 | Progress Note ---
Medicine Progress Note Date & Time of Visit: Jan 22, 2017 at 16:30 . Subjective No fever. Occasional cough; no dyspnea. No chest pain. No nausea, vomiting, diarrhea. Voiding without difficulty. PICC line placed without incident. . Objective Last 8 Hrs Date Time Temp Pulse Resp B/P (MAP) Pulse Ox O2 Delivery O2 Flow Rate FiO2 01/22/17 16:00 Room Air 01/22/17 14:11 76 18 90 Room Air 01/22/17 12:43 36.5 90 18 113/63 (80) 92 Room Air 01/22/17 12:00 Room Air Physical Exam: General- no distress Neck- no JVD Lungs- few basilar rales Heart- irregular, no murmur appreciated Abdomen- + BS, soft, nontender Extremities- PICC LUE; trace pretibial edema, no calf tenderness Neuro- alert . Laboratory Results: Last 24 Hours Test 01/21/17 20:08 01/22/17 02:01 01/22/17 07:08 01/22/17 09:02 Bedside Glucose 236 mg/dl 289 mg/dl 137 mg/dl White Blood Count 11.30 K/uL Red Blood Count 3.20 M/uL Hemoglobin 8.5 g/dL Hematocrit 25.7 % Mean Corpuscular Volume 80.3 fL Mean Corpuscular Hemoglobin 26.6 pg Mean Corpuscular Hemoglobin Concent 33.1 g/dl Platelet Count 368 K/uL Mean Platelet Volume 8.7 fL RDW Standard Deviation 48.6 fL RDW Coefficient of Variation 16.6 % Neutrophils % (Manual) 78.0 % Lymphocytes % (Manual) 10.5 % Monocytes % (Manual) 5.3 % Metamyelocytes % 1.8 % Myelocytes % 4.4 % Neutrophils # (Manual) 8.81 K/uL Total Absolute Neutrophils 8.81 K/uL Lymphocytes # (Manual) 1.19 K/uL Total Absolute Lymphocytes 1.19 K/uL Monocytes # (Manual) 0.60 K/uL Metamyelocytes # 0.20 K/uL Myelocytes # 0.50 K/uL Poikilocytosis PRESENT Anisocytosis PRESENT Microcytosis PRESENT Spherocytes 1+ Echinocytes 1+ Prothrombin Time 36.7 SECONDS Prothromb Time International Ratio 3.3 Sodium Level 133 mmol/L Potassium Level 3.7 mmol/L Chloride Level 99 mmol/L Carbon Dioxide Level 26 mmol/L Anion Gap 8.0 mmol/L Blood Urea Nitrogen 21 mg/dl Creatinine 1.25 mg/dl Est Creatinine Clear Calc Drug Dose 58.6 ml/min Estimated GFR () 66.7 Estimated GFR (Non- 57.6 BUN/Creatinine Ratio 16.5 Random Glucose 243 mg/dl Calcium Level 8.5 mg/dl Test 01/22/17 11:33 01/22/17 16:50 Bedside Glucose 138 mg/dl 248 mg/dl Assessment & Plan SEPSIS DUE TO MRSA BACTEREMIA / SUSPECTED PNEUMONIA Met criteria for sepsis per 2001 definition and current [facility] criteria- fever, leukocytosis, tachycardia. Underlying immunosuppression due to rituximab + prednisone for GPA. Lactate was 1.09. Initial BP 96/57, improved with IV fluids. Blood cultures obtained and initially received broad spectrum antibiotics with IV levofloxacin and piperacillin / tazobactam. Chest x-ray showed pulmonary infiltrates as discussed below. / blood cultures day of admission grew MRSA. Prior history of MRSA bacteremia associated with abscess of left hand September 2016. ID consulted. Antibiotic therapy changed to ceftaroline. Repeat blood cultures 01/19 + 01/20 negative thus far. Consider endocarditis- TTE nondiagnostic; SACHA did not show any evidence of valvular vegetation. Consider infected IVC filter as discussed below. Consider other occult nidus of infection. Continue IV ceftaroline (started 01/18, today = day # 5). PICC line placed for outpatient IV antibiotic therapy. PULMONARY INFILTRATES / PROBABLE PNEUMONIA Patient presented with fever and cough. Chest x-ray showed bibasilar patchy infiltrates. 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 Current symptoms seem to be most consistent with pneumonia rather than relapsing pulmonary GPA. Cough improved. Oxygenating well on RA. Will need f/u chest x-ray to assure resolution. HYPOXIA O2 sats as low as 84% on RA. Hypoxia probable secondary to pneumonia. Received supplemental O2. Now oxygenating well on RA. S/P PULMONARY EMBOLISM Developed PE ~ 09/27/16 and admitted to [facility] in [place]. IVC filter placed 09/29/[address] Harris Shipley retrievable MR Conditional device. Transferred to [facility]. Started on IV heparin and transitioned to warfarin. 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 Consider removal of device- timing and facility to be determined. INR today = 2.3. Hold/titrate warfarin. 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 Initially managed with plasmapheresis, steroids, cyclophosphamide. Dr. Roa discussed case with Rheumatology. Rituximab held due to MRSA bacteremia. Continue prednisone. CHRONIC ATRIAL FIB Diltiazem started for better rate control. Continue amiodarone. Continue warfarin. HYPERTENSION / HYPOTENSION Diltiazem started for better rate control of AF. Stopped lisinopril. Continue diltiazem with hold parameters. SLEEP APNEA Continue CPAP. DM TYPE 2 Not well-controlled. On prednisone for GPA. Septic at time of admission. Random blood sugar in ED 210. Hgb A1C 8.7. Pharmacy consulted for glycemic management. FBS today = 137. Continue Lantus + NovoLog per protocol. VTE PROPHYLAXIS Continue warfarin. DISPOSITION Expected discharge to home. Internal Medicine follow-up with Dr. Pérez. . Consultants: ID-Dr. Mario Roth-Dr. Efrain Puga Current Inpatient Medications: Current Inpatient Medications Medications (Trade) Dose Ordered Sig/Lg Route Start Time Stop Time Status Last Admin Dose Admin Acetaminophen (Tylenol Tab) 650 mg Q4H PRN PO 01/16/17 21:45 02/15/17 21:44 01/20/17 08:12 650 MG Nitroglycerin (Nitrostat Tab) 0.4 mg UD PRN SL 01/16/17 21:45 02/15/17 21:44 Insulin Aspart (novoLOG ASPART) SLIDING SCALE If C... ACHS SC 01/17/17 06:30 02/16/17 06:29 01/22/17 17:35 15 UNITS Glucose (Glucose 40% Gel) 15-30 GRAMS 15 GRAMS... UD PRN PO 01/16/17 21:45 02/15/17 21:44 Glucose (Glucose Chew Tab) 4-8 Tablets 4 Tabl... UD PRN PO 01/16/17 21:45 02/15/17 21:44 Dextrose (Dextrose 50% 50ML Syringe) 25-50ML OF 50% DW IV FOR... UD PRN IV 01/16/17 21:45 02/15/17 21:44 Glucagon (Glucagon Inj) 1 mg UD PRN SQ 01/16/17 21:45 02/15/17 21:44 Ferrous Sulfate (Feosol Tab) 325 mg BIDM PO 01/17/17 08:00 02/16/17 07:59 01/22/17 17:35 325 MG Pantoprazole Sodium (Protonix Tab) 40 mg DAILY PO 01/17/17 09:00 02/16/17 08:59 01/22/17 08:55 40 MG Ipratropium [place] (Atrovent 0.02% 0.5MG/2.5ML Neb) 0.5 mg Q6R INH 01/16/17 22:00 02/15/17 21:59 01/22/17 14:09 0.5 MG Levalbuterol (Xopenex 1.25MG/ 0.5ML Neb) 1.25 mg Q6R INH 01/16/17 22:00 02/15/17 21:59 01/22/17 14:09 1.25 MG Amiodarone HCl (Cordarone Tab) 200 mg DAILY PO 01/18/17 09:00 02/16/17 08:59 01/22/17 08:53 200 MG Ipratropium [place] (Atrovent 0.02% 0.5MG/2.5ML Neb) 0.5 mg Q2H PRN INH 01/17/17 04:00 02/16/17 03:59 Levalbuterol (Xopenex 1.25MG/ 0.5ML Neb) 1.25 mg Q2H PRN INH 01/17/17 04:00 02/16/17 03:59 Prednisone (PredniSONE TAB) 15 mg DAILY PO 01/18/17 09:00 02/17/17 08:59 01/22/17 08:55 15 MG Warfarin Sodium (Coumadin Tab) 4 mg DAILY@1800 PO 01/18/17 18:00 02/17/17 17:59 Future Hold 01/21/17 17:42 4 MG Ceftaroline Fosamil 600 mg/ Sodium Chloride 270 ml @ 250 mls/hr Q12H IV 01/18/17 13:00 02/01/17 12:59 01/22/17 14:45 250 MLS/HR Diltiazem HCl (Cardizem Tab) 30 mg TID PO 01/19/17 21:00 02/18/17 20:59 01/22/17 14:45 30 MG Miscellaneous Information (Consult Glycemic Management Pharmacy) 1 ea UD N/A 01/19/17 16:43 02/18/17 16:42 Insulin Glargine (Lantus Solostar Pen) SEE PROTOCOL BID SC 01/21/17 21:00 02/20/17 20:59 Future hold 01/22/17 08:58 15 UNITS Heparin Sodium (Porcine) (Heparin 10 Unit/ ml 5 ml Flush) 5 ml PRN PRN FLUSH 01/22/17 16:30 02/21/17 16:29
[2017-01-23] VITALS (13 sets, daily range): BP systolic 94–133; BP diastolic 36–72; PULSE 72–89; TEMP 36.4–36.8; O2SAT 92–96
[2017-01-23] MEDS: CEFTAROLINE FOSAMIL INJ 600 MG in SODIUM CHLORIDE 0.9% 250ML 250 ML IV SCH ×2 (00:36→13:10)
[2017-01-23] MEDS: LEVALBUTEROL 1.25MG/0.5ML NEB INH SCH ×4 (01:38→19:19)
[2017-01-23] MEDS: IPRATROPIUM BROMIDE NEB SOLN 0.02% 2.5 ML VIAL INH SCH ×4 (01:38→19:19)
[2017-01-23 06:14] LABS: HEMATOCRIT 25.4 % (42-52); MEAN CELL VOLUME 81.7 fL (80-100); MEAN CORPUSCULAR HEMOGLOBIN 27.3 pg (25-34); MEAN CORPUSCULAR HGB CONC 33.5 g/dl (32-36); MEAN PLATELET VOLUME 8.7 fL (7.4-10.4); PLATELET COUNT 395 K/uL (130-400); RED BLOOD COUNT 3.11 M/uL (4.7-6.1)
[2017-01-23 06:44] LABS: INR 2.8 (0.9-1.1); PROTHROMBIN TIME (PATIENT) 31.7 SECONDS (9.0-12.0)
[2017-01-23 06:47] LABS: BASO ABS # 0.09 K/uL (0-0.2); BASOPHIL % 0.9 % (0-2); COMPLETE YES; LYMPH ABS # 1.45 K/uL (1.2-3.4); LYMPHOCYTE % 14.2 %; META ABS # 0.36 K/uL (0-0); METAMYELOCYTE % 3.5 %; MYELOCYTE % 4.4 %; NEUTROPHILS % 73.5 %; OVALOCYTES 2+; SPHEROCYTE OCCASIONAL
[2017-01-23] MEDS ORDERED: NovoLIN-N (NPH) PER UNIT CHARGE SQ ONE (08:30)
[2017-01-23] MEDS: AMIODARONE 200 MG TAB PO SCH (08:36)
[2017-01-23] MEDS: FERROUS SULFATE 325 MG TAB PO SCH ×2 (08:37→17:25)
[2017-01-23] MEDS: PANTOprazole SOD 40 MG TAB PO SCH (08:37)
[2017-01-23] MEDS: DILTIAZEM HCL 30 MG TAB PO SCH ×4 (08:37→13:58)
[2017-01-23] MEDS: INSULIN ASPART 100 UNITS/ML 3 ML PEN SC SCH ×4 (08:39→21:14)
--- NOTE | 2017-01-23 08:45 | Pharmacy Progress Note ---
Glycemic: Assessment & Plan Date of Service Jan 23, 2017. Assessment & Plan Outpatient Anti-diabetic Regimen: * Lantus 10 units qpm, Victoza 1.8 mg/0.3 ml daily, Glipizide 20 mg bidm * A1c = 8.7 % 01/16/17 ASSESSMENT: * Pt admitted with respiratory failure/MRSA bacteremia - initiated on antibiotics and PO steroids * Pt received basal/bolus regimen secondary to outpatient regimen on hold/stress /infection/steroids * Over the past 24 hours, BSGs have ranged 137-328mg/dL * Patient remains very sensitive to Prednisone PO despite aggressive insulin regimen * PICC line placed yesterday so I believe we are getting close to discharge * Normally his blood sugars are great for breakfast and lunch, and peak when oral prednisone peaks through the evening * To combat this, I will try a .3 unit/kg dose of NPH this AM as this will peak hopefully at the same time as the prednisone * Change Lantus to HS only, but increase home dose by 5 units based on outpatient A1c >8% PLAN FOR INPATIENT GLYCEMIC CONTROL: * Change to Lantus 15 units QPM * Add NPH 32 units X 1 this AM with oral Prednisone 15 mg * Continue correction factor 20 mg/dl/unit * Continue carb ratio 1 unit per 6 grams CHO consumed * Continue goal range Low 110 mg/dL - High 140 mg/dL Looking ahead to discharge: * Consider increasing Lantus based on A1c * If discharged on oral prednisone - consider NPH taper with prednisone taper * Please call pharmacy to discuss recommendations if needed * Please note that the plan above was derived based on current level of insulin resistance and hospital stress. These recommendations are appropriate for inpatient admission only. Plan of care upon discharge will need to be reassessed to avoid potential outpatient hypo/hyperglycemia. Thank you.
[2017-01-23] MEDS ORDERED: POLYETHYLENE (MIRALAX) 17 GM PACK PO ONE (09:06)
[2017-01-23] MEDS ORDERED: POLYETHYLENE (MIRALAX) 17 GM PACK PO PRN (09:15)
[2017-01-23] MEDS: WARFARIN SOD 3 MG TAB PO SCH (16:01)
[2017-01-23 17:08] LABS: CALCIUM 8.2 mg/dl (8.5-10.1); CREATININE 1.33 mg/dl (0.60-1.40); POTASSIUM 4.1 mmol/L (3.5-5.1)
--- NOTE | 2017-01-23 17:29 | Progress Note ---
Medicine Progress Note Date & Time of Visit: Jan 23, 2017 at 11:10 . Subjective Slept well last night. No fever. Occasional nonproductive cough. No shortness of breath. No chest pain. No nausea or vomiting. Constipation relieved by MiraLAX. Ambulating in hallway. . Objective Last 8 Hrs Date Time Temp Pulse Resp B/P (MAP) Pulse Ox O2 Delivery O2 Flow Rate FiO2 01/23/17 16:02 94/44 (61) 01/23/17 16:00 93 Room Air 01/23/17 15:02 36.6 89 20 97/36 (56) 93 Room Air 01/23/17 14:27 76 13 92 Room Air 01/23/17 14:03 95/50 (65) 01/23/17 12:00 Room Air Physical Exam: General- no distress Neck- no JVD Lungs- few basilar rales Heart- irregular Abdomen- + BS, soft, nontender Extremities- PICC LUE; trace pretibial edema, no calf tenderness Neuro- alert . Laboratory Results: Last 24 Hours Test 01/22/17 20:26 01/22/17 20:29 01/23/17 05:26 01/23/17 07:06 Bedside Glucose 328 mg/dl 327 mg/dl 135 mg/dl White Blood Count 10.20 K/uL Red Blood Count 3.11 M/uL Hemoglobin 8.5 g/dL Hematocrit 25.4 % Mean Corpuscular Volume 81.7 fL Mean Corpuscular Hemoglobin 27.3 pg Mean Corpuscular Hemoglobin Concent 33.5 g/dl Platelet Count 395 K/uL Mean Platelet Volume 8.7 fL RDW Standard Deviation 50.3 fL RDW Coefficient of Variation 16.8 % Neutrophils % (Manual) 73.5 % Lymphocytes % (Manual) 14.2 % Monocytes % (Manual) 3.5 % Basophils % (Manual) 0.9 % Metamyelocytes % 3.5 % Myelocytes % 4.4 % Neutrophils # (Manual) 7.50 K/uL Total Absolute Neutrophils 7.50 K/uL Lymphocytes # (Manual) 1.45 K/uL Total Absolute Lymphocytes 1.45 K/uL Monocytes # (Manual) 0.36 K/uL Basophils # (Manual) 0.09 K/uL Metamyelocytes # 0.36 K/uL Myelocytes # 0.45 K/uL Spherocytes OCCASIONAL Ovalocytes 2+ Prothrombin Time 31.7 SECONDS Prothromb Time International Ratio 2.8 Test 01/23/17 16:36 01/23/17 16:56 Sodium Level 135 mmol/L Potassium Level 4.1 mmol/L Chloride Level 99 mmol/L Carbon Dioxide Level 28 mmol/L Anion Gap 9.0 mmol/L Blood Urea Nitrogen 23 mg/dl Creatinine 1.33 mg/dl Est Creatinine Clear Calc Drug Dose 55.9 ml/min Estimated GFR () 61.9 Estimated GFR (Non- 53.4 BUN/Creatinine Ratio 17.0 Random Glucose 151 mg/dl Calcium Level 8.2 mg/dl Bedside Glucose 170 mg/dl Assessment & Plan SEPSIS DUE TO MRSA BACTEREMIA / SUSPECTED PNEUMONIA Met criteria for sepsis per 2001 definition and current CMS criteria- fever, leukocytosis, tachycardia. Underlying immunosuppression due to rituximab + prednisone for GPA. Lactate was 1.09. Initial BP 96/57, improved with IV fluids. Blood cultures obtained and initially received broad spectrum antibiotics with IV levofloxacin and piperacillin / tazobactam. Chest x-ray showed pulmonary infiltrates as discussed below. / blood cultures day of admission grew MRSA. Prior history of MRSA bacteremia associated with abscess of left hand September 2016. ID consulted. Antibiotic therapy changed to ceftaroline. Repeat blood cultures 01/19 + 01/20 negative thus far. Consider endocarditis- TTE nondiagnostic; SACHA did not show any evidence of valvular vegetation. Consider infected IVC filter as discussed below. Consider other occult nidus of infection. Continue IV ceftaroline (started 01/18, today = day # 6). PICC line placed for outpatient IV antibiotic therapy. Coordinate discharge plans with ID. PULMONARY INFILTRATES / PROBABLE PNEUMONIA Patient presented with fever and cough. Chest x-ray showed bibasilar patchy infiltrates. 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 Current symptoms seem to be most consistent with pneumonia rather than relapsing pulmonary GPA. Cough improved. Oxygenating well on RA. Will need f/u chest x-ray to assure resolution. HYPOXIA O2 sats as low as 84% on RA. Hypoxia probable secondary to pneumonia. Received supplemental O2. Now oxygenating well on RA. S/P PULMONARY EMBOLISM Developed PE ~ 09/27/16 and admitted to [facility] in [place]. IVC filter placed 09/29/[address] Harris Shipley retrievable MR Conditional device. Transferred to [facility]. Started on IV heparin and transitioned to warfarin. 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 Consider removal of device- timing and facility to be determined. INR today = 2.8. Continue warfarin. 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 Initially managed with plasmapheresis, steroids, cyclophosphamide. Dr. Roa discussed case with Rheumatology. Rituximab held due to MRSA bacteremia. Continue prednisone. CHRONIC ATRIAL FIB Diltiazem started for better rate control, but blood pressures intermittently low. Continue amiodarone. Continue warfarin. HYPERTENSION / HYPOTENSION History of hypertension, treated with lisinopril in the past. Lisinopril was discontinued prior to this admission because of low blood pressures. It was restarted during this hospital stay, and then discontinued when diltiazem was added. Blood pressures intermittently low. Stop diltiazem. Follow and titrate therapy. SLEEP APNEA Continue CPAP. DM TYPE 2 Not well-controlled. On prednisone for GPA. Septic at time of admission. Random blood sugar in ED 210. Hgb A1C 8.7. Pharmacy consulted for glycemic management. FBS today = 135. Continue Lantus + NovoLog per protocol. VTE PROPHYLAXIS Continue warfarin. DISPOSITION Expected discharge to home with outpatient IV antibiotic therapy. Internal Medicine follow-up with Dr. Pérez. . Consultants: ID-Dr. Mario Roth-Dr. Efrani Puga Current Inpatient Medications: Current Inpatient Medications Medications (Trade) Dose Ordered Sig/Lg Route Start Time Stop Time Status Last Admin Dose Admin Acetaminophen (Tylenol Tab) 650 mg Q4H PRN PO 01/16/17 21:45 02/15/17 21:44 01/20/17 08:12 650 MG Nitroglycerin (Nitrostat Tab) 0.4 mg UD PRN SL 01/16/17 21:45 02/15/17 21:44 Insulin Aspart (novoLOG ASPART) SLIDING SCALE If C... ACHS SC 01/17/17 06:30 02/16/17 06:29 01/23/17 12:12 12 UNITS Glucose (Glucose 40% Gel) 15-30 GRAMS 15 GRAMS... UD PRN PO 01/16/17 21:45 02/15/17 21:44 Glucose (Glucose Chew Tab) 4-8 Tablets 4 Tabl... UD PRN PO 01/16/17 21:45 02/15/17 21:44 Dextrose (Dextrose 50% 50ML Syringe) 25-50ML OF 50% DW IV FOR... UD PRN IV 01/16/17 21:45 02/15/17 21:44 Glucagon (Glucagon Inj) 1 mg UD PRN SQ 01/16/17 21:45 02/15/17 21:44 Ferrous Sulfate (Feosol Tab) 325 mg BIDM PO 01/17/17 08:00 02/16/17 07:59 01/23/17 08:37 325 MG Pantoprazole Sodium (Protonix Tab) 40 mg DAILY PO 01/17/17 09:00 02/16/17 08:59 01/23/17 08:37 40 MG Ipratropium [place] (Atrovent 0.02% 0.5MG/2.5ML Neb) 0.5 mg Q6R INH 01/16/17 22:00 02/15/17 21:59 01/23/17 14:26 0.5 MG Levalbuterol (Xopenex 1.25MG/ 0.5ML Neb) 1.25 mg Q6R INH 01/16/17 22:00 02/15/17 21:59 01/23/17 14:26 1.25 MG Amiodarone HCl (Cordarone Tab) 200 mg DAILY PO 01/18/17 09:00 02/16/17 08:59 01/23/17 08:36 200 MG Ipratropium [place] (Atrovent 0.02% 0.5MG/2.5ML Neb) 0.5 mg Q2H PRN INH 01/17/17 04:00 02/16/17 03:59 Levalbuterol (Xopenex 1.25MG/ 0.5ML Neb) 1.25 mg Q2H PRN INH 01/17/17 04:00 02/16/17 03:59 Prednisone (PredniSONE TAB) 15 mg DAILY PO 01/18/17 09:00 02/17/17 08:59 01/23/17 08:37 15 MG Ceftaroline Fosamil 600 mg/ Sodium Chloride 270 ml @ 250 mls/hr Q12H IV 01/18/17 13:00 02/01/17 12:59 01/23/17 13:10 250 MLS/HR Miscellaneous Information (Consult Glycemic Management Pharmacy) 1 ea UD N/A 01/19/17 16:43 02/18/17 16:42 Heparin Sodium (Porcine) (Heparin 10 Unit/ ml 5 ml Flush) 5 ml PRN PRN FLUSH 01/22/17 16:30 02/21/17 16:29 01/23/17 13:55 5 ML Warfarin Sodium (Coumadin Tab) 3 mg DAILY@16 PO 01/23/17 16:00 02/22/17 15:59 01/23/17 16:01 3 MG Insulin Glargine (Lantus Solostar Pen) 15 units QPM SC 01/23/17 21:00 02/22/17 20:59 Polyethylene (Miralax Powder Packet) 17 gm BID PRN PO 01/23/17 09:15 02/22/17 09:14 Sodium Chloride 500 ml @ 250 mls/hr Q2H IV 01/23/17 17:30 01/23/17 19:29 UNV
[2017-01-23] MEDS ORDERED: SODIUM CHLORIDE 0.9% 500ML 500 ML IV SCH (17:30)
[2017-01-23] MEDS ORDERED: INSULIN GLARGINE SOLOSTAR 100 UNITS/ML 3 ML PEN SC SCH ×2 (21:00)
[2017-01-24] VITALS (7 sets, daily range): BP systolic 94–138; BP diastolic 53–79; PULSE 71–103; TEMP 36.4–36.6; O2SAT 93–95
[2017-01-24] MEDS: CEFTAROLINE FOSAMIL INJ 600 MG in SODIUM CHLORIDE 0.9% 250ML 250 ML IV SCH (00:59)
[2017-01-24] MEDS: IPRATROPIUM BROMIDE NEB SOLN 0.02% 2.5 ML VIAL INH SCH ×3 (01:55→14:13)
[2017-01-24] MEDS: LEVALBUTEROL 1.25MG/0.5ML NEB INH SCH ×3 (01:55→14:13)
[2017-01-24] MEDS: ACETAMINOPHEN 325 MG TAB PO PRN (05:32)
[2017-01-24 07:43] LABS: HEMATOCRIT 26.5 % (42-52); MEAN CELL VOLUME 80.8 fL (80-100); MEAN CORPUSCULAR HEMOGLOBIN 26.8 pg (25-34); MEAN CORPUSCULAR HGB CONC 33.2 g/dl (32-36); MEAN PLATELET VOLUME 8.2 fL (7.4-10.4); PLATELET COUNT 359 K/uL (130-400); RED BLOOD COUNT 3.28 M/uL (4.7-6.1); WHITE BLOOD COUNT 11.38 K/uL (4.8-10.8)
[2017-01-24 07:56] LABS: INR 2.3 (0.9-1.1); PROTHROMBIN TIME (PATIENT) 25.3 SECONDS (9.0-12.0)
[2017-01-24] MEDS ORDERED: NovoLIN-N (NPH) PER UNIT CHARGE SQ ONE (08:00)
[2017-01-24 08:13] LABS: BUN/CREATININE RATIO 18.7 (10-20); C-REACTIVE PROTEIN 1.37 mg/dl (0-0.29); CALCIUM 8.5 mg/dl (8.5-10.1); CREATININE 1.11 mg/dl (0.60-1.40); POTASSIUM 3.3 mmol/L (3.5-5.1)
[2017-01-24] MEDS ORDERED: VANCOMYCIN CONSULT ACTIVE PRN (08:30)
[2017-01-24] MEDS ORDERED: VANCOMYCIN INJ 2,000 MG in SODIUM CHLORIDE 0.9% 500ML 500 ML IV SCH (08:45)
[2017-01-24] MEDS: INSULIN ASPART 100 UNITS/ML 3 ML PEN SC SCH ×4 (09:30→20:49)
[2017-01-24] MEDS: AMIODARONE 200 MG TAB PO SCH (09:31)
[2017-01-24] MEDS: FERROUS SULFATE 325 MG TAB PO SCH ×2 (09:31→16:36)
[2017-01-24] MEDS: PANTOprazole SOD 40 MG TAB PO SCH (09:31)
[2017-01-24] MEDS ORDERED: POTASSIUM CHLORIDE 20 MEQ TABCR PO ONE (12:45)
--- NOTE | 2017-01-24 14:20 | Pharmacy Progress Note ---
Glycemic: Assessment & Plan Date of Service Jan 24, 2017. Assessment & Plan Outpatient Anti-diabetic Regimen: * Lantus 10 units qpm, Victoza 1.8 mg/0.3 ml daily, Glipizide 20 mg bidm * A1c = 8.7 % 01/16/17 ASSESSMENT: * Pt admitted with respiratory failure/MRSA bacteremia - initiated on antibiotics and PO steroids * Pt received basal/bolus regimen secondary to outpatient regimen on hold/stress /infection/steroids * Over the past 24 hours, BSGs have ranged 91-170mg/dL * Patient remains very sensitive to Prednisone PO despite aggressive insulin regimen * Normally his blood sugars are great for breakfast and lunch, and peak when oral prednisone peaks through the evening * To combat this, I have dosed NPH X 1 and BSGs responded very well * I do think the NPH dose was aggressive and could be scaled back * Fasting BSG <100 mg/dL so cut back on Lantus tonight to home dosing PLAN FOR INPATIENT GLYCEMIC CONTROL: * Change to Lantus 10 units QPM * Re-dose NPH 16 units X 1 this AM with oral Prednisone 15 mg * Continue correction factor 20 mg/dl/unit * Continue carb ratio 1 unit per 7 grams CHO consumed * Continue goal range Low 110 mg/dL - High 140 mg/dL Looking ahead to discharge: * Consider increasing Lantus based on A1c * If discharged on oral prednisone - consider NPH taper with prednisone taper * Please call pharmacy to discuss recommendations if needed * Please note that the plan above was derived based on current level of insulin resistance and hospital stress. These recommendations are appropriate for inpatient admission only. Plan of care upon discharge will need to be reassessed to avoid potential outpatient hypo/hyperglycemia. Thank you.
--- NOTE | 2017-01-24 14:30 | Pharmacy Progress Note ---
Pharmacy Abx Initial Consult Date of Service Jan 24, 2017. Pharmacy Dosing Scope Date of Consult: 01/24/17 Consultation requested by: Dr. Espinoza Pharmacy is consulted to initiate Vancomycin dosing therapy, order appropriate labs and adjust drug dose/frequency. Subjective The patient is a 71 year old male admitted on Jan 16, 2017 at 20:24 with possible MRSA Bacteremia who over the course of stay was started on Ceftaroline by Dr. Oro. Today as he is prepared for discharge; Dr. Espinoza wants to change him to Vancomycin to be given either at discharge destination or in home IV therapy. Objective Height (Feet): 6 Height (Inches): 0 Weight (Kilograms): 78.300 Vital Signs (Past 12Hrs) Vital Signs Past 12 Hours Date Time Temp Pulse Resp B/P (MAP) Pulse Ox O2 Delivery O2 Flow Rate FiO2 01/24/17 14:13 74 14 95 Room Air 01/24/17 08:00 93 Room Air 01/24/17 07:30 36.6 83 18 125/75 (92) 93 01/24/17 07:07 71 14 93 Room Air Lab Results (24Hrs) Laboratory Tests (24 Hours) Test 01/24/17 07:26 C-Reactive Protein 1.37 mg/dl (0-0.29) H Erythrocyte Sedimentation Rate 37 mm/hr (0-14) H White Blood Count 11.38 K/uL (4.8-10.8) H Micro Results Date/Time Source Procedure Growth Status 01/20/17 12:32 Blood Blood Culture - Preliminary NO GROWTH TO DATE. Resulted 01/19/17 07:39 Blood Blood Culture - Final NO GROWTH Complete 01/19/17 07:17 Blood Blood Culture - Final NO GROWTH Complete 01/16/17 18:40 Blood Blood Culture - Final Staphylococcus Aureus Complete 01/16/17 17:25 Blood Blood Culture - Final Staphylococcus Aureus Complete 01/17/17 08:45 Sputum Expectorated Sputum Gram Stain - Final Complete 01/17/17 08:45 Sputum Expectorated Sputum Sputum Culture - Final LIGHT NORMAL ZARA. Complete 01/16/17 22:17 Urine,Catheterized Urine Culture - Final NO GROWTH - LESS THAN 1,000 COLONIES/ML Complete Risk Factors for Resistance * Current hospitalization > 5 days Assessment & Plan Assessment 71 year old male with MRSA Bacteremia being started on Vancomycin in preparation for discharge and extended antibiotic therapy. Plan Vancomycin for treatment of MRSA Bacteremia Vancomycin IV * Loading dose: 2000mg ( 25mg/kg) * Maintenance dose: 1000 mg IV (13 mg/kg) every 12 hours * Goal trough level: 15 to 20 mcg/mL * Trough level ordered prior to 1000 dose on 01/26/17 Pharmacy will continue to follow and will adjust dose/frequency as necessary. Thank you.
[2017-01-24] MEDS ORDERED: SODIUM CHLORIDE 0.9% 1000ML 1,000 ML IV SCH (16:15)
[2017-01-24] MEDS: WARFARIN SOD 3 MG TAB PO SCH (16:35)
--- NOTE | 2017-01-24 20:23 | Progress Note ---
Medicine Progress Note Date & Time of Visit: Jan 24, 2017 at 14:50 . Subjective No fever. Occasional cough. No SOB. No chest pain. No nausea, vomiting, diarrhea. . Objective Last 8 Hrs Date Time Temp Pulse Resp B/P (MAP) Pulse Ox O2 Delivery O2 Flow Rate FiO2 01/24/17 19:49 36.4 91 20 112/66 (81) 93 Room Air 98 108/59 (75) 103 94/53 (67) 01/24/17 16:00 Room Air 01/24/17 15:22 36.5 89 18 127/71 (89) 93 Room Air 01/24/17 14:13 74 14 95 Room Air Physical Exam: General- no distress Neck- no JVD Lungs- few basilar rales Heart- irregular Abdomen- + BS, soft, nontender Extremities- trace pretibial edema, no calf tenderness Neuro- alert . Laboratory Results: Last 24 Hours Test 01/23/17 20:28 01/24/17 07:14 01/24/17 07:26 01/24/17 11:32 Bedside Glucose 91 mg/dl 78 mg/dl 140 mg/dl White Blood Count 11.38 K/uL Red Blood Count 3.28 M/uL Hemoglobin 8.8 g/dL Hematocrit 26.5 % Mean Corpuscular Volume 80.8 fL Mean Corpuscular Hemoglobin 26.8 pg Mean Corpuscular Hemoglobin Concent 33.2 g/dl RDW Standard Deviation 50.4 fL RDW Coefficient of Variation 17.0 % Platelet Count 359 K/uL Mean Platelet Volume 8.2 fL Erythrocyte Sedimentation Rate 37 mm/hr Prothrombin Time 25.3 SECONDS Prothromb Time International Ratio 2.3 Sodium Level 137 mmol/L Potassium Level 3.3 mmol/L Chloride Level 99 mmol/L Carbon Dioxide Level 29 mmol/L Anion Gap 8.0 mmol/L Blood Urea Nitrogen 21 mg/dl Creatinine 1.11 mg/dl Est Creatinine Clear Calc Drug Dose 67.0 ml/min Estimated GFR () 77.0 Estimated GFR (Non- 66.5 BUN/Creatinine Ratio 18.7 Random Glucose 80 mg/dl Calcium Level 8.5 mg/dl C-Reactive Protein 1.37 mg/dl Test 01/24/17 16:41 Bedside Glucose 177 mg/dl Assessment & Plan SEPSIS DUE TO MRSA BACTEREMIA / SUSPECTED PNEUMONIA Met criteria for sepsis per 2001 definition and current CMS criteria- fever, leukocytosis, tachycardia. Underlying immunosuppression due to rituximab + prednisone for GPA. Lactate was 1.09. Initial BP 96/57, improved with IV fluids. Blood cultures obtained and initially received broad spectrum antibiotics with IV levofloxacin and piperacillin / tazobactam. Chest x-ray showed pulmonary infiltrates as discussed below. / blood cultures day of admission grew MRSA. Prior history of MRSA bacteremia associated with abscess of left hand September 2016. ID consulted. Antibiotic therapy changed to ceftaroline. Repeat blood cultures 01/19 + 01/20 negative thus far. Consider endocarditis- TTE nondiagnostic; SACHA did not show any evidence of valvular vegetation. Consider infected IVC filter as discussed below. Consider other occult nidus of infection. Received IV ceftaroline x 7 days. ESR 47--> 37. C-reactive protein 5.11-->1.37 PICC line placed for outpatient IV antibiotic therapy. Transition to IV vancomycin for outpatient therapy with anticipated course of therapy of 6 weeks. PULMONARY INFILTRATES / PROBABLE PNEUMONIA Patient presented with fever and cough. Chest x-ray showed bibasilar patchy infiltrates. 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 Current symptoms seem to be most consistent with pneumonia rather than relapsing pulmonary GPA. Cough improved. Oxygenating well on RA. Will need f/u chest x-ray to assure resolution. HYPOXIA O2 sats as low as 84% on RA. Hypoxia probable secondary to pneumonia. Received supplemental O2. Now oxygenating well on RA. S/P PULMONARY EMBOLISM Developed PE ~ 09/27/16 and admitted to [facility] in [place]. IVC filter placed 09/29/[address] Harris Shipley retrievable MR Conditional device. Transferred to [facility]. Started on IV heparin and transitioned to warfarin. 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 Consider removal of device- timing and facility to be determined. INR today = 2.3. Continue warfarin. 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 Initially managed with plasmapheresis, steroids, cyclophosphamide. Dr. Roa discussed case with Rheumatology. Rituximab held due to MRSA bacteremia. Continue prednisone. CHRONIC ATRIAL FIB Diltiazem started for better rate control, but blood pressures intermittently low. Continue amiodarone. Continue warfarin. HYPERTENSION / HYPOTENSION History of hypertension, treated with lisinopril in the past. Lisinopril was discontinued prior to this admission because of low blood pressures. It was restarted during this hospital stay, and then discontinued when diltiazem was added. Blood pressures intermittently low. Stopped diltiazem. Follow and titrate therapy. SLEEP APNEA Continue CPAP. DM TYPE 2 Not well-controlled. On prednisone for GPA. Septic at time of admission. Random blood sugar in ED 210. Hgb A1C 8.7. Pharmacy consulted for glycemic management. FBS today = 78. Continue Lantus + NovoLog per protocol. VTE PROPHYLAXIS Continue warfarin. DISPOSITION Expected discharge to home with outpatient IV antibiotic therapy. Internal Medicine follow-up with Dr. Pérez. . Consultants: ID-Dr. Mario Roth-Dr. Efrain Puga Current Inpatient Medications: Current Inpatient Medications Medications (Trade) Dose Ordered Sig/Lg Route Start Time Stop Time Status Last Admin Dose Admin Acetaminophen (Tylenol Tab) 650 mg Q4H PRN PO 01/16/17 21:45 02/15/17 21:44 01/24/17 05:32 650 MG Nitroglycerin (Nitrostat Tab) 0.4 mg UD PRN SL 01/16/17 21:45 02/15/17 21:44 Insulin Aspart (novoLOG ASPART) SLIDING SCALE If C... ACHS SC 01/17/17 06:30 02/16/17 06:29 01/24/17 17:41 10 UNITS Glucose (Glucose 40% Gel) 15-30 GRAMS 15 GRAMS... UD PRN PO 01/16/17 21:45 02/15/17 21:44 Glucose (Glucose Chew Tab) 4-8 Tablets 4 Tabl... UD PRN PO 01/16/17 21:45 02/15/17 21:44 Dextrose (Dextrose 50% 50ML Syringe) 25-50ML OF 50% DW IV FOR... UD PRN IV 01/16/17 21:45 02/15/17 21:44 Glucagon (Glucagon Inj) 1 mg UD PRN SQ 01/16/17 21:45 02/15/17 21:44 Ferrous Sulfate (Feosol Tab) 325 mg BIDM PO 01/17/17 08:00 02/16/17 07:59 01/24/17 16:36 325 MG Pantoprazole Sodium (Protonix Tab) 40 mg DAILY PO 01/17/17 09:00 02/16/17 08:59 01/24/17 09:31 40 MG Amiodarone HCl (Cordarone Tab) 200 mg DAILY PO 01/18/17 09:00 02/16/17 08:59 01/24/17 09:31 200 MG Ipratropium [place] (Atrovent 0.02% 0.5MG/2.5ML Neb) 0.5 mg Q2H PRN INH 01/17/17 04:00 02/16/17 03:59 Levalbuterol (Xopenex 1.25MG/ 0.5ML Neb) 1.25 mg Q2H PRN INH 01/17/17 04:00 02/16/17 03:59 Prednisone (PredniSONE TAB) 15 mg DAILY PO 01/18/17 09:00 02/17/17 08:59 01/24/17 09:27 15 MG Miscellaneous Information (Consult Glycemic Management Pharmacy) 1 ea UD N/A 01/19/17 16:43 02/18/17 16:42 Heparin Sodium (Porcine) (Heparin 10 Unit/ ml 5 ml Flush) 5 ml PRN PRN FLUSH 01/22/17 16:30 02/21/17 16:29 01/24/17 12:40 5 ML Warfarin Sodium (Coumadin Tab) 3 mg DAILY@16 PO 01/23/17 16:00 02/22/17 15:59 01/24/17 16:35 3 MG Polyethylene (Miralax Powder Packet) 17 gm BID PRN PO 01/23/17 09:15 02/22/17 09:14 Insulin Glargine (Lantus Solostar Pen) 10 units QPM SC 01/24/17 21:00 02/23/17 20:59 Vancomycin HCl (Consult) 1 ea UD PRN N/A 01/24/17 08:30 02/23/17 08:29 Vancomycin HCl 1000 mg/Sodium Chloride 270 ml @ 125 mls/hr Q12H IV 01/24/17 22:00 02/07/17 21:59 Sodium Chloride 1,000 ml @ 150 mls/hr Q6H40M IV 01/24/17 16:15 01/24/17 22:54 01/24/17 13:55 150 MLS/HR
[2017-01-24] MEDS: VANCOMYCIN INJ 1,000 MG in SODIUM CHLORIDE 0.9% 250ML 250 ML IV SCH (21:52)
[2017-01-24] MEDS: INSULIN GLARGINE SOLOSTAR 100 UNITS/ML 3 ML PEN SC SCH (21:53)
[2017-01-25] MEDS: BENZONATATE 100MG CAP PO PRN ×3 (00:10→15:52)
--- NOTE | 2017-01-25 05:01 | Infectious Disease Progress Nt ---
Progress Note Date of Service Jan 24, 2017. Subjective Pt evaluation today including: conversation w/ patient, physical exam, chart review, lab review, review of studies, conversation w/ library consultant, review of inpatient medication list Patient offers no new complaints today. Remains afebrile. No increase in cough or shortness of breath. Follow-up blood cultures remain negative. All Other Systems: Reviewed and Negative Medications Current Inpatient Medications Medications (Trade) Dose Ordered Sig/Lg Route Start Time Stop Time Status Last Admin Dose Admin Acetaminophen (Tylenol Tab) 650 mg Q4H PRN PO 01/16/17 21:45 02/15/17 21:44 01/24/17 05:32 650 MG Nitroglycerin (Nitrostat Tab) 0.4 mg UD PRN SL 01/16/17 21:45 02/15/17 21:44 Insulin Aspart (novoLOG ASPART) SLIDING SCALE If C... ACHS SC 01/17/17 06:30 02/16/17 06:29 01/24/17 17:41 10 UNITS Glucose (Glucose 40% Gel) 15-30 GRAMS 15 GRAMS... UD PRN PO 01/16/17 21:45 02/15/17 21:44 Glucose (Glucose Chew Tab) 4-8 Tablets 4 Tabl... UD PRN PO 01/16/17 21:45 02/15/17 21:44 Dextrose (Dextrose 50% 50ML Syringe) 25-50ML OF 50% DW IV FOR... UD PRN IV 01/16/17 21:45 02/15/17 21:44 Glucagon (Glucagon Inj) 1 mg UD PRN SQ 01/16/17 21:45 02/15/17 21:44 Ferrous Sulfate (Feosol Tab) 325 mg BIDM PO 01/17/17 08:00 02/16/17 07:59 01/24/17 16:36 325 MG Pantoprazole Sodium (Protonix Tab) 40 mg DAILY PO 01/17/17 09:00 02/16/17 08:59 01/24/17 09:31 40 MG Amiodarone HCl (Cordarone Tab) 200 mg DAILY PO 01/18/17 09:00 02/16/17 08:59 01/24/17 09:31 200 MG Ipratropium [place] (Atrovent 0.02% 0.5MG/2.5ML Neb) 0.5 mg Q2H PRN INH 01/17/17 04:00 02/16/17 03:59 Levalbuterol (Xopenex 1.25MG/ 0.5ML Neb) 1.25 mg Q2H PRN INH 01/17/17 04:00 02/16/17 03:59 Prednisone (PredniSONE TAB) 15 mg DAILY PO 01/18/17 09:00 02/17/17 08:59 01/24/17 09:27 15 MG Miscellaneous Information (Consult Glycemic Management Pharmacy) 1 [facility] N/A 01/19/17 16:43 02/18/17 16:42 Heparin Sodium (Porcine) (Heparin 10 Unit/ ml 5 ml Flush) 5 ml PRN PRN FLUSH 01/22/17 16:30 02/21/17 16:29 01/24/17 12:40 5 ML Warfarin Sodium (Coumadin Tab) 3 mg DAILY@16 PO 01/23/17 16:00 02/22/17 15:59 01/24/17 16:35 3 MG Polyethylene (Miralax Powder Packet) 17 gm BID PRN PO 01/23/17 09:15 02/22/17 09:14 Insulin Glargine (Lantus Solostar Pen) 10 units QPM SC 01/24/17 21:00 02/23/17 20:59 01/24/17 21:53 10 UNITS Vancomycin HCl (Consult) 1 [facility] PRN N/A 01/24/17 08:30 02/23/17 08:29 Vancomycin HCl 1000 mg/Sodium Chloride 270 ml @ 125 mls/hr Q12H IV 01/24/17 22:00 02/07/17 21:59 01/24/17 21:52 125 MLS/HR Benzonatate (Tessalon Perles Cap) 100 mg Q8 PRN PO 01/24/17 23:45 02/23/17 23:44 01/25/17 00:10 100 MG Objective Vital Signs Date Time Temp Pulse Resp B/P (MAP) Pulse Ox O2 Delivery O2 Flow Rate FiO2 01/25/17 00:00 Room Air 01/24/17 23:45 36.4 89 19 138/79 (98) 94 Room Air 01/24/17 20:00 Room Air 01/24/17 19:49 36.4 91 20 112/66 (81) 93 Room Air 98 108/59 (75) 103 94/53 (67) 01/24/17 16:00 Room Air 01/24/17 15:22 36.5 89 18 127/71 (89) 93 Room Air 01/24/17 14:13 74 14 95 Room Air 01/24/17 08:00 93 Room Air 01/24/17 07:30 36.6 83 18 125/75 (92) 93 01/24/17 07:07 71 14 93 Room Air Physical Exam General Appearance: WD/WN, no apparent distress Eyes: normal inspection, EOMI, sclerae normal ENT: normal ENT inspection, pharynx normal Neck: supple, no adenopathy, trachea midline Respiratory/Chest: chest non-tender, lungs clear, normal breath sounds, no respiratory distress Cardiovascular: regular rate, rhythm, no gallop, no murmur Abdomen: normal bowel sounds, non tender, soft, no organomegaly Extremities: non-tender, no calf tenderness Neurologic/Psychiatric: alert, oriented x 3 Skin: normal color, warm/dry, no rash Lymphatic: no adenopathy Laboratory Results Last 24 Hours Test 01/24/17 07:14 01/24/17 07:26 01/24/17 11:32 01/24/17 16:41 Bedside Glucose 78 mg/dl 140 mg/dl 177 mg/dl White Blood Count 11.38 K/uL Red Blood Count 3.28 M/uL Hemoglobin 8.8 g/dL Hematocrit 26.5 % Mean Corpuscular Volume 80.8 fL Mean Corpuscular Hemoglobin 26.8 pg Mean Corpuscular Hemoglobin Concent 33.2 g/dl RDW Standard Deviation 50.4 fL RDW Coefficient of Variation 17.0 % Platelet Count 359 K/uL Mean Platelet Volume 8.2 fL Erythrocyte Sedimentation Rate 37 mm/hr Prothrombin Time 25.3 SECONDS Prothromb Time International Ratio 2.3 Sodium Level 137 mmol/L Potassium Level 3.3 mmol/L Chloride Level 99 mmol/L Carbon Dioxide Level 29 mmol/L Anion Gap 8.0 mmol/L Blood Urea Nitrogen 21 mg/dl Creatinine 1.11 mg/dl Est Creatinine Clear Calc Drug Dose 67.0 ml/min Estimated GFR () 77.0 Estimated GFR (Non- 66.5 BUN/Creatinine Ratio 18.7 Random Glucose 80 mg/dl Calcium Level 8.5 mg/dl C-Reactive Protein 1.37 mg/dl Test 01/24/17 20:37 01/25/17 04:44 Bedside Glucose 138 mg/dl Assessment and Plan 71-year-old male with recurrent Staph aureus bacteremia, 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 Patient appears to be responding to antibiotics. Follow-up blood cultures are no growth to date. Will require prolonged i.e. 6 weeks Rx,may need to treat with vancomycin to allow outpatient Rx. Discussed with Dr. Espinoza. Will follow.
[2017-01-25 07:39] VITALS: BP 130/74; PULSE 91; TEMP 36.7; O2SAT 91
[2017-01-25] MEDS: FERROUS SULFATE 325 MG TAB PO SCH ×2 (07:59→18:00)
[2017-01-25] MEDS: INSULIN ASPART 100 UNITS/ML 3 ML PEN SC SCH ×4 (08:22→21:02)
[2017-01-25] MEDS: PANTOprazole SOD 40 MG TAB PO SCH (08:25)
[2017-01-25] MEDS: AMIODARONE 200 MG TAB PO SCH (08:26)
[2017-01-25] MEDS ORDERED: NovoLIN-N (NPH) PER UNIT CHARGE SQ ONE (09:00)
[2017-01-25] MEDS: VANCOMYCIN INJ 1,000 MG in SODIUM CHLORIDE 0.9% 250ML 250 ML IV SCH ×2 (09:40→22:16)
[2017-01-25 09:44] LABS: INR 1.9 (0.9-1.1); PROTHROMBIN TIME (PATIENT) 20.5 SECONDS (9.0-12.0)
[2017-01-25 10:02] LABS: BUN/CREATININE RATIO 16.5 (10-20); CALCIUM 8.3 mg/dl (8.5-10.1); CREATININE 1.06 mg/dl (0.60-1.40); POTASSIUM 3.5 mmol/L (3.5-5.1)
--- NOTE | 2017-01-25 10:12 | Pharmacy Progress Note ---
Glycemic: Assessment & Plan Date of Service Jan 25, 2017. Assessment & Plan The patient is currently receiving 45 units of insulin per day. BSGs ranging 138 - 177 mg/dl over the past 24hrs. BSG was 238 on PRP this AM but this was most likely a postprandial BSG. * Basal insulin: Lantus 10 units every 24 hours + NPH 16 units in the AM w/ prednisone * Correctional Insulin: Novolog Correction per scale ACHS Goal Range: Low 110 mg/dL - High 140 mg/dL Correction Factor: 20 mg/dL/unit * Prandial insulin: Per carb ratio of 1 unit per 7 grams CHO consumed Looking ahead to discharge: * Consider increasing Lantus based on A1c - may consider 15 units qPM * If discharged on oral prednisone - consider NPH taper with prednisone taper * Please call pharmacy to discuss recommendations if needed
[2017-01-25] MEDS ORDERED: WARFARIN SOD 5 MG TAB PO ONE (10:30)
[2017-01-25] MEDS: ACETAMINOPHEN 325 MG TAB PO PRN (10:59)
[2017-01-25 11:33] VITALS: BP_SYST 105; BP_SYST 84; BP_DIAS 54; BP_DIAS 64; PULSE 101; TEMP 36.4; O2SAT 92
[2017-01-25] MEDS ORDERED: SODIUM CHLORIDE 0.9% 1000ML 1,000 ML IV SCH (11:45)
[2017-01-25 15:25] VITALS: BP 125/71; PULSE 84; TEMP 36.7; O2SAT 94
[2017-01-25 16:00] VITALS: O2SAT 94
[2017-01-25 16:27] VITALS: BP 126/70; PULSE 85
--- NOTE | 2017-01-25 20:06 | Progress Note ---
Medicine Progress Note Date & Time of Visit: Jan 25, 2017 at 19:25 . Subjective Anxious to go home. Case Management working on discharge plans, [facility]. Sleeping soundly when I rounded this evening. . Objective Last 8 Hrs Date Time Temp Pulse Resp B/P (MAP) Pulse Ox O2 Delivery O2 Flow Rate FiO2 01/25/17 16:27 85 126/70 (88) 01/25/17 15:25 36.7 84 18 125/71 (89) 94 Physical Exam: General- Neck- Lungs- Heart- Abdomen- Extremities- Neuro- . Laboratory Results: Last 24 Hours Test 01/24/17 20:37 01/25/17 07:31 01/25/17 09:17 01/25/17 10:56 Bedside Glucose 138 mg/dl 127 mg/dl 143 mg/dl Prothrombin Time 20.5 SECONDS Prothromb Time International Ratio 1.9 Sodium Level 134 mmol/L Potassium Level 3.5 mmol/L Chloride Level 100 mmol/L Carbon Dioxide Level 23 mmol/L Anion Gap 11.0 mmol/L Blood Urea Nitrogen 17 mg/dl Creatinine 1.06 mg/dl Est Creatinine Clear Calc Drug Dose 70.2 ml/min Estimated GFR () 81.4 Estimated GFR (Non- 70.3 BUN/Creatinine Ratio 16.5 Random Glucose 238 mg/dl Calcium Level 8.3 mg/dl Test 01/25/17 16:35 Bedside Glucose 145 mg/dl Assessment & Plan SEPSIS DUE TO MRSA BACTEREMIA / SUSPECTED PNEUMONIA Met criteria for sepsis per 2001 definition and current CMS criteria- fever, leukocytosis, tachycardia. Underlying immunosuppression due to rituximab + prednisone for GPA. Lactate was 1.09. Initial BP 96/57, improved with IV fluids. Blood cultures obtained and initially received broad spectrum antibiotics with IV levofloxacin and piperacillin / tazobactam. Chest x-ray showed pulmonary infiltrates as discussed below. /2 blood cultures day of admission grew MRSA. Prior history of MRSA bacteremia associated with abscess of left hand September 2016. ID consulted. Antibiotic therapy changed to ceftaroline. Repeat blood cultures 01/19 + 01/20 negative thus far. Consider endocarditis- TTE nondiagnostic; SACHA did not show any evidence of valvular vegetation. Consider infected IVC filter as discussed below. Consider other occult nidus of infection. Received IV ceftaroline x 7 days. ESR 47--> 37. C-reactive protein 5.11-->1.37 PICC line placed for outpatient IV antibiotic therapy. Transition to IV vancomycin for outpatient therapy with anticipated course of therapy of 6 weeks. PULMONARY INFILTRATES / PROBABLE PNEUMONIA Patient presented with fever and cough. Chest x-ray showed bibasilar patchy infiltrates. 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 Current symptoms seem to be most consistent with pneumonia rather than relapsing pulmonary GPA. Cough improved. Oxygenating well on RA. Will need f/u chest x-ray to assure resolution. HYPOXIA O2 sats as low as 84% on RA. Hypoxia probable secondary to pneumonia. Received supplemental O2. Now oxygenating well on RA. S/P PULMONARY EMBOLISM Developed PE ~ 09/27/16 and admitted to [facility] in [place]. IVC filter placed 09/29/[address] Harris Shipley retrievable MR Conditional device. Transferred to [facility]. Started on IV heparin and transitioned to warfarin. 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 Consider removal of device- timing and facility to be determined. INR today = 1.9. Titrate warfarin. 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 Initially managed with plasmapheresis, steroids, cyclophosphamide. Dr. Roa discussed case with Rheumatology. Rituximab held due to MRSA bacteremia. Continue prednisone. CHRONIC ATRIAL FIB Diltiazem started for better rate control, but blood pressures intermittently low. Continue amiodarone. Continue warfarin. HYPERTENSION / HYPOTENSION History of hypertension, treated with lisinopril in the past. Lisinopril was discontinued prior to this admission because of low blood pressures. It was restarted during this hospital stay, and then discontinued when diltiazem was added. Blood pressures intermittently low. Stopped diltiazem. Follow and titrate therapy. SLEEP APNEA Continue CPAP. DM TYPE 2 Not well-controlled. On prednisone for GPA. Septic at time of admission. Random blood sugar in ED 210. Hgb A1C 8.7. Pharmacy consulted for glycemic management. FBS today = 127. Continue Lantus + NovoLog per protocol. VTE PROPHYLAXIS Continue warfarin. DISPOSITION Expected discharge to home with outpatient IV antibiotic therapy. Case Management assisting with DC planning. Internal Medicine follow-up with Dr. Pérez. given update by phone this morning. Explained that logistics for outpatient antibiotic [facility]. . Consultants: ID-Dr. Mario Roth-Dr. fErain Puga Current Inpatient Medications: Current Inpatient Medications Medications (Trade) Dose Ordered Sig/Lg Route Start Time Stop Time Status Last Admin Dose Admin Acetaminophen (Tylenol Tab) 650 mg Q4H PRN PO 01/16/17 21:45 02/15/17 21:44 01/25/17 10:59 650 MG Nitroglycerin (Nitrostat Tab) 0.4 mg UD PRN SL 01/16/17 21:45 02/15/17 21:44 Insulin Aspart (novoLOG ASPART) SLIDING SCALE If C... ACHS SC 01/17/17 06:30 02/16/17 06:29 01/25/17 18:02 11 UNITS Glucose (Glucose 40% Gel) 15-30 GRAMS 15 GRAMS... UD PRN PO 01/16/17 21:45 02/15/17 21:44 Glucose (Glucose Chew Tab) 4-8 Tablets 4 Tabl... UD PRN PO 01/16/17 21:45 02/15/17 21:44 Dextrose (Dextrose 50% 50ML Syringe) 25-50ML OF 50% DW IV FOR... UD PRN IV 01/16/17 21:45 02/15/17 21:44 Glucagon (Glucagon Inj) 1 mg UD PRN SQ 01/16/17 21:45 02/15/17 21:44 Ferrous Sulfate (Feosol Tab) 325 mg BIDM PO 01/17/17 08:00 02/16/17 07:59 01/25/17 18:00 325 MG Pantoprazole Sodium (Protonix Tab) 40 mg DAILY PO 01/17/17 09:00 02/16/17 08:59 01/25/17 08:25 40 MG Amiodarone HCl (Cordarone Tab) 200 mg DAILY PO 01/18/17 09:00 02/16/17 08:59 01/25/17 08:26 200 MG Ipratropium [place] (Atrovent 0.02% 0.5MG/2.5ML Neb) 0.5 mg Q2H PRN INH 01/17/17 04:00 02/16/17 03:59 Levalbuterol (Xopenex 1.25MG/ 0.5ML Neb) 1.25 mg Q2H PRN INH 01/17/17 04:00 02/16/17 03:59 Prednisone (PredniSONE TAB) 15 mg DAILY PO 01/18/17 09:00 02/17/17 08:59 01/25/17 08:25 15 MG Miscellaneous Information (Consult Glycemic Management Pharmacy) 1 [facility] N/A 01/19/17 16:43 02/18/17 16:42 Heparin Sodium (Porcine) (Heparin 10 Unit/ ml 5 ml Flush) 5 ml PRN PRN FLUSH 01/22/17 16:30 02/21/17 16:29 01/24/17 12:40 5 ML Warfarin Sodium (Coumadin Tab) 3 mg DAILY@16 PO 01/23/17 16:00 02/22/17 15:59 Future Hold 01/24/17 16:35 3 MG Polyethylene (Miralax Powder Packet) 17 gm BID PRN PO 01/23/17 09:15 02/22/17 09:14 Insulin Glargine (Lantus Solostar Pen) 10 units QPM SC 01/24/17 21:00 02/23/17 20:59 01/24/17 21:53 10 UNITS Vancomycin HCl (Consult) 1 [facility] PRN N/A 01/24/17 08:30 02/23/17 08:29 Vancomycin HCl 1000 mg/Sodium Chloride 270 ml @ 125 mls/hr Q12H IV 01/24/17 22:00 02/07/17 21:59 01/25/17 09:40 125 MLS/HR Benzonatate (Tessalon Perles Cap) 100 mg Q8 PRN PO 01/24/17 23:45 02/23/17 23:44 01/25/17 15:52 100 MG Sodium Chloride 1,000 ml @ 100 mls/hr Q10H IV 01/25/17 11:45 01/25/17 21:44 01/25/17 11:43 100 MLS/HR
[2017-01-25] MEDS: INSULIN GLARGINE SOLOSTAR 100 UNITS/ML 3 ML PEN SC SCH (21:02)
[2017-01-26 00:31] VITALS: BP 128/77; PULSE 89; TEMP 36.7; O2SAT 94
[2017-01-26] MEDS: BENZONATATE 100MG CAP PO PRN ×2 (00:51→11:06)
[2017-01-26] MEDS ORDERED: INSULIN ASPART 100 UNITS/ML 3 ML PEN SC SCH (02:00)
[2017-01-26] MEDS: ACETAMINOPHEN 325 MG TAB PO PRN (07:24)
[2017-01-26 07:30] VITALS: BP 112/67; PULSE 91; TEMP 36.5; O2SAT 89
[2017-01-26] MEDS ORDERED: VANCOMYCIN TROUGH ONE ×2 (07:30→09:30)
[2017-01-26 07:35] VITALS: O2SAT 92
[2017-01-26 08:00] VITALS: O2SAT 92
[2017-01-26] MEDS ORDERED: VANCOMYCIN INJ 1,000 MG in SODIUM CHLORIDE 0.9% 250ML 250 ML IV SCH (08:00)
[2017-01-26] MEDS ORDERED: NovoLIN-N (NPH) PER UNIT CHARGE SQ ONE (08:30)
[2017-01-26 08:34] LABS: INR 1.9 (0.9-1.1); PROTHROMBIN TIME (PATIENT) 20.7 SECONDS (9.0-12.0)
[2017-01-26 08:37] LABS: CALCIUM 8.7 mg/dl (8.5-10.1); CREATININE 1.09 mg/dl (0.60-1.40); POTASSIUM 3.5 mmol/L (3.5-5.1)
[2017-01-26 08:57] LABS: HEMATOCRIT 27.7 % (42-52); MEAN CELL VOLUME 81.2 fL (80-100); MEAN CORPUSCULAR HEMOGLOBIN 26.7 pg (25-34); MEAN CORPUSCULAR HGB CONC 32.9 g/dl (32-36); MEAN PLATELET VOLUME 8.5 fL (7.4-10.4); PLATELET COUNT 445 K/uL (130-400); RED BLOOD COUNT 3.41 M/uL (4.7-6.1); WHITE BLOOD COUNT 10.86 K/uL (4.8-10.8)
[2017-01-26] MEDS: FERROUS SULFATE 325 MG TAB PO SCH (09:19)
[2017-01-26] MEDS: AMIODARONE 200 MG TAB PO SCH (09:19)
[2017-01-26] MEDS: PANTOprazole SOD 40 MG TAB PO SCH (09:20)
[2017-01-26] MEDS: INSULIN ASPART 100 UNITS/ML 3 ML PEN SC SCH ×2 (09:23→11:50)
--- NOTE | 2017-01-26 09:58 | Progress Note ---
Medicine Progress Note Date & Time of Visit: Jan 26, 2017 at 09:58 . Subjective Feels well. Anxious to go home. No fever. Occasional nonproductive cough. No CP, SOB. No nausea, vomiting, diarrhea. Ambulating. . Objective Last 8 Hrs Date Time Temp Pulse Resp B/P (MAP) Pulse Ox O2 Delivery O2 Flow Rate FiO2 01/26/17 08:00 92 Room Air 01/26/17 07:35 92 Room Air 01/26/17 07:30 36.5 91 18 112/67 (82) 89 Room Air Physical Exam: General- no distress Neck- no JVD Lungs- few basilar rales Heart- irregular. no gallop Abdomen- + BS, soft, nontender Extremities- trace pretibial edema, no calf tenderness Neuro- alert . Laboratory Results: Last 24 Hours Test 01/25/17 10:56 01/25/17 16:35 01/25/17 20:17 01/26/17 01:45 Bedside Glucose 143 mg/dl 145 mg/dl 266 mg/dl 206 mg/dl Test 01/26/17 07:13 01/26/17 08:06 Bedside Glucose 88 mg/dl White Blood Count 10.86 K/uL Red Blood Count 3.41 M/uL Hemoglobin 9.1 g/dL Hematocrit 27.7 % Mean Corpuscular Volume 81.2 fL Mean Corpuscular Hemoglobin 26.7 pg Mean Corpuscular Hemoglobin Concent 32.9 g/dl RDW Standard Deviation 50.7 fL RDW Coefficient of Variation 17.1 % Platelet Count 445 K/uL Mean Platelet Volume 8.5 fL Prothrombin Time 20.7 SECONDS Prothromb Time International Ratio 1.9 Sodium Level 138 mmol/L Potassium Level 3.5 mmol/L Chloride Level 102 mmol/L Carbon Dioxide Level 26 mmol/L Anion Gap 10.0 mmol/L Blood Urea Nitrogen 17 mg/dl Creatinine 1.09 mg/dl Est Creatinine Clear Calc Drug Dose 68.2 ml/min Estimated GFR () 78.7 Estimated GFR (Non- 67.9 BUN/Creatinine Ratio 16.0 Random Glucose 140 mg/dl Calcium Level 8.7 mg/dl Vancomycin Level Trough 17.5 mcg/ml Assessment & Plan SEPSIS DUE TO MRSA BACTEREMIA / SUSPECTED PNEUMONIA Met criteria for sepsis per 2001 definition and current CMS criteria- fever, leukocytosis, tachycardia. Underlying immunosuppression due to rituximab + prednisone for GPA. Lactate was 1.09. Initial BP 96/57, improved with IV fluids. Blood cultures obtained and initially received broad spectrum antibiotics with IV levofloxacin and piperacillin / tazobactam. Chest x-ray showed pulmonary infiltrates as discussed below. /2 blood cultures day of admission grew MRSA. Prior history of MRSA bacteremia associated with abscess of left hand September 2016. ID consulted. Antibiotic therapy changed to ceftaroline. Repeat blood cultures 01/19 + 01/20 negative thus far. Consider endocarditis- TTE nondiagnostic; SACHA did not show any evidence of valvular vegetation. Consider infected IVC filter as discussed below. Consider other occult nidus of infection. Received IV ceftaroline x 7 days. ESR 47--> 37. C-reactive protein 5.11-->1.37 PICC line placed for outpatient IV antibiotic therapy. Transition to IV vancomycin for outpatient therapy with anticipated course of therapy of 6 weeks. PULMONARY INFILTRATES / PROBABLE PNEUMONIA Patient presented with fever and cough. Chest x-ray showed bibasilar patchy infiltrates. 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 Current symptoms seem to be most consistent with pneumonia rather than relapsing pulmonary GPA. Cough improved. Oxygenating well on RA. Will need f/u chest x-ray to assure resolution. HYPOXIA O2 sats as low as 84% on RA. Hypoxia probable secondary to pneumonia. Received supplemental O2. Now oxygenating well on RA. S/P PULMONARY EMBOLISM Developed PE ~ 09/27/16 and admitted to [facility] in [place]. IVC filter placed 09/29/[address] Harris Shipley retrievable MR Conditional device. Transferred to [facility]. Started on IV heparin and transitioned to warfarin. 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 Consider removal of device- timing and facility to be determined. INR today = 1.9. Titrate warfarin. 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 Initially managed with plasmapheresis, steroids, cyclophosphamide. Dr. Roa discussed case with Rheumatology. Rituximab held due to MRSA bacteremia. Continue prednisone. CHRONIC ATRIAL FIB Diltiazem started for better rate control, but blood pressures intermittently low. Continue amiodarone. Continue warfarin. HYPERTENSION / HYPOTENSION History of hypertension, treated with lisinopril in the past. Lisinopril was discontinued prior to this admission because of low blood pressures. It was restarted during this hospital stay, and then discontinued when diltiazem was added. Blood pressures intermittently low. Stopped diltiazem. Follow and titrate therapy. SLEEP APNEA Continue CPAP. DM TYPE 2 Not well-controlled. On prednisone for GPA. Septic at time of admission. Random blood sugar in ED 210. Hgb A1C 8.7. Pharmacy consulted for glycemic management. Received Lantus + NovoLog per protocol. FBS today = 88. Discharge on usual regimen. VTE PROPHYLAXIS Continue warfarin. DISPOSITION Discharge to home with outpatient IV antibiotic therapy. Case Management assisting with DC planning. Internal Medicine follow-up with Dr. Pérez. [facility] follow-up with Dr. Flowers in [place]. IVC filter to be removed by [facility] Radiology. given update. . Consultants: ID-Dr. Mario Roth-Dr. Efrain Puga Current Inpatient Medications: Current Inpatient Medications Medications (Trade) Dose Ordered Sig/Lg Route Start Time Stop Time Status Last Admin Dose Admin Acetaminophen (Tylenol Tab) 650 mg Q4H PRN PO 01/16/17 21:45 02/15/17 21:44 01/26/17 07:24 650 MG Nitroglycerin (Nitrostat Tab) 0.4 mg UD PRN SL 01/16/17 21:45 02/15/17 21:44 Insulin Aspart (novoLOG ASPART) SLIDING SCALE If C... ACHS SC 01/17/17 06:30 02/16/17 06:29 01/26/17 09:23 6 UNITS Glucose (Glucose 40% Gel) 15-30 GRAMS 15 GRAMS... UD PRN PO 01/16/17 21:45 02/15/17 21:44 Glucose (Glucose Chew Tab) 4-8 Tablets 4 Tabl... UD PRN PO 01/16/17 21:45 02/15/17 21:44 Dextrose (Dextrose 50% 50ML Syringe) 25-50ML OF 50% DW IV FOR... UD PRN IV 01/16/17 21:45 02/15/17 21:44 Glucagon (Glucagon Inj) 1 mg UD PRN SQ 01/16/17 21:45 02/15/17 21:44 Ferrous Sulfate (Feosol Tab) 325 mg BIDM PO 01/17/17 08:00 12/6/17 07:59 01/26/17 09:19 325 MG Pantoprazole Sodium (Protonix Tab) 40 mg DAILY PO 01/17/17 09:00 02/16/17 08:59 01/26/17 09:20 40 MG Amiodarone HCl (Cordarone Tab) 200 mg DAILY PO 01/18/17 09:00 02/16/17 08:59 01/26/17 09:19 200 MG Ipratropium [place] (Atrovent 0.02% 0.5MG/2.5ML Neb) 0.5 mg Q2H PRN INH 01/17/17 04:00 02/16/17 03:59 Levalbuterol (Xopenex 1.25MG/ 0.5ML Neb) 1.25 mg Q2H PRN INH 01/17/17 04:00 02/16/17 03:59 Prednisone (PredniSONE TAB) 15 mg DAILY PO 01/18/17 09:00 02/17/17 08:59 01/26/17 09:20 15 MG Miscellaneous Information (Consult Glycemic Management Pharmacy) 1 [facility] UD N/A 01/19/17 16:43 02/18/17 16:42 Heparin Sodium (Porcine) (Heparin 10 Unit/ ml 5 ml Flush) 5 ml PRN PRN FLUSH 01/22/17 16:30 02/21/17 16:29 01/26/17 00:49 5 ML Warfarin Sodium (Coumadin Tab) 3 mg DAILY@16 PO 01/23/17 16:00 02/22/17 15:59 Future Hold 01/24/17 16:35 3 MG Polyethylene (Miralax Powder Packet) 17 gm BID PRN PO 01/23/17 09:15 02/22/17 09:14 Insulin Glargine (Lantus Solostar Pen) 10 units QPM SC 01/24/17 21:00 02/23/17 20:59 01/25/17 21:02 10 UNITS Vancomycin HCl (Consult) 1 ea UD PRN N/A 01/24/17 08:30 02/23/17 08:29 Benzonatate (Tessalon Perles Cap) 100 mg Q8 PRN PO 01/24/17 23:45 02/23/17 23:44 11/15/17 00:51 100 MG Vancomycin HCl 1000 mg/Sodium Chloride 270 ml @ 125 mls/hr Q12@0800,1999 IV 01/26/17 08:00 02/07/17 21:59 01/26/17 09:17 125 MLS/HR
[2017-01-26] MEDS ORDERED: PRED10TA PO (10:23)
[2017-01-26] MEDS ORDERED: [UNRECOGNIZED DRUG - CODE] PO (10:23)
[2017-01-26] MEDS ORDERED: GEMF600T3 PO (10:23)
[2017-01-26] MEDS ORDERED: WARF-283 PO (10:25)
[2017-01-26] MEDS ORDERED: RTXI500 IV (10:28)
[2017-01-26] MEDS ORDERED: VANC500I IV (10:41)
[2017-01-26 10:49] VITALS: BP 112/67; PULSE 91; TEMP 36.5; O2SAT 92
--- NOTE | 2017-01-26 10:49 | Discharge Instructions ---
Discharge Instructions Date of Service Jan 26, 2017. Admission Reason for Admission: fever . Discharge Discharge Diagnosis / Problem: sepsis from MRSA infection in blood Discharge Goals Goal(s): Improve disease control Activity Recommendations Activity Limitations: resume your previous activity . Instructions / Follow-Up Instructions / Follow-Up APPOINTMENTS: INTERNAL MEDICINE 02/01/2017 11:20 AM Terry Pérez DO RHEUMATOLOGY 02/04/2017 11:40 AM Duane Figueroa MD VASCULAR SURGERY 02/08/2017 7:30 AM Vascular Lab, [facility] Dr. Chaudhary RADIOLOGY [facility] Dr. Shine placed the vena cava filter. Her office will contact you about removing filter. Please call Radiology Dept if you don't hear from them in 1 week. Phone #: [phone] OTHER INSTRUCTIONS: Vancomycin 1000 mg IV every 12 hours- you pick the schedule after first dose at home. PICC line should be removed after last dose of vancomycin. [facility] will [facility] to monitor and adjust your warfarin. Seek medical attention if you have: * temperature above 101 * chest pain or trouble breathing; coughing up blood * abdominal pain, nausea, vomiting * diarrhea, dark stools or bloody stools * blood in urine * severe joint pain * any unanswered questions or concerns Call 911 if symptoms are severe. Call if you have any questions or problems. My cell # is [phone]. You can also reach a [facility] hospitalist on duty at [facility] 24 hours a day by calling [phone]. Please take good care of yourself. Kendall Espinoza . Current Hospital Diet Patient's current hospital diet: Diabetes Type 2 Diet, AHA Diet (Heart Healthy) Discharge Diet Recommended Diet: AHA Diet (Heart Healthy), Diabetes Type 2 Diet Pending Studies Studies pending at discharge: no Laboratory Results Hemoglobin A1c Test 01/16/17 17:25 Range/Units Estimated Average Glucose 203 mg/dl Hemoglobin A1c 8.7 H 4.5-5.6 % Medical Emergencies . Who to Call and When: Medical Emergencies: If at any time you feel your situation is an emergency, please call 911 immediately. . Non-Emergent Contact Non-Emergency issues call your: Primary Care Provider, Hospital Doctor . . "Provider Documentation" section prepared by Kendall C Coppes. . VTE Core Measure Inpt VTE Proph given/why not?: Warfarin (Coumadin)
--- NOTE | 2017-01-28 19:17 | Discharge Summary ---
Discharge Summary Date of Service Jan 28, 2017. Discharge Summary Admission Date: Jan 16, 2017 at 20:24 Discharge Date: Jan 26, 2017 Discharge Disposition: Home with services Principal Diagnosis: sepsis secondary to MRSA . Secondary Diagnoses/Problems: Chronic and Resolved Medical Problems: Atrial fibrillation DM type 2 Granulomatous polyarteritis History MRSA History of pulmonary embolism Hypertension Sleep apnea S/P placement IVC filter . Consultations: ID-Dr. Mario Roth-Dr. Efrain Puga . Pending Studies/Follow-Up: Please note typographical error regarding vancomycin dosing below under Med Rec. Correct dose should be 1000 mg IV q 12 hrs. Proper dose was sent by fax to outpatient pharmacy by Case Management. . Medication Reconciliation New Medications: Vancomycin Hcl In Dextrose (Vancomycin Hcl In Dextros) 1 Inj Inj 100 MG IV Q12 for 35 Days, #70 DOSE Dosing to be adjusted as necessary per [facility]. Vanco trough recommended 01/28, then as indicated. Stop date 03/02/17. PICC should be removed after last dose. Continued Medications: Amiodarone Hcl (Cordarone) 200 Mg Tab 200 MG PO DAILY, TAB Atovaquone (Mepron) 750 Mg/5 Ml Susp 750 MG PO DAILY Cholecalciferol (Vitamin D3) 1,000 Unit Tab 2 TAB PO DAILY Ferrous Sulfate (Ferrous Sulfate) 325 Mg Tab 1 TAB PO BID Fish Oil ([place]-3) 1 Ea Cap 1 CAP PO TID, CAP Gemfibrozil (Lopid) 600 Mg Tab 600 MG PO BID, TAB Glipizide (Glucotrol) 10 Mg Tab 20 MG PO BID, TAB Insulin Glargine (Lantus) 100 Unit/Ml Inj 10 UNITS SC QPM, VIAL Liraglutide (Victoza) 18 Mg/3 Ml Inj 0.3 ML SC DAILY Pantoprazole (Protonix) 40 Mg Tab 40 MG PO BID, TAB Prednisone Tab (Prednisone) 10 Mg Tab 0 PO UD, TAB Current dose is 15 mg daily. Decrease dose to 10 mg daily according to instructions from Dr. Davis. Warfarin Sodium (Warfarin Sodium) 4 Mg Tab 4 MG PO DAILY 4 mg daily, then as directed by [facility]. Discontinued Medications: Rituximab (Rituxan) 10 Mg/Ml Inj 0 IV UD Admission Information HPI (per Admitting provider): History obtained from patient and records. 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 Patient admitted at [facility] last September 2016 for diffuse alveolar hemorrhage attributed new vasculitis diagnosis of Johan granulomatosis. Patient subsequently readmitted (09/30/2016-10/21/2016) a few days after discharge for pulmonary embolism sp IVC filter placement eventually started on anticoagulation. Patient noted to have AFib with RVR during admission. MRSA bacteremia (refractory to Vancomycin rx as per records) during confinement attributed to a left hand abscess sp drainage. SACHA from confinement in October 2016, EF 60-64 %, moderate MR, moderate TR, no LV segmental wall abnormalities, no vegetation. Px completed IV antibiotic course (initial Vancomycin later switched to Daptomycin/Ceftaroline course). Patient subsequently discharged to [facility] for rehabilitation After his protracted illness. Discharged home last month. Patient saw [facility] Rheumatology for vasculitis management November 2016. Outpatient Rituxan infusions (overlapped with steroid taper) a few weeks later upon completion of antibiotic Rx course for MRSA bacteremia. In the last few days, the patient also had cough symptoms, initially productive of clear later yellow to green sputum as per . Admits to some coughing, especially with cold water intake. Swallow eval during confinement at [facility], recommendations and findings not known to patient and family. Increasing shortness of breath on exertion. No chest pain. Denies weight gain or leg swelling. Some dizziness. Patient also noted achy left shoulder pain symptoms. As per patient, blood sugars are on the higher side this week. [facility] Chest x-ray clear as per . Worsening symptoms prompted ER consultation. Patient noted to be in rapid AFib upon arrival at the ER. Patient given IVF, Zosyn and Levaquin for sepsis. Heart rate currently controlled. . Physical Exam (per Admitting): VITAL SIGNS: Blood pressure noted to be 96/59 later 107/60, pulse rate 122 alter 90, RR 20, temperature 39.3, sats 84 on room air later 94 on 2 liters. GENERAL: Noted to wane, no respiratory distress. Dysphonic. SKIN: Pallor, warm. HEENT: Alopecia, pale palpebral conjunctivae. No ptosis. Dry buccal mucosa. NECK: No JVD. Supple. No tenderness. CHEST: Decreased effort. No tenderness. HEART: Irregular, systolic murmur. ABDOMEN: Soft, nontender. EXTREMITIES: No edema, no LE tenderness, no gross deformities. NEUROLOGIC: Coherent. No gross focality. . Hospital Course SEPSIS DUE TO MRSA BACTEREMIA / SUSPECTED PNEUMONIA Presented with fever, cough, weakness. Met criteria for sepsis per 2001 definition and current [facility] criteria- fever, leukocytosis, tachycardia. Underlying immunosuppression due to rituximab + prednisone for GPA. Lactate was 1.09. Initial BP 96/57, improved with IV fluids. Blood cultures obtained and initially received broad spectrum antibiotics with IV levofloxacin and piperacillin / tazobactam. Chest x-ray showed pulmonary infiltrates as discussed below. / blood cultures day of admission grew MRSA. Prior history of MRSA bacteremia associated with abscess of left hand September 2016. ID consulted. Antibiotic therapy changed to ceftaroline. Repeat blood cultures 01/19 + 01/20 negative thus far. Consider endocarditis- TTE nondiagnostic; SACHA did not show any evidence of valvular vegetation. Consider infected IVC filter as discussed below. Consider other occult nidus of infection. Received IV ceftaroline x 7 days. ESR 47--> 37. C-reactive protein 5.11-->1.37 PICC line placed for outpatient IV antibiotic therapy. Transition to IV vancomycin 1000 mg IV q 12 hrs for outpatient therapy with anticipated course of therapy of 6 weeks. PULMONARY INFILTRATES / PROBABLE PNEUMONIA Patient presented with fever and cough. Chest x-ray showed bibasilar patchy infiltrates. 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 Current symptoms seem to be most consistent with pneumonia rather than relapsing pulmonary GPA. Cough improved. Oxygenating well on RA. Will need f/u chest x-ray to assure resolution. HYPOXIA O2 sats as low as 84% on RA. Hypoxia probable secondary to pneumonia. Received supplemental O2. Now oxygenating well on RA. S/P PULMONARY EMBOLISM Developed PE ~ 09/27/16 and admitted to [facility] in [place]. IVC filter placed 09/29/[address] Harris Shipley retrievable MR Conditional device. Transferred to [facility]. Started on IV heparin and transitioned to warfarin. 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 Consider removal of device- timing and facility to be determined. INR day of discharge = 1.9. Titrate warfarin. 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 Initially managed with plasmapheresis, steroids, cyclophosphamide. Dr. Roa discussed case with Rheumatology. Rituximab held due to MRSA bacteremia. Continue prednisone. CHRONIC ATRIAL FIB Diltiazem started for better rate control, but blood pressures intermittently low. Continue amiodarone. Continue warfarin. HYPERTENSION / HYPOTENSION History of hypertension, treated with lisinopril in the past. Lisinopril was discontinued prior to this admission because of low blood pressures. It was restarted during this hospital stay, and then discontinued when diltiazem was added. Blood pressures intermittently low. Stopped diltiazem. Follow and titrate therapy. SLEEP APNEA Continue CPAP. DM TYPE 2 Not well-controlled. On prednisone for GPA. Septic at time of admission. Random blood sugar in ED 210. Hgb A1C 8.7. Pharmacy consulted for glycemic management. Received Lantus + NovoLog per protocol. FBS day of discharge = 88. Discharge on usual regimen. VTE PROPHYLAXIS Continue warfarin. DISPOSITION Discharge to home with outpatient IV antibiotic therapy. Case Management assisting with DC planning. Internal Medicine follow-up with Dr. Pérez. [facility] follow-up with Dr. Flowers in [place]. IVC filter to be removed by [facility] Radiology. given update. . Total time spent on discharge = 45 min. This includes examination of the patient, discharge planning, medication reconciliation, and communication with other providers. . Discharge Instructions Date of Service Jan 26, 2017. Admission Reason for Admission: fever . Discharge Discharge Diagnosis / Problem: sepsis from MRSA infection in blood Discharge Goals Goal(s): Improve disease control Activity Recommendations Activity Limitations: resume your previous activity . Instructions / Follow-Up Instructions / Follow-Up APPOINTMENTS: INTERNAL MEDICINE 02/01/2017 11:20 AM Terry Pérez DO RHEUMATOLOGY 02/04/2017 11:40 AM Duane Figueroa MD VASCULAR SURGERY 02/08/2017 7:30 AM Vascular Lab, [facility] Dr. Chaudhary RADIOLOGY [facility] Dr. Shine placed the vena cava filter. Her office will contact you about removing filter. Please call Radiology Dept if you don't hear from them in 1 week. Phone #: [phone] OTHER INSTRUCTIONS: Vancomycin 1000 mg IV every 12 hours- you pick the schedule after first dose at home. PICC line should be removed after last dose of vancomycin. [facility] will continue to monitor and adjust your warfarin. Seek medical attention if you have: * temperature above 101 * chest pain or trouble breathing; coughing up blood * abdominal pain, nausea, vomiting * diarrhea, dark stools or bloody stools * blood in urine * severe joint pain * any unanswered questions or concerns Call 911 if symptoms are severe. Call if you have any questions or problems. My cell # is [phone]. You can also reach a [facility] hospitalist on duty at [facility] 24 hours a day by calling [phone]. Please take good care of yourself. Kendall Espinoza . Current Hospital Diet Patient's current hospital diet: Diabetes Type 2 Diet, AHA Diet (Heart Healthy) Discharge Diet Recommended Diet: AHA Diet (Heart Healthy), Diabetes Type 2 Diet Pending Studies Studies pending at discharge: no Laboratory Results Hemoglobin A1c Test 01/16/17 17:25 Range/Units Estimated Average Glucose 203 mg/dl Hemoglobin A1c 8.7 H 4.5-5.6 % Medical Emergencies . Who to Call and When: Medical Emergencies: If at any time you feel your situation is an emergency, please call 911 immediately. . Non-Emergent Contact Non-Emergency issues call your: Primary Care Provider, Hospital Doctor . . "Provider Documentation" section prepared by Kendall Espinoza. . VTE Core Measure Inpt VTE Proph given/why not?: Warfarin (Coumadin) .
--- NOTE | 2017-01-28 19:23 | Progress Note ---
Progress Note Date of Service Jan 28, 2017. Progress Note Dr. Pérez and Dr. Chaudhary given update by phone date of discharge. Spoke with Radiology office at [facility] yesterday where IVC filter was placed. They will arrange for retrieval of device .
[2017-01-31] MEDS ORDERED: TPRSR25 PO ×2 (13:49→14:25)
== END 2017-01-26 11:50 | disposition home health service (06) | DRG 871 ==
LOC: EDBD 17:08 → C.EDC 17:11 → C.MED 20:24 → ENRESERV 20:49
PROVIDERS: ADMIT Hospitalist; ATTEND Hospitalist
PROC: 02HV33Z Insertion of Infusion Device into Superior Vena Cava, Percutaneous Approach (ICD-10-PCS; principal; 2017-01-22)
DX: A41.02 Sepsis due to Methicillin resistant Staphylococcus aureus (principal); J18.9 Pneumonia, unspecified organism; M31.30 Wegener's granulomatosis without renal involvement; J96.91 Respiratory failure, unspecified with hypoxia; R65.20 Severe sepsis without septic shock; I48.2 Chronic atrial fibrillation; Z79.4 Long term (current) use of insulin; I12.9 Hypertensive chronic kidney disease with stage 1 through stage 4 chronic kidney disease, or unspecified chronic kidney disease; E11.9 Type 2 diabetes mellitus without complications; Z87.891 Personal history of nicotine dependence; Z86.711 Personal history of pulmonary embolism; Z95.828 Presence of other vascular implants and grafts; I73.9 Peripheral vascular disease, unspecified; Z86.14 Personal history of Methicillin resistant Staphylococcus aureus infection; N18.9 Chronic kidney disease, unspecified; D64.9 Anemia, unspecified; G47.30 Sleep apnea, unspecified

== ENCOUNTER 2017-01-29 18:01 | Inpatient (IN) | payer OTHER, MEDICARE ==
[~2017-01-29] VITALS: Ht 182.9 cm; Wt 73.8 kg
[~2017-01-29 18:01] MED LIST: AMIO200T4 PO; CHOL1000 PO; FERR325T5 PO; GEMF600T3 PO; GLIP10TA9 PO; INSDGI SC; LIRA18IN SC; OMEG10007 PO; PANT40TA PO; PRED10TA PO; VANC500I IV; WARF-283 PO; [UNRECOGNIZED DRUG - CODE] PO
[2017-01-29 18:51] LABS: BASO % 0.2 %; BASO ABS # 0.03 K/uL (0-0.2); COMPLETE YES; EOS % 0.6 %; HEMATOCRIT 27.9 % (42-52); IG% 4.2 %; LYMPH ABS # 1.27 K/uL (1.2-3.4); MEAN CELL VOLUME 81.8 fL (80-100); MEAN CORPUSCULAR HEMOGLOBIN 26.4 pg (25-34); MEAN CORPUSCULAR HGB CONC 32.3 g/dl (32-36); MEAN PLATELET VOLUME 8.3 fL (7.4-10.4); MONO % 8.5 %; NEUT % 77.5 %; PLATELET COUNT 527 K/uL (130-400); RED BLOOD COUNT 3.41 M/uL (4.7-6.1); WHITE BLOOD COUNT 14.16 K/uL (4.8-10.8)
[2017-01-29] MEDS ORDERED: VANC1INJ9 IV (18:53)
--- NOTE | 2017-01-29 18:53 | DIAGNOSTIC IMAGING REPORT ---
CHEST ONE VIEW PORTABLE CLINICAL HISTORY: Sepsis COMPARISON STUDY: 03/24/2016 FINDINGS: The heart is normal in size. There is no failure. There are no pleural effusions. There are subtle interstitial opacities within the left midlung zone. This could represent an early pneumonitis. Clinical and radiographic follow-up is recommended. IMPRESSION: Developing subtle interstitial opacities within left midlung zone. Given the history of sepsis this could represent an early pneumonitis. Clinical and radiographic follow-up is recommended. Electronically signed by: Jose Cruz Torrez M.D. 01/29/2017 6:52 PM Dictated Date/Time: 01/29/2017 6:50 PM
[2017-01-29 18:57] LABS: ALT/SGPT 28 U/L (12-78); AST/SGOT 14 U/L (15-37); BLOOD UREA NITROGEN 16 mg/dl (7-18); BUN/CREATININE RATIO 15.3 (10-20); CALCIUM 8.6 mg/dl (8.5-10.1); CARBON DIOXIDE 26 mmol/L (21-32); CHLORIDE 101 mmol/L (98-107); CREATININE 1.03 mg/dl (0.60-1.40); GLUCOSE 84 mg/dl (70-99); POTASSIUM 3.8 mmol/L (3.5-5.1); SODIUM 136 mmol/L (136-145)
[2017-01-29 18:58] LABS: INR 2.5 (0.9-1.1); PARTIAL THROMBOPLASTIN RATIO 1.7; PROTHROMBIN TIME (PATIENT) 27.4 SECONDS (9.0-12.0)
[2017-01-29 19:02] LABS: ALB/GLOB RATIO 0.6 (0.9-2); ALKALINE PHOSPHATASE 132 U/L (45-117)
[2017-01-29] MEDS ORDERED: GLUCOSE 10 TABS/TUBE PO PRN (20:15)
[2017-01-29] MEDS ORDERED: GLUCOSE 40% GEL 15 GM TUBE PO PRN (20:15)
[2017-01-29] MEDS ORDERED: DEXTROSE 50% 50 ML SYR IV PRN (20:15)
[2017-01-29] MEDS ORDERED: GLUCAGON FOR INJ 1 MG VIAL SQ PRN (20:15)
--- NOTE | 2017-01-29 20:23 | History and Physical ---
History & Physical Date & Time of Service: Jan 29, 2017 at 20:22 Chief Complaint: Syncope Primary Care Physician: Terry Pérez D.O. 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 During hospitalization at [facility] on last admission, rituximab held due to MRSA bacteremia and continued on prednisone. # 2 history of IVC filter because of pulmonary embolism developed around when patient admitted to [facility] in [place] with IVC filter [place] retrievable MR Conditional device placed on 09/29/[address] Shine, and possible suspicion that the IVC filter could have been infected in light of recurrent MRSA bacteremia During hospitalization at [facility] between 01/16/17 to : Patient was on Ceftaroline IV as inpatient and then subsequently discharged on 01/26/17 to complete Vancomycin 1000 mg IV q 12 hrs for outpatient therapy with anticipated course of therapy of 6 weeks for MRSA bacteremia with unclear nidus of infection. As per discharge summary: TTE nondiagnostic; SACHA did not show any evidence of valvular vegetation, IVC filter suspected as a nidus of infection with plans for IVC filter to be removed after discharge at [facility] Radiology. Patient also on Coumadin 4 mg daily for history of pulmonary embolism and known to have chronic atrial fibrillation on amiodarone 200 mg daily. Discharge summary also listed continuing Atovaquone as outpatient discharge medication but in review of the chart it is unclear what role continuing this medication has in MRSA bacteremia and Granulomatosis with polyangiitis Lisinopril and Diltiazem for history of hypertension was discontinued on last hospital admission due to low blood pressure History of Diabetes on Insulin with discharge summary also recommendation continuing as Lantus 10 units qhs, Liraglutide (Victoza) 18 Mg/3 Ml Inj 0.3 ML SC daily, Glipizide 20 mg BID HISTORY OF PRESENT ILLNESS CC: SYNCOPE Patient presents to ER on 01/29/17 after multiple syncopal episodes as per patient's family at the bedside lasting for minutes and first happened when patient was in standing position. Patient was caught from falling down from striking the ground quickly but patient had to be on his knees due to these episodes. Patient and family denies loss of conscious. Patient denies shortness of breath or chest pain or abdominal pain. Patient reports 1 episode of small amount diarrhea but otherwise no other problems with bowel movements or urination. Past Medical/Surgical History Medical Problems: (1) Atrial fibrillation Status: Chronic (2) Diabetes Status: Chronic (3) Granulomatosis with polyangiitis Status: Chronic (4) MRSA (methicillin resistant Staphylococcus aureus) infection Status: Chronic (5) Pulmonary embolism Status: Chronic Family History No pertinent family history Social History Smoking Status: Unknown if Ever Smoked Drug Use: none Marital Status: Multi-Drug Resistant Organisms History of MDRO: Yes Type of MDRO: MRSA Allergies Coded Allergies: No Known Allergies (Unverified , 01/29/17) Home Medications Scheduled Amiodarone Hcl (Cordarone), 200 MG PO DAILY Atovaquone (Mepron), 750 MG PO DAILY Cholecalciferol (Vitamin D3), 2 TAB PO DAILY Ferrous Sulfate (Ferrous Sulfate), 1 TAB PO BID Fish Oil ([place]-3), 1 CAP PO TID Gemfibrozil (Lopid), 600 MG PO BID Glipizide (Glucotrol), 20 MG PO BID Insulin Glargine (Lantus), 10 UNITS SC QPM Liraglutide (Victoza), 0.3 ML SC DAILY Pantoprazole (Protonix), 40 MG PO BID Prednisone Tab (Prednisone), 0 PO UD Vancomycin Hcl In Dextrose (Vancomycin Hcl In Dextros), 1,000 MG IV Q12 Warfarin Sodium (Warfarin Sodium), 4 MG PO DAILY Review of Systems Constitutional: + weakness, No fever Eyes: No worsening of vision, No eye pain, No redness, No discharge, No diplopia, No problem reported ENT: No hearing loss, No unusual epistaxis, No nasal symptoms, No sore throat, No tinnitus, No dental problems, No trouble swallowing, No problem reported Respiratory: No cough, No sputum, No wheezing, No shortness of breath, No dyspnea on exertion, No dyspnea at rest, No hemoptysis, No problem reported Cardiovascular: No chest pain, No edema, No palpitations Abdomen: + diarrhea (1 small amount), No pain, No nausea, No vomiting, No constipation, No GI bleeding Musculoskeletal: No joint pain, No muscle pain, No swelling, No calf pain, No problem reported Genitourinary - Male: No dysuria Neurologic: + weakness, No numbness/tingling, No vertigo Psychiatric: No substance abuse Endocrine: No excessive thirst, No excessive urination Hematologic / Lymphatic: No abnormal bleeding/bruising, No clotting problems, No swollen lymph nodes, No night sweats Integumentary: No rash, No itch, No new/changing skin lesions, No color change , No bleeding, No problem reported Physical Exam Vital Signs Date Time Temp Pulse Resp B/P (MAP) Pulse Ox O2 Delivery O2 Flow Rate FiO2 01/29/17 20:06 95 23 93 01/29/17 20:00 122/88 01/29/17 19:36 88 23 97 01/29/17 19:31 89 22 94 01/29/17 19:30 125/85 01/29/17 19:13 95 01/29/17 19:01 89 23 93 01/29/17 19:00 120/66 01/29/17 18:19 96 116/65 87 117/76 01/29/17 18:11 94 Room Air 01/29/17 18:08 36.5 103 22 115/75 94 Room Air General Appearance: WD/WN, no apparent distress, + pertinent finding (frail appearing) Head: atraumatic Eyes: normal inspection, PERRL, EOMI, sclerae normal ENT: normal ENT inspection, hearing grossly normal, pharynx normal Neck: supple, thyroid normal, no JVD, trachea midline Respiratory/Chest: chest non-tender, normal breath sounds, no respiratory distress, no accessory muscle use, + crackles (bibasilar crackles) Cardiovascular: no edema, no JVD, normal peripheral pulses, + irregularly irregular Abdomen/GI: normal bowel sounds, non tender, soft Back: normal inspection, no CVA tenderness, no muscle spasm Extremities/Musculoskelatal: normal inspection, no calf tenderness, normal capillary refill, no pedal edema, + pertinent finding (has difficulty raising up from bed to upright position) Neurologic/Psych: no motor/sensory deficits, alert, oriented x 3 Skin: normal color, warm/dry, no rash Diagnostics Laboratory Results Results Past 24 Hours Test 01/29/17 18:25 01/29/17 18:30 Range/Units White Blood Count 14.16 4.8-10.8 K/uL Red Blood Count 3.41 4.7-6.1 M/uL Hemoglobin 9.0 14.0-18.0 g/dL Hematocrit 27.9 42-52 % Mean Corpuscular Volume 81.8 80-100 fL Mean Corpuscular Hemoglobin 26.4 25-34 pg Mean Corpuscular Hemoglobin Concent 32.3 32-36 g/dl Platelet Count 527 130-400 K/uL Mean Platelet Volume 8.3 7.4-10.4 fL Neutrophils (%) (Auto) 77.5 % Lymphocytes (%) (Auto) 9.0 % Monocytes (%) (Auto) 8.5 % Eosinophils (%) (Auto) 0.6 % Basophils (%) (Auto) 0.2 % Neutrophils # (Auto) 10.97 1.4-6.5 K/uL Lymphocytes # (Auto) 1.27 1.2-3.4 K/uL Monocytes # (Auto) 1.21 0.11-0.59 K/uL Eosinophils # (Auto) 0.08 0-0.5 K/uL Basophils # (Auto) 0.03 0-0.2 K/uL RDW Standard Deviation 52.7 36.4-46.3 fL RDW Coefficient of Variation 17.5 11.5-14.5 % Immature Granulocyte % (Auto) 4.2 % Immature Granulocyte # (Auto) 0.60 0.00-0.02 K/uL Prothrombin Time 27.4 9.0-12.0 SECONDS Prothromb Time International Ratio 2.5 0.9-1.1 Activated Partial Thromboplast Time 42.9 21.0-31.0 SECONDS Partial Thromboplastin Ratio 1.7 Sodium Level 136 136-145 mmol/L Potassium Level 3.8 3.5-5.1 mmol/L Chloride Level 101 98-107 mmol/L Carbon Dioxide Level 26 21-32 mmol/L Anion Gap 9.0 3-11 mmol/L Blood Urea Nitrogen 16 7-18 mg/dl Creatinine 1.03 0.60-1.40 mg/dl Est Creatinine Clear Calc Drug Dose 64.5 ml/min Estimated GFR () 84.3 Estimated GFR (Non- 72.7 BUN/Creatinine Ratio 15.3 10-20 Random Glucose 84 70-99 mg/dl Calcium Level 8.6 8.5-10.1 mg/dl Total Bilirubin 0.5 0.2-1 mg/dl Aspartate Amino Transf (AST/SGOT) 14 15-37 U/L Alanine Aminotransferase (ALT/SGPT) 28 12-78 U/L Alkaline Phosphatase 132 45-117 U/L Troponin I < 0.015 0-0.045 ng/ml Total Protein 6.0 6.4-8.2 gm/dl Albumin 2.2 3.4-5.0 gm/dl Globulin 3.8 2.5-4.0 gm/dl Albumin/Globulin Ratio 0.6 0.9-2 Random Vancomycin Level 16.9 mcg/ml Bedside Lactic Acid Venous 1.11 0.90-1.70 mmol/L Microbiology Results 01/29/17 Blood Culture, Received Pending 01/29/17 Blood Culture, Received Pending Diagnostic Radiology CHEST ONE VIEW PORTABLE FINDINGS: The heart is normal in size. There is no failure. There are no pleural effusions. There are subtle interstitial opacities within the left midlung zone. This could represent an early pneumonitis. Clinical and radiographic follow-up is recommended. IMPRESSION: Developing subtle interstitial opacities within left midlung zone. Given the history of sepsis this could represent an early pneumonitis EKG atrial fibrillation Vent. rate 80 BPM CA interval * ms QRS duration 92 ms QT/QTc 356/410 ms Impression Assessment and Plan Recent hospitalization at [facility] between 01/16/17 to primarily for Sepsis due to MRSA Bacteremia and suspected pneumonia who presents with syncope Syncope workup: History of Atrial Fibrillation, rate controlled, continue with Coumadin 4 mg daily, INR 2.5 on admission, trend INR, monitor on telemetry, continue amiodarone 200 mg daily Trend troponins recent TTE and SACHA completed on last hospitalization for rule out endocarditis from MRSA, and unlikely to benefit from another echo unless endocarditis is suspected Carotid ultrasound ordered Diabetes Mellitus: STOP home medications of Lantus 10 units qhs, Liraglutide ( Victoza) 18 Mg/3 Ml Inj 0.3 ML SC daily, Glipizide 20 mg BID, sliding scale insulin and trend glucose to avoid hypoglycemia induced symptoms Monitor blood pressure, on last hospitme admission patient's hypotension while on lisinopril or diltiazem MRSA bacteriemia and suspected pneumonia During hospitalization at [facility] between 01/16/17 to : Patient was on Ceftaroline IV as inpatient and then subsequently discharged on 01/26/17 to complete Vancomycin 1000 mg IV q 12 hrs for outpatient therapy with anticipated course of therapy of 6 weeks for MRSA bacteremia with unclear nidus of infection Patient was recommend to have vancomycin trough drawn on 01/28/17 as per discharge summary, But no results available Obtain Random Vancomycin level on this admission's labs, Continue Vancomycin 1 gram IV q12 hours, new Vancomycin trough level ordered for 01/31/17 CXR on 01/29/17: Developing subtle interstitial opacities within left midlung zone. Given the history of sepsis this could represent an early pneumonitis History of IVC filter because of pulmonary embolism developed around 09/27/16 when patient admitted to [facility] in [place] with IVC filter [place] retrievable MR Conditional device placed on 09/29/[address] 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 During hospitalization at [facility] on last admission, rituximab held due to MRSA bacteremia and continued on prednisone. Continue oral prednisone as 10 mg daily for now Discharge summary also listed continuing Atovaquone as outpatient discharge medication but in review of the chart it is unclear what role continuing this medication has in MRSA bacteremia and Granulomatosis with polyangiitis Continue medications for GERD Continue home medications of iron, vitamin D, fish oil DVT ppx: on coumadin Full Code Disposition: admission on telemetry when medically stable: Internal Medicine follow-up with Dr. Pérez. [facility] follow-up with Dr. Flowers in [place]. IVC filter to be removed by [facility] Level of Care Telemetry Resuscitation Status FULL RESUSCITATION VTE Prophylaxis VTE Risk Assessment Done? Y/N: Yes Risk Level: Moderate Given or contraindicated: Warfarin (Coumadin)
--- NOTE | 2017-01-29 20:39 | EMERGENCY ROOM VISIT NOTE ---
History Report prepared by Jeremy: Sandra Kirk Under the Supervision of: Dr. Narinder Kim M.D. First contact with patient: 18:05 Stated Complaint: SYNCOPE History of Present Illness The patient is a 71 year old male who presents to the Emergency Room with complaints of an episode of syncope occurring prior to arrival. The patient states that he was trying to go to the restroom and on the way there passed out. The patient states that he has felt his stomach churning all day today and when he would stand, he would become dizzy. He states that he has tried to eat today, but has only been successful at keeping soup down and has vomited everything else. The patient notes that when he fell he did not hit his head since his was standing behind him and caught him. The patient denies a headache, chest pain, shortness of breath, and abdominal pain. He notes that they have not pinpointed where his MRSA is, but think it may be his IVC filter. He notes he is scheduled to get it taken out next week. The patient notes he has been taking his Vancomycin at home and denies having a fever and melena. He notes he had a little loose stool this morning. Source of History: patient Onset: prior to arrival Position: other (global) Quality: other (global) Timing: other (episode) Associated Symptoms: + nausea, + vomiting, No fevers, No headache, No chest pain, No SOB, No abdominal pain, No melena Note: The patient complains of dizziness. Review of Systems See HPI for pertinent positives & negatives. A total of 10 systems reviewed and were otherwise negative. Past Medical & Surgical Medical Problems: (1) Atrial fibrillation (2) Diabetes (3) Granulomatosis with polyangiitis (4) MRSA (methicillin resistant Staphylococcus aureus) infection (5) Pulmonary embolism (6) Respiratory failure, acute (7) Syncope and collapse Family History No pertinent family history Social History Smoking Status: Former Smoker Drug Use: none Marital Status: Housing Status: lives with family Current/Historical Medications Scheduled Amiodarone Hcl (Cordarone), 200 MG PO DAILY Atovaquone (Mepron), 750 MG PO DAILY Cholecalciferol (Vitamin D3), 2 TAB PO DAILY Ferrous Sulfate (Ferrous Sulfate), 1 TAB PO BID Fish Oil ([place]-3), 1 CAP PO TID Gemfibrozil (Lopid), 600 MG PO BID Glipizide (Glucotrol), 20 MG PO BID Insulin Glargine (Lantus), 10 UNITS SC QPM Liraglutide (Victoza), 0.3 ML SC DAILY Pantoprazole (Protonix), 40 MG PO BID Prednisone Tab (Prednisone), 0 PO UD Vancomycin Hcl In Dextrose (Vancomycin Hcl In Dextros), 1,000 MG IV Q12 Warfarin Sodium (Warfarin Sodium), 4 MG PO DAILY Allergies Coded Allergies: No Known Allergies (Unverified , 01/29/17) Physical Exam Vital Signs Date Time Temp Pulse Resp B/P (MAP) Pulse Ox O2 Delivery O2 Flow Rate FiO2 01/29/17 20:06 95 23 93 01/29/17 20:00 122/88 01/29/17 19:36 88 23 97 01/29/17 19:31 89 22 94 01/29/17 19:30 125/85 01/29/17 19:13 95 01/29/17 19:01 89 23 93 01/29/17 19:00 120/66 01/29/17 18:19 96 116/65 87 117/76 01/29/17 18:11 94 Room Air 01/29/17 18:08 36.5 103 22 115/75 94 Room Air Physical Exam Constitutional: Vital signs reviewed. Eyes: Pupils are equal round reactive to light. Conjunctiva are noninjected. ENT: Pharynx is clear without erythema or exudate. Mucous membranes are moist. Neck supple without meningeal signs. Respiratory: Clear to auscultation bilaterally. Breath sounds are equal bilaterally. Cardiovascular: Regular rate and rhythm. No rubs or gallops. GI: Soft, nondistended and nontender. Bowel sounds are present. Musculoskeletal: No peripheral edema. No lower extremity tenderness. PICC line in left upper arm. Integumentary: No cyanosis. Neurological: The patient is awake and alert. No focal deficits. Psychiatric: Normal affect. Medical Decision & Procedures ER Provider Diagnostic Interpretation: Radiology results as stated below per my review and the radiologist's interpretation: CHEST ONE VIEW PORTABLE CLINICAL HISTORY: Sepsis COMPARISON STUDY: 03/24/2016 FINDINGS: The heart is normal in size. There is no failure. There are no pleural effusions. There are subtle interstitial opacities within the left midlung zone. This could represent an early pneumonitis. Clinical and radiographic follow-up is recommended. IMPRESSION: Developing subtle interstitial opacities within left midlung zone. Given the history of sepsis this could represent an early pneumonitis. Clinical and radiographic follow-up is recommended. Electronically signed by: Jose Cruz Torrez M.D. 01/29/2017 6:52 PM Dictated Date/Time: 01/29/2017 6:50 PM Laboratory Results 01/29/17 18:25 Red Blood Count 3.41, Mean Corpuscular Volume 81.8, Mean Corpuscular Hemoglobin 26.4, Mean Corpuscular Hemoglobin Concent 32.3, Mean Platelet Volume 8.3, Neutrophils (%) (Auto) 77.5, Lymphocytes (%) (Auto) 9.0, Monocytes (%) (Auto) 8.5, Eosinophils (%) (Auto) 0.6, Basophils (%) (Auto) 0.2, Neutrophils # (Auto) 10.97, Lymphocytes # (Auto) 1.27, Monocytes # (Auto) 1.21, Eosinophils # (Auto) 0.08, Basophils # (Auto) 0.03 01/29/17 18:25 Test 01/29/17 18:25 01/29/17 18:30 White Blood Count 14.16 K/uL (4.8-10.8) Red Blood Count 3.41 M/uL (4.7-6.1) Hemoglobin 9.0 g/dL (14.0-18.0) Hematocrit 27.9 % (42-52) Mean Corpuscular Volume 81.8 fL (80-100) Mean Corpuscular Hemoglobin 26.4 pg (25-34) Mean Corpuscular Hemoglobin Concent 32.3 g/dl (32-36) Platelet Count 527 K/uL (130-400) Mean Platelet Volume 8.3 fL (7.4-10.4) Neutrophils (%) (Auto) 77.5 % Lymphocytes (%) (Auto) 9.0 % Monocytes (%) (Auto) 8.5 % Eosinophils (%) (Auto) 0.6 % Basophils (%) (Auto) 0.2 % Neutrophils # (Auto) 10.97 K/uL (1.4-6.5) Lymphocytes # (Auto) 1.27 K/uL (1.2-3.4) Monocytes # (Auto) 1.21 K/uL (0.11-0.59) Eosinophils # (Auto) 0.08 K/uL (0-0.5) Basophils # (Auto) 0.03 K/uL (0-0.2) RDW Standard Deviation 52.7 fL (36.4-46.3) RDW Coefficient of Variation 17.5 % (11.5-14.5) Immature Granulocyte % (Auto) 4.2 % Immature Granulocyte # (Auto) 0.60 K/uL (0.00-0.02) Prothrombin Time 27.4 SECONDS (9.0-12.0) Prothromb Time International Ratio 2.5 (0.9-1.1) Activated Partial Thromboplast Time 42.9 SECONDS (21.0-31.0) Partial Thromboplastin Ratio 1.7 Anion Gap 9.0 mmol/L (3-11) Est Creatinine Clear Calc Drug Dose 64.5 ml/min Estimated GFR () 84.3 Estimated GFR (Non- 72.7 BUN/Creatinine Ratio 15.3 (10-20) Calcium Level 8.6 mg/dl (8.5-10.1) Total Bilirubin 0.5 mg/dl (0.2-1) Aspartate Amino Transf (AST/SGOT) 14 U/L (15-37) Alanine Aminotransferase (ALT/SGPT) 28 U/L (12-78) Alkaline Phosphatase 132 U/L (45-117) Troponin I < 0.015 ng/ml (0-0.045) Total Protein 6.0 gm/dl (6.4-8.2) Albumin 2.2 gm/dl (3.4-5.0) Globulin 3.8 gm/dl (2.5-4.0) Albumin/Globulin Ratio 0.6 (0.9-2) Random Vancomycin Level 16.9 mcg/ml Bedside Lactic Acid Venous 1.11 mmol/L (0.90-1.70) Laboratory results as reviewed by me. ECG Indication: syncope Rate (beats per minute): 89 Rhythm: atrial fibrillation Findings: no acute ischemic change, other (QRS 94 milliseconds) ED Course 1806: The patient was evaluated in room C6. A complete history and physical exam was performed. 1910: I reevaluated the patient and he is doing well. I updated him and his on his test results. 1912: I spoke with Dr. Molina of [facility]. We discussed the patient and his results. The patient will be further evaluated by Dr. Molina. Medical Decision This is a 71-year-old male who presents with a syncopal episode. Differential diagnosis includes dehydration, orthostatic hypotension, vasovagal syncope, dysrhythmia, metabolic derangement. I did perform a limited focused review of portions of the patient's old chart on the electronic medical record. The patient was admitted January 16 and discharged January 26 for Sepsis secondary to MRSA. I did evaluate the patient as noted above. The patient is presenting with a syncopal episode. He has been nauseated all day and has not been eating very much. He tried to get up and go the bathroom and felt dizzy and passed out. His caught him and he did not injure himself. He currently has no complaints. IV access was established. The patient was placed on a continuous tire fixer. I did order and personally review the patient's 12-lead EKG and chest x-ray as described above. I did order and review the patient's blood work as noted in the electronic medical record. His white blood cell count is elevated. He has anemia which is chronic and stable. I did discuss the test results with the patient and his . He was sent here by the [facility] physician to be likely rehospitalized. I did discuss the case with the hospitalist and hospice case manager. Medication Reconcilliation Current Medication List: was personally reviewed by me Blood Pressure Screening Patient's blood pressure: Normal blood pressure Blood pressure disposition: Did not require urgent referral Consults Time Called: 1909 Consulting Physician: Dr. Owen [facility] Returned Call: [address] [facility] We discussed the patient and his results. The patient will be further evaluated by Dr. Molina. Impression Primary Impression: Syncope Additional Impressions: Anemia MRSA (methicillin resistant Staphylococcus aureus) infection Scribe Attestation The scribe's documentation has been prepared under my direct and personally reviewed by me in its entirety. I confirm that the note above accurately reflects all work, treatment, procedures, and medical decision making performed by me. Departure Information Dispostion Being Evaluated By Hospitalist Referrals Terry Pérez D.O. (PCP) Problem Qualifiers Primary Impression: Syncope Syncope type: unspecified Qualified Codes: R55 - Syncope and collapse Additional Impressions: Anemia Anemia type: unspecified type Qualified Codes: D64.9 - Anemia, unspecified
[2017-01-29 20:51] VITALS: BP 126/69; PULSE 91; TEMP 36.6; O2SAT 96; Ht 182.9 cm; Wt 73.8 kg
[2017-01-29] MEDS ORDERED: INSULIN GLARGINE SOLOSTAR 100 UNITS/ML 3 ML PEN SC SCH (21:00)
[2017-01-29] MEDS ORDERED: DEXTROSE IV SCH (21:00)
[2017-01-29] MEDS ORDERED: [UNRECOGNIZED DRUG - OTHER] IV SCH (21:00)
[2017-01-29] MEDS: INSULIN ASPART 100 UNITS/ML 3 ML PEN SC SCH (21:00)
[2017-01-29] MEDS ORDERED: VANCOMYCIN HCL IV SCH (21:00)
[2017-01-29 21:12] LABS: URINE APPEARANCE CLEAR (CLEAR); URINE BILIRUBIN NEG (NEG); URINE COLOR YELLOW; URINE NITRITE NEG (NEG); URINE PH 7.5 (4.5-7.5); URINE SPECIFIC GRAVITY 1.011 (1.000-1.030); UROBILINOGEN NEG (NEG); ZZUR CULT IF INDIC CLEAN CATCH NO
[2017-01-29 21:14] LABS: MANUAL MICROSCOPIC REQUIRED? NO; REVIEW REQ? NO
[2017-01-29] MEDS: PANTOprazole SOD 40 MG TAB PO SCH (21:59)
[2017-01-29] MEDS: GEMFIBROZIL 600 MG TAB PO SCH (22:00)
[2017-01-29] MEDS: OMEGA-3 (PURIFIED FISH OIL) 1 GM CAP PO SCH (22:00)
[2017-01-29] MEDS: FERROUS SULFATE 325 MG TAB PO SCH (22:00)
--- NOTE | 2017-01-29 22:02 | DIAGNOSTIC IMAGING REPORT ---
ULTRASOUND OF THE CAROTID ARTERIES CLINICAL HISTORY: syncope COMPARISON STUDY: None. TECHNIQUE: Real-time, grayscale, and color Doppler sonography of the carotid arteries was performed. Imaging reviewed in the transverse and longitudinal planes. NASCET criteria was utilized for stenosis calcification. FINDINGS: There is mild to moderate echogenic atherosclerotic plaque present . The peak systolic velocity within the right internal carotid artery is 70 cm/sec. The systolic velocity ratio of right internal to common carotid artery is 0.9. The peak systolic velocity within the left internal carotid artery is 95 cm/sec. The systolic velocity ratio left internal to common carotid artery is 1.1. Antegrade flow is seen in the vertebral arteries. The external carotid arteries are patent. IMPRESSION: No evidence of hemodynamically significant carotid stenosis. Electronically signed by: Jose Cruz Torrez M.D. 01/29/2017 10:01 PM Dictated Date/Time: 01/29/2017 9:59 PM
[2017-01-29] MEDS ORDERED: VANCOMYCIN INJ 1,000 MG in SODIUM CHLORIDE 0.9% 250ML 250 ML IV SCH (23:00)
[2017-01-29] MEDS ORDERED: VANCOMYCIN CONSULT ACTIVE PRN (23:15)
[2017-01-29 23:59] VITALS: BP 119/74; PULSE 85; TEMP 36.7; O2SAT 95
[2017-01-30 04:06] VITALS: BP 110/61; PULSE 88; TEMP 36; O2SAT 95
[2017-01-30] MEDS: INSULIN ASPART 100 UNITS/ML 3 ML PEN SC SCH ×4 (07:00→20:59)
[2017-01-30 07:58] LABS: BASO % 0.3 %; BASO ABS # 0.03 K/uL (0-0.2); COMPLETE YES; EOS % 1.1 %; HEMATOCRIT 29.3 % (42-52); LYMPH % 10.7 %; LYMPH ABS # 1.25 K/uL (1.2-3.4); MEAN CELL VOLUME 82.1 fL (80-100); MEAN CORPUSCULAR HEMOGLOBIN 26.9 pg (25-34); MEAN CORPUSCULAR HGB CONC 32.8 g/dl (32-36); MEAN PLATELET VOLUME 8.4 fL (7.4-10.4); MONO % 10.2 %; NEUT % 72.7 %; PLATELET COUNT 460 K/uL (130-400); RED BLOOD COUNT 3.57 M/uL (4.7-6.1); WHITE BLOOD COUNT 11.73 K/uL (4.8-10.8)
[2017-01-30] MEDS: GEMFIBROZIL 600 MG TAB PO SCH ×2 (08:01→20:57)
[2017-01-30] MEDS: CHOLECALCIFEROL 1000 INTER.UNIT TAB PO SCH (08:02)
[2017-01-30] MEDS: OMEGA-3 (PURIFIED FISH OIL) 1 GM CAP PO SCH ×3 (08:02→20:57)
[2017-01-30] MEDS: PANTOprazole SOD 40 MG TAB PO SCH ×2 (08:03→20:57)
[2017-01-30] MEDS: FERROUS SULFATE 325 MG TAB PO SCH ×2 (08:03→20:57)
[2017-01-30] MEDS: AMIODARONE 200 MG TAB PO SCH (08:03)
[2017-01-30 08:07] LABS: INR 2.2 (0.9-1.1); PROTHROMBIN TIME (PATIENT) 24.3 SECONDS (9.0-12.0)
[2017-01-30 08:17] VITALS: BP 124/71; PULSE 88; TEMP 36.6; O2SAT 96
[2017-01-30 08:26] LABS: ALT/SGPT 24 U/L (12-78); AST/SGOT 13 U/L (15-37); BLOOD UREA NITROGEN 15 mg/dl (7-18); CALCIUM 8.8 mg/dl (8.5-10.1); CARBON DIOXIDE 27 mmol/L (21-32); CHLORIDE 102 mmol/L (98-107); GLUCOSE 69 mg/dl (70-99); POTASSIUM 4.3 mmol/L (3.5-5.1); SODIUM 133 mmol/L (136-145)
[2017-01-30 08:30] LABS: ALB/GLOB RATIO 0.5 (0.9-2); ALKALINE PHOSPHATASE 124 U/L (45-117)
[2017-01-30] MEDS ORDERED: LIRAGLUTIDE SC SCH (09:00)
[2017-01-30] MEDS ORDERED: ATOVAQUONE 750 MG PO SCH (09:00)
[2017-01-30] MEDS: VANCOMYCIN INJ 1,000 MG in SODIUM CHLORIDE 0.9% 250ML 250 ML IV SCH ×2 (09:45→20:59)
[2017-01-30 11:33] VITALS: BP 117/77; PULSE 96; TEMP 36.7; O2SAT 97
--- NOTE | 2017-01-30 12:09 | Progress Note ---
Medicine Progress Note Date & Time of Visit: Jan 30, 2017 at 09:25. Subjective Pt was seen and examined Lying in bed with no distress Pt said that he is starting to have his strength back He said that he feels fine His HR increased in the 140's early this morning was seen from tele monitor for about 1 hr until dropped in the 90's Denies any palpitation, dizziness, palpitation, chest pain and sob Objective Last 8 Hrs Date Time Temp Pulse Resp B/P (MAP) Pulse Ox O2 Delivery O2 Flow Rate FiO2 01/30/17 08:17 36.6 88 18 124/71 (88) 96 Room Air 01/30/17 08:00 Room Air 01/30/17 04:06 36.0 88 20 110/61 (77) 95 Room Air 01/30/17 04:00 Room Air Physical Exam: General- No acute distress Head- atraumatic Eyes- PERRL, EOMI ENT- oropharynx clear Neck- supple, no JVD Lungs- clear to auscultation Heart- irregular rhythm Abdomen- normal bowel sounds, soft, nontender Extremities- no pretibial edema, no calf tenderness Neuro- alert, oriented x 3; PERRL, EOMI; no facial palsy, no motor and sensory deficits Skin- warm & dry Laboratory Results: Last 24 Hours Test 01/29/17 18:25 01/29/17 18:30 01/29/17 20:41 01/29/17 20:50 White Blood Count 14.16 K/uL Red Blood Count 3.41 M/uL Hemoglobin 9.0 g/dL Hematocrit 27.9 % Mean Corpuscular Volume 81.8 fL Mean Corpuscular Hemoglobin 26.4 pg Mean Corpuscular Hemoglobin Concent 32.3 g/dl Platelet Count 527 K/uL Mean Platelet Volume 8.3 fL Neutrophils (%) (Auto) 77.5 % Lymphocytes (%) (Auto) 9.0 % Monocytes (%) (Auto) 8.5 % Eosinophils (%) (Auto) 0.6 % Basophils (%) (Auto) 0.2 % Neutrophils # (Auto) 10.97 K/uL Lymphocytes # (Auto) 1.27 K/uL Monocytes # (Auto) 1.21 K/uL Eosinophils # (Auto) 0.08 K/uL Basophils # (Auto) 0.03 K/uL RDW Standard Deviation 52.7 fL RDW Coefficient of Variation 17.5 % Immature Granulocyte % (Auto) 4.2 % Immature Granulocyte # (Auto) 0.60 K/uL Prothrombin Time 27.4 SECONDS Prothromb Time International Ratio 2.5 Activated Partial Thromboplast Time 42.9 SECONDS Partial Thromboplastin Ratio 1.7 Sodium Level 136 mmol/L Potassium Level 3.8 mmol/L Chloride Level 101 mmol/L Carbon Dioxide Level 26 mmol/L Anion Gap 9.0 mmol/L Blood Urea Nitrogen 16 mg/dl Creatinine 1.03 mg/dl Est Creatinine Clear Calc Drug Dose 64.5 ml/min Estimated GFR () 84.3 Estimated GFR (Non- 72.7 BUN/Creatinine Ratio 15.3 Random Glucose 84 mg/dl Calcium Level 8.6 mg/dl Total Bilirubin 0.5 mg/dl Aspartate Amino Transf (AST/SGOT) 14 U/L Alanine Aminotransferase (ALT/SGPT) 28 U/L Alkaline Phosphatase 132 U/L Troponin I < 0.015 ng/ml Total Protein 6.0 gm/dl Albumin 2.2 gm/dl Globulin 3.8 gm/dl Albumin/Globulin Ratio 0.6 Random Vancomycin Level 16.9 mcg/ml Bedside Lactic Acid Venous 1.11 mmol/L Urine Color YELLOW Urine Appearance CLEAR Urine pH 7.5 Urine Specific Bunch 1.011 Urine Protein NEG Urine Glucose (UA) NEG Urine Ketones NEG Urine Occult Blood NEG Urine Nitrite NEG Urine Bilirubin NEG Urine Urobilinogen NEG Urine Leukocyte Esterase NEG Urine WBC (Auto) 1-5 /hpf Urine RBC (Auto) 0-4 /hpf Urine Hyaline Casts (Auto) 1-5 /lpf Urine Epithelial Cells (Auto) 10-20 /lpf Urine Bacteria (Auto) NEG Bedside Glucose 79 mg/dl Test 01/30/17 06:18 01/30/17 07:33 Bedside Glucose 73 mg/dl White Blood Count 11.73 K/uL Red Blood Count 3.57 M/uL Hemoglobin 9.6 g/dL Hematocrit 29.3 % Mean Corpuscular Volume 82.1 fL Mean Corpuscular Hemoglobin 26.9 pg Mean Corpuscular Hemoglobin Concent 32.8 g/dl Platelet Count 460 K/uL Mean Platelet Volume 8.4 fL Neutrophils (%) (Auto) 72.7 % Lymphocytes (%) (Auto) 10.7 % Monocytes (%) (Auto) 10.2 % Eosinophils (%) (Auto) 1.1 % Basophils (%) (Auto) 0.3 % Neutrophils # (Auto) 8.53 K/uL Lymphocytes # (Auto) 1.25 K/uL Monocytes # (Auto) 1.20 K/uL Eosinophils # (Auto) 0.13 K/uL Basophils # (Auto) 0.03 K/uL RDW Standard Deviation 52.6 fL RDW Coefficient of Variation 17.6 % Immature Granulocyte % (Auto) 5.0 % Immature Granulocyte # (Auto) 0.59 K/uL Prothrombin Time 24.3 SECONDS Prothromb Time International Ratio 2.2 Sodium Level 133 mmol/L Potassium Level 4.3 mmol/L Chloride Level 102 mmol/L Carbon Dioxide Level 27 mmol/L Anion Gap 5.0 mmol/L Blood Urea Nitrogen 15 mg/dl Creatinine 1.10 mg/dl Est Creatinine Clear Calc Drug Dose 65.1 ml/min Estimated GFR () 77.9 Estimated GFR (Non- 67.2 BUN/Creatinine Ratio 14.0 Random Glucose 69 mg/dl Calcium Level 8.8 mg/dl Total Bilirubin 0.6 mg/dl Aspartate Amino Transf (AST/SGOT) 13 U/L Alanine Aminotransferase (ALT/SGPT) 24 U/L Alkaline Phosphatase 124 U/L Troponin I < 0.015 ng/ml Total Protein 5.9 gm/dl Albumin 2.1 gm/dl Globulin 3.8 gm/dl Albumin/Globulin Ratio 0.5 Date/Time Source Procedure Growth Status 01/29/17 18:46 Blood Blood Culture Pending Received 01/29/17 18:25 Blood Blood Culture Pending Received Assessment & Plan Syncopal episode Etiology unknown Possible due to orthostatic/vasovagal Episode last seconds to minutes No focal neuro deficit Carotid u/s showed no evidence of hemodynamically significant carotid stenosis. Will do PT Check ortho BP Will monitor blood pressure BP was low in the last admission while on lisinopril or diltiazem Chronic Afib Rate controlled Reviewed tele monitor showed HR increased in the 140's and lasted for about 1 hr HR currently in the 90's Nurse said that HR increases in the 130 with activity Will consider to a low dose of metoprolol, will watch BP Continue with Coumadin 4 mg daily, INR 2.2 today Continue amiodarone 200 mg daily Monitor INR Last ECHO on 01/21/17 * The left ventricle is normal in size. * There is mild concentric left ventricular hypertrophy. * The left ventricular wall motion is normal. * Ejection Fraction = 60-65%. 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 * The mitral valve anatomy is normal. * There is no vegetation seen on the mitral valve. * The tricuspid valve anatomy is normal. * There is no tricuspid valve vegetation. * There is no vegetation on the pulmonic valve. * Mild atherosclerotic plaque(s) in the descending aorta. * The interatrial septum is intact with no evidence for an atrial septal defect. Diabetes Mellitus Recent Hba1c 8.7 on 01/16 Low glucose this morning 69 On Victoza, glipizide and Lantus that have been on hold Continue monitor BS On sliding scale Consider to d/c glipizide on discharge to avoid hypoglycemic episode MRSA bacteriemia and suspected pneumonia During hospitalization at [facility] between 01/16/17 to : Patient was on Ceftaroline IV as inpatient and then subsequently discharged on 01/26/17 to complete Vancomycin 1000 mg IV q 12 hrs for outpatient therapy to complete 6 weeks for MRSA bacteremia with unclear nidus of infection vancomycin trough 16.9 (01/30) Continue Vancomycin 1 gram IV q12 hours, new Vancomycin trough level ordered for 01/31/17 CXR on admssion showed developing subtle interstitial opacities within left midlung zone. 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 During hospitalization at [facility] on last admission, rituximab held due to MRSA bacteremia and Continue on prednisone. Reviewed outpatient med rec showed Atovaquone, unclear why pt was starting on it , will continue to hold it for now DVT ppx: on Coumadin INR therapeutic CODE STATUS Full Code Disposition Continue monitor in telemetry Internal Medicine follow-up with Dr. Pérez. [facility] follow-up with Dr. Flowers in [place]. IVC filter to be removed by [facility] Current Inpatient Medications: Current Inpatient Medications Medications (Trade) Dose Ordered Sig/Lg Route Start Time Stop Time Status Last Admin Dose Admin Warfarin Sodium (Coumadin Tab) 4 mg DAILY@1600 PO 01/30/17 16:00 03/01/17 15:59 Amiodarone HCl (Cordarone Tab) 200 mg DAILY PO 01/30/17 09:00 03/01/17 08:59 01/30/17 08:03 200 MG Cholecalciferol (Vitamin D Tab) 2,000 inter.unit DAILY PO 01/30/17 09:00 03/01/17 08:59 01/30/17 08:02 2,000 INTER.UNIT Ferrous Sulfate (Feosol Tab) 325 mg BID PO 01/29/17 21:00 02/28/17 20:59 01/30/17 08:03 325 MG Gemfibrozil (Lopid Tab) 600 mg BID PO 01/29/17 21:00 02/28/17 20:59 01/30/17 08:01 600 MG Pantoprazole Sodium (Protonix Tab) 40 mg BID PO 01/29/17 21:00 02/28/17 20:59 01/30/17 08:03 40 MG Prednisone (PredniSONE TAB) 10 mg DAILY PO 01/30/17 09:00 03/01/17 08:59 01/30/17 08:02 10 MG Glucose (Glucose 40% Gel) 15-30 GRAMS 15 GRAMS... UD PRN PO 01/29/17 20:15 02/28/17 20:14 Glucose (Glucose Chew Tab) 4-8 Tablets 4 Tabl... UD PRN PO 01/29/17 20:15 02/28/17 20:14 Dextrose (Dextrose 50% 50ML Syringe) 25-50ML OF 50% DW IV FOR... UD PRN IV 01/29/17 20:15 02/28/17 20:14 Glucagon (Glucagon Inj) 1 mg UD PRN SQ 01/29/17 20:15 02/28/17 20:14 Insulin Aspart (novoLOG ASPART) SLIDING SCALE If C... ACHS SC 01/29/17 21:00 02/28/17 20:59 Fish Oil (Bennett-3 (Purified Fish Oil) Cap) 1 gm TID PO 01/29/17 21:00 02/28/17 20:59 01/30/17 08:02 1 GM Vancomycin HCl (Consult) 1 ea UD PRN N/A 01/29/17 23:15 02/28/17 23:14 Heparin Sodium (Porcine) (Heparin 10 Unit/ ml 5 ml Flush) 5 ml PRN PRN FLUSH 01/30/17 00:30 03/01/17 00:29 Vancomycin HCl 1000 mg/Sodium Chloride 270 ml @ 125 mls/hr Q12H IV 01/30/17 09:00 03/01/17 08:59 01/30/17 09:45 125 MLS/HR
[2017-01-30] MEDS ORDERED: METOPROLOL SUCC 25MG EXT REL TAB PO ONE (12:10)
--- NOTE | 2017-01-30 13:50 | Pharmacy Progress Note ---
Pharmacy Abx Initial Consult Date of Service Jan 30, 2017. Pharmacy Dosing Scope Date of Consult: 01/29/17 Consultation requested by: Dr. Molina Pharmacy is consulted to initiate Vancomycin IV dosing therapy, order appropriate labs and adjust drug dose/frequency. Subjective The patient is a 71 year old male admitted on Jan 29, 2017 at 19:45. Objective Height (Feet): 6 Height (Inches): 0.00 Weight (Kilograms): 74.700 Vital Signs (Past 12Hrs) Vital Signs Past 12 Hours Date Time Temp Pulse Resp B/P (MAP) Pulse Ox O2 Delivery O2 Flow Rate FiO2 01/30/17 12:00 Room Air 01/30/17 11:33 36.7 96 18 117/77 (90) 97 Room Air 01/30/17 08:17 36.6 88 18 124/71 (88) 96 Room Air 01/30/17 08:00 Room Air 01/30/17 04:06 36.0 88 20 110/61 (77) 95 Room Air 01/30/17 04:00 Room Air Lab Results (24Hrs) Laboratory Tests (24 Hours) Test 01/30/17 07:33 White Blood Count 11.73 K/uL (4.8-10.8) H Red Blood Count 3.57 M/uL (4.7-6.1) L Hemoglobin 9.6 g/dL (14.0-18.0) L Hematocrit 29.3 % (42-52) L Mean Corpuscular Volume 82.1 fL (80-100) Mean Corpuscular Hemoglobin 26.9 pg (25-34) Mean Corpuscular Hemoglobin Concent 32.8 g/dl (32-36) Platelet Count 460 K/uL (130-400) H Mean Platelet Volume 8.4 fL (7.4-10.4) Neutrophils (%) (Auto) 72.7 % Lymphocytes (%) (Auto) 10.7 % Monocytes (%) (Auto) 10.2 % Eosinophils (%) (Auto) 1.1 % Basophils (%) (Auto) 0.3 % Neutrophils # (Auto) 8.53 K/uL (1.4-6.5) H Lymphocytes # (Auto) 1.25 K/uL (1.2-3.4) Monocytes # (Auto) 1.20 K/uL (0.11-0.59) H Eosinophils # (Auto) 0.13 K/uL (0-0.5) Basophils # (Auto) 0.03 K/uL (0-0.2) Micro Results Date/Time Source Procedure Growth Status 01/29/17 18:46 Blood Blood Culture Pending Received 01/29/17 18:25 Blood Blood Culture Pending Received Risk Factors for Resistance * Hospitalization for 48 hours or more within the past 90 days * Immunocompromised (chemotherapy) * History of infection with a multidrug-resistant organism: MRSA bacteremia causing admission from 01/16-01/26 * Antimicrobial use: Had been on Vancomycin 1 gm IV q12h during this admission and was discharged on this to be continued. Assessment & Plan Assessment 71 year old male with MRSA bacteremia and suspected Pneumonia. Since patient was on this [employer], and random level obtained yesterday evening was therapeutic at 18:25 (level was 16.9 mcg/ml), will continue with Vanco 1 gm IV q12h. Plan Vancomycin IV * Vancomycin 1 gm IV q12h ongoing. * Goal trough level for bacteremia: 15 to 20 mcg/mL * Trough Vanco level ordered for 01/31/17 before dose at 0900. Pharmacy will continue to follow and will adjust dose/frequency as necessary. Thank you.
[2017-01-30 15:39] VITALS: BP 152/88; PULSE 95; TEMP 36.7; O2SAT 98
[2017-01-30] MEDS ORDERED: WARFARIN SOD 4 MG TAB PO SCH (16:00)
[2017-01-30 19:35] VITALS: BP 144/88; PULSE 75; TEMP 36.6; O2SAT 96
[2017-01-30] MEDS ORDERED: INSULIN GLARGINE SOLOSTAR 100 UNITS/ML 3 ML PEN SC SCH (21:00)
[2017-01-31 00:27] VITALS: BP 124/72; PULSE 78; TEMP 36.5; O2SAT 93
[2017-01-31 03:15] VITALS: BP 124/75; PULSE 78; TEMP 36.6; O2SAT 93
[2017-01-31] MEDS: CHOLECALCIFEROL 1000 INTER.UNIT TAB PO SCH (07:58)
[2017-01-31] MEDS: AMIODARONE 200 MG TAB PO SCH (07:58)
[2017-01-31] MEDS: OMEGA-3 (PURIFIED FISH OIL) 1 GM CAP PO SCH (07:58)
[2017-01-31] MEDS: GEMFIBROZIL 600 MG TAB PO SCH (07:58)
[2017-01-31] MEDS: FERROUS SULFATE 325 MG TAB PO SCH (07:58)
[2017-01-31 08:12] VITALS: BP 111/70; PULSE 92; TEMP 36.6; O2SAT 95
[2017-01-31] MEDS ORDERED: VANCOMYCIN TROUGH ONE (08:30)
[2017-01-31] MEDS: PANTOprazole SOD 40 MG TAB PO SCH (08:50)
[2017-01-31] MEDS: INSULIN ASPART 100 UNITS/ML 3 ML PEN SC SCH ×2 (08:50→11:55)
[2017-01-31 08:57] LABS: INR 2.2 (0.9-1.1); PROTHROMBIN TIME (PATIENT) 24.4 SECONDS (9.0-12.0)
[2017-01-31] MEDS ORDERED: METOPROLOL SUCC 25MG EXT REL TAB PO SCH (09:00)
[2017-01-31] MEDS: VANCOMYCIN INJ 1,000 MG in SODIUM CHLORIDE 0.9% 250ML 250 ML IV SCH (10:07)
--- NOTE | 2017-01-31 11:29 | Pharmacy Progress Note ---
Pharmacy Antibiotic Prog Note Date of Service Jan 31, 2017. Subjective The patient is currently receiving vancomycin 1 gm iv q 12 hrs The patient is currently on day # 3 of IV therapy (of current admission) Objective Height (Feet): 6 Height (Inches): 0.00 Weight (Kilograms): 73.800 Levels: Item Value Date Time Vancomycin Level Trough 20.9 mcg/ml 01/31/17 0819 Lab Results (24hrs): Test 01/30/17 20:12 01/31/17 06:18 01/31/17 08:19 Bedside Glucose 248 mg/dl (70-99) 113 mg/dl (70-99) Prothrombin Time 24.4 SECONDS (9.0-12.0) Prothromb Time International Ratio 2.2 (0.9-1.1) Vancomycin Level Trough 20.9 mcg/ml (SEE COMMENT) Assessment & Plan Patient receiving vancomycin therapy x 6 weeks for MRSA bacteremia with unclear infection source. Per previous notes, stop date for abx 03-02-17. Vancomycin: * Trough level this am was therapeutic at ~20 mcg/ml (goal 15-20 mcg/ml for bacteremia) * Will continue with current regimen for now, dosing therapeutic in past (01/26) * Unsure if Scr trending up, no Scr ordered for today * Will consider repeating trough in next 2-3 days if Scr trending up and will adjust dose as needed Pharmacy will continue to follow and will adjust dose/frequency as necessary. Thank you
[2017-01-31 11:31] VITALS: BP 99/59
[2017-01-31 11:51] VITALS: BP 127/77; PULSE 93; TEMP 36.6; O2SAT 95
--- NOTE | 2017-01-31 13:41 | Progress Note ---
Medicine Progress Note Date & Time of Visit: Jan 31, 2017 at 13:31. Subjective Pt was seen and examined Lying in bed with no distress Pt said that he feels fine He said that his strength is back Denies any chest pain, palpitation, dizziness and SOB Objective Last 8 Hrs Date Time Temp Pulse Resp B/P (MAP) Pulse Ox O2 Delivery O2 Flow Rate FiO2 01/31/17 12:00 Room Air 01/31/17 11:51 36.6 93 18 127/77 (94) 95 Room Air 01/31/17 08:12 36.6 92 18 111/70 (84) 95 Room Air 01/31/17 08:00 Room Air Physical Exam: General- No acute distress Head- atraumatic Eyes- PERRL, EOMI ENT- oropharynx clear Neck- supple, no JVD Lungs- clear to auscultation Heart- irregular rhythm Abdomen- normal bowel sounds, soft, nontender Extremities- no pretibial edema, no calf tenderness Neuro- alert, oriented x 3; PERRL, EOMI; no facial palsy, no motor and sensory deficits Skin- warm & dry Laboratory Results: Last 24 Hours Test 01/30/17 16:29 01/30/17 20:12 01/31/17 06:18 01/31/17 08:19 Bedside Glucose 263 mg/dl 248 mg/dl 113 mg/dl Prothrombin Time 24.4 SECONDS Prothromb Time International Ratio 2.2 Vancomycin Level Trough 20.9 mcg/ml Assessment & Plan Syncopal episode Etiology unknown Possible due to orthostatic/vasovagal Episode last seconds to minutes No focal neuro deficit Carotid u/s showed no evidence of hemodynamically significant carotid stenosis. Will do PT Check ortho BP Will monitor blood pressure BP was low in the last admission while on lisinopril or diltiazem Clinically stable Chronic Afib Rate controlled Reviewed tele monitor showed HR increased in the 140's and lasted for about 1 hr HR currently in the 90's Nurse said that HR increases in the 130 with activity Will consider to a low dose of metoprolol, will watch BP Continue with Coumadin 4 mg daily, INR 2.2 today Continue amiodarone 200 mg daily Stating on a low dose of metoprolol 12.5 mg, tolerated well Consider to titrate metoprolol if HR stays elevate (monitor BP) Monitor INR Last ECHO on 01/21/17 * The left ventricle is normal in size. * There is mild concentric left ventricular hypertrophy. * The left ventricular wall motion is normal. * Ejection Fraction = 60-65%. 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 * The mitral valve anatomy is normal. * There is no vegetation seen on the mitral valve. * The tricuspid valve anatomy is normal. * There is no tricuspid valve vegetation. * There is no vegetation on the pulmonic valve. * Mild atherosclerotic plaque(s) in the descending aorta. * The interatrial septum is intact with no evidence for an atrial septal defect. Diabetes Mellitus Hypoglycemia episode Recent Hba1c 8.7 on 01/16 Low glucose this morning 69 On Victoza, glipizide and Lantus that have been on hold Continue monitor BS On sliding scale Will discontinue glipizide on discharge to avoid hypoglycemic episode BP was in the 113 this morning Did not required any additional insulin coverage this morning Continue monitor Blood Sugar Has a follow up with PCP Dr. Pérez tomorrow MRSA bacteriemia and suspected pneumonia During hospitalization at [facility] between 01/16/17 to : Patient was on Ceftaroline IV as inpatient and then subsequently discharged on 01/26/17 to complete Vancomycin 1000 mg IV q 12 hrs for outpatient therapy to complete 6 weeks for MRSA bacteremia with unclear nidus of infection vancomycin trough 16.9 (01/30) Continue Vancomycin 1 gram IV q12 hours, new Vancomycin trough level ordered for 01/31/17 CXR on admission showed developing subtle interstitial opacities within left midlung zone. 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 During hospitalization at [facility] on last admission, rituximab held due to MRSA bacteremia and Continue on prednisone. Reviewed outpatient med rec showed Atovaquone, unclear why pt was starting on it , will continue to hold it for now DVT ppx: on Coumadin INR therapeutic CODE STATUS Full Code Disposition Continue monitor in telemetry Internal Medicine follow-up with Dr. Pérez on 02/01/17 [facility] follow-up with Dr. Flowers in [place]. IVC filter to be removed by [facility] Current Inpatient Medications: Current Inpatient Medications Medications (Trade) Dose Ordered Sig/Lg Route Start Time Stop Time Status Last Admin Dose Admin Warfarin Sodium (Coumadin Tab) 4 mg DAILY@1600 PO 01/30/17 16:00 03/01/17 15:59 01/30/17 17:01 4 MG Amiodarone HCl (Cordarone Tab) 200 mg DAILY PO 01/30/17 09:00 03/01/17 08:59 01/31/17 07:58 200 MG Cholecalciferol (Vitamin D Tab) 2,000 inter.unit DAILY PO 01/30/17 09:00 03/01/17 08:59 01/31/17 07:58 2,000 INTER.UNIT Ferrous Sulfate (Feosol Tab) 325 mg BID PO 01/29/17 21:00 02/28/17 20:59 01/31/17 07:58 325 MG Gemfibrozil (Lopid Tab) 600 mg BID PO 01/29/17 21:00 02/28/17 20:59 01/31/17 07:58 600 MG Pantoprazole Sodium (Protonix Tab) 40 mg BID PO 01/29/17 21:00 02/28/17 20:59 01/31/17 08:50 40 MG Prednisone (PredniSONE TAB) 10 mg DAILY PO 01/30/17 09:00 03/01/17 08:59 01/31/17 07:58 10 MG Glucose (Glucose 40% Gel) 15-30 GRAMS 15 GRAMS... UD PRN PO 01/29/17 20:15 02/28/17 20:14 Glucose (Glucose Chew Tab) 4-8 Tablets 4 Tabl... UD PRN PO 01/29/17 20:15 02/28/17 20:14 Dextrose (Dextrose 50% 50ML Syringe) 25-50ML OF 50% DW IV FOR... UD PRN IV 01/29/17 20:15 02/28/17 20:14 Glucagon (Glucagon Inj) 1 mg UD PRN SQ 01/29/17 20:15 02/28/17 20:14 Insulin Aspart (novoLOG ASPART) SLIDING SCALE If C... ACHS SC 01/29/17 21:00 02/28/17 20:59 01/30/17 20:59 3 UNITS Fish Oil ([place]-3 (Purified Fish Oil) Cap) 1 gm TID PO 01/29/17 21:00 02/28/17 20:59 01/31/17 07:58 1 GM Vancomycin HCl (Consult) 1 ea UD PRN N/A 01/29/17 23:15 02/28/17 23:14 Heparin Sodium (Porcine) (Heparin 10 Unit/ ml 5 ml Flush) 5 ml PRN PRN FLUSH 01/30/17 00:30 03/01/17 00:29 Vancomycin HCl 1000 mg/Sodium Chloride 270 ml @ 125 mls/hr Q12H IV 01/30/17 09:00 03/01/17 08:59 01/31/17 10:07 125 MLS/HR Metoprolol Succinate (Toprol Xl Tab) 12.5 mg QAM PO 01/31/17 09:00 03/02/17 08:59 01/31/17 08:50 12.5 MG Insulin Glargine (Lantus Solostar Pen) 8 units HS SC 01/30/17 21:00 03/01/17 20:59 01/30/17 20:59 8 UNITS
[2017-01-31] MEDS ORDERED: TPRSR25 PO ×2 (13:49→14:25)
--- NOTE | 2017-01-31 13:51 | Discharge Instructions ---
Discharge Instructions Date of Service Jan 31, 2017. Admission Reason for Admission: Atrial Fibrillation,Diabetes,Mrsa Discharge Discharge Diagnosis / Problem: Syncope, Afib, Hypoglycemia, Diabetes Discharge Goals Goal(s): Decrease discomfort, Improve function, Improve disease control Activity Recommendations Activity Limitations: resume your previous activity (as tolerated) . Instructions / Follow-Up Instructions / Follow-Up INTERNAL MEDICINE 02/01/2017 11:20 AM Terry Pérez, RHEUMATOLOGY 02/04/2017 11:40 AM Duane Figueroa MD VASCULAR SURGERY 02/08/2017 7:30 AM Vascular Lab, [facility] Dr. Chaudhary RADIOLOGY [facility] Dr. Shine placed the vena cava filter. Her office will contact you about removing filter. Please call Radiology Dept if you don't hear from them in 1 week. Phone #: [phone] Continue monitor Blood sugar Discontinue glipizide Hold Victoza for now, resume when your Dr. Pérez instructs you to resume it. Continue Vancomycin 1000 mg IV every 12 hours PICC line should be removed after last dose of vancomycin. [place] will continue to monitor and adjust your warfarin. Continue monitor blood pressure fall precaution Current Hospital Diet Patient's current hospital diet: Diabetes Type 2 Diet Discharge Diet Recommended Diet: Diabetes Type 2 Diet Pending Studies Studies pending at discharge: no Laboratory Results Hemoglobin A1c Test 01/16/17 17:25 Range/Units Estimated Average Glucose 203 mg/dl Hemoglobin A1c 8.7 H 4.5-5.6 % Medical Emergencies . Who to Call and When: Medical Emergencies: If at any time you feel your situation is an emergency, please call 911 immediately. . Non-Emergent Contact Non-Emergency issues call your: Primary Care Provider Call Non-Emergent contact if: you have a fever, temperature is above 100.5, you have any medication questions . . "Provider Documentation" section prepared by Tanika Benitez. . VTE Core Measure Inpt VTE Proph given/why not?: Warfarin (Coumadin)
--- NOTE | 2017-01-31 13:55 | Discharge Summary ---
Discharge Summary Date of Service Jan 31, 2017. Discharge Summary Admission Date: Jan 29, 2017 at 19:45 Discharge Disposition: Home Principal Diagnosis: Syncope Secondary Diagnoses/Problems: AFIB Hypoglycemia Diabetes MRSA bacteriemia and suspected pneumonia History of Granulomatosis with polyangiitis (Johan granulomatosis) Hx PE Procedures: ULTRASOUND OF THE CAROTID ARTERIES CLINICAL HISTORY: syncope COMPARISON STUDY: None. TECHNIQUE: Real-time, grayscale, and color Doppler sonography of the carotid arteries was performed. Imaging reviewed in the transverse and longitudinal planes. NASCET criteria was utilized for stenosis calcification. FINDINGS: There is mild to moderate echogenic atherosclerotic plaque present . The peak systolic velocity within the right internal carotid artery is 70 cm/sec. The systolic velocity ratio of right internal to common carotid artery is 0.9. The peak systolic velocity within the left internal carotid artery is 95 cm/sec. The systolic velocity ratio left internal to common carotid artery is 1.1. Antegrade flow is seen in the vertebral arteries. The external carotid arteries are patent. IMPRESSION: No evidence of hemodynamically significant carotid stenosis. Electronically signed by: Jose Cruz Torrez M.D. 01/29/2017 10:01 PM Dictated Date/Time: 01/29/2017 9:59 PM Medication Reconciliation New Medications: Metoprolol Succinate (Metoprolol Succinate ER) 25 Mg Tabcr 12.5 MG PO QAM for 30 Days Continued Medications: Amiodarone Hcl (Cordarone) 200 Mg Tab 200 MG PO DAILY, TAB Atovaquone (Mepron) 750 Mg/5 Ml Susp 750 MG PO DAILY Cholecalciferol (Vitamin D3) 1,000 Unit Tab 2 TAB PO DAILY Ferrous Sulfate (Ferrous Sulfate) 325 Mg Tab 1 TAB PO BID Fish Oil ([place]-3) 1 Ea Cap 1 CAP PO TID, CAP Gemfibrozil (Lopid) 600 Mg Tab 600 MG PO BID, TAB Insulin Glargine (Lantus) 100 Unit/Ml Inj 10 UNITS SC QPM, VIAL Liraglutide (Victoza) 18 Mg/3 Ml Inj 0.3 ML SC DAILY Pantoprazole (Protonix) 40 Mg Tab 40 MG PO BID, TAB Prednisone Tab (Prednisone) 10 Mg Tab 0 PO UD, TAB Current dose is 15 mg daily. Decrease dose to 10 mg daily according to instructions from Dr. Davis. Vancomycin Hcl In Dextrose (Vancomycin Hcl In Dextros) 1 Inj Inj 1000 MG IV Q12 Dosing to be adjusted as necessary per [facility]. Vanco trough recommended 01/28, then as indicated. Stop date 03/02/2017. PICC should be removed after last dose. Warfarin Sodium (Warfarin Sodium) 4 Mg Tab 4 MG PO DAILY 4 mg daily, then as directed by [facility]. 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 During hospitalization at [facility] on last admission, rituximab held due to MRSA bacteremia and continued on prednisone. # 2 history of IVC filter because of pulmonary embolism developed around when patient admitted to [facility] in [place] with IVC filter Violetta retrievable MR Conditional device placed on 09/29/[address] Shine, and possible suspicion that the IVC filter could have been infected in light of recurrent MRSA bacteremia During hospitalization at [facility] between 01/16/17 to : Patient was on Ceftaroline IV as inpatient and then subsequently discharged on 01/26/17 to complete Vancomycin 1000 mg IV q 12 hrs for outpatient therapy with anticipated course of therapy of 6 weeks for MRSA bacteremia with unclear nidus of infection. As per discharge summary: TTE nondiagnostic; SACHA did not show any evidence of valvular vegetation, IVC filter suspected as a nidus of infection with plans for IVC filter to be removed after discharge at [facility]. Patient also on Coumadin 4 mg daily for history of pulmonary embolism and known to have chronic atrial fibrillation on amiodarone 200 mg daily. Discharge summary also listed continuing Atovaquone as outpatient discharge medication but in review of the chart it is unclear what role continuing this medication has in MRSA bacteremia and Granulomatosis with polyangiitis Lisinopril and Diltiazem for history of hypertension was discontinued on last hospital admission due to low blood pressure History of Diabetes on Insulin with discharge summary also recommendation continuing as Lantus 10 units qhs, Liraglutide (Victoza) 18 Mg/3 Ml Inj 0.3 ML SC daily, Glipizide 20 mg BID HISTORY OF PRESENT ILLNESS CC: SYNCOPE Patient presents to ER on 01/29/17 after multiple syncopal episodes as per patient's family at the bedside lasting for minutes and first happened when patient was in standing position. Patient was caught from falling down from striking the ground quickly but patient had to be on his knees due to these episodes. Patient and family denies loss of conscious. Patient denies shortness of breath or chest pain or abdominal pain. Patient reports 1 episode of small amount diarrhea but otherwise no other problems with bowel movements or urination. Physical Exam (per Admitting): General Appearance: WD/WN, no apparent distress, + pertinent finding (frail appearing) Head: atraumatic Eyes: normal inspection, PERRL, EOMI, sclerae normal ENT: normal ENT inspection, hearing grossly normal, pharynx normal Neck: supple, thyroid normal, no JVD, trachea midline Respiratory/Chest: chest non-tender, normal breath sounds, no respiratory distress, no accessory muscle use, + crackles (bibasilar crackles) Cardiovascular: no edema, no JVD, normal peripheral pulses, + irregularly irregular Abdomen/GI: normal bowel sounds, non tender, soft Back: normal inspection, no CVA tenderness, no muscle spasm Extremities/Musculoskelatal: normal inspection, no calf tenderness, normal capillary refill, no pedal edema, + pertinent finding (has difficulty raising up from bed to upright position) Neurologic/Psych: no motor/sensory deficits, alert, oriented x 3 Skin: normal color, warm/dry, no rash Hospital Course Syncopal episode Etiology unknown Possible due to orthostatic/vasovagal Episode last seconds to minutes No focal neuro deficit Carotid u/s showed no evidence of hemodynamically significant carotid stenosis. Will do PT Check ortho BP Will monitor blood pressure BP was low in the last admission while on lisinopril or diltiazem Clinically stable Chronic Afib Rate controlled Reviewed tele monitor showed HR increased in the 140's and lasted for about 1 hr HR currently in the 90's Nurse said that HR increases in the 130 with activity Will consider to a low dose of metoprolol, will watch BP Continue with Coumadin 4 mg daily, INR 2.2 today Continue amiodarone 200 mg daily Stating on a low dose of metoprolol 12.5 mg, tolerated well Consider to titrate metoprolol if HR stays elevate (monitor BP) Monitor INR Last ECHO on 01/21/17 * The left ventricle is normal in size. * There is mild concentric left ventricular hypertrophy. * The left ventricular wall motion is normal. * Ejection Fraction = 60-65%. 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 * The mitral valve anatomy is normal. * There is no vegetation seen on the mitral valve. * The tricuspid valve anatomy is normal. * There is no tricuspid valve vegetation. * There is no vegetation on the pulmonic valve. * Mild atherosclerotic plaque(s) in the descending aorta. * The interatrial septum is intact with no evidence for an atrial septal defect. Diabetes Mellitus Recent Hba1c 8.7 on 01/16 Low glucose this morning 69 On Victoza, glipizide and Lantus that have been on hold Continue monitor BS On sliding scale Will discontinue glipizide on discharge to avoid hypoglycemic episode BP was in the 113 this morning Hold victoza for now Did not required any additional insulin coverage this morning Continue monitor Blood Sugar Has a follow up with PCP Dr. Pérez tomorrow MRSA bacteriemia and suspected pneumonia During hospitalization at [facility] between 01/16/17 to : Patient was on Ceftaroline IV as inpatient and then subsequently discharged on 01/26/17 to complete Vancomycin 1000 mg IV q 12 hrs for outpatient therapy to complete 6 weeks for MRSA bacteremia with unclear nidus of infection vancomycin trough 16.9 (01/30) Continue Vancomycin 1 gram IV q12 hours, new Vancomycin trough level ordered for 01/31/17 CXR on admission showed developing subtle interstitial opacities within left midlung zone. 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 During hospitalization at [facility] on last admission, rituximab held due to MRSA bacteremia and Continue on prednisone. Reviewed outpatient med rec showed Atovaquone, unclear why pt was starting on it , will continue to hold it for now DVT ppx: on Coumadin INR therapeutic CODE STATUS Full Code Disposition Continue monitor in telemetry Internal Medicine follow-up with Dr. Pérez on 02/01/17 [facility] follow-up with Dr. Flowers in [place]. IVC filter to be removed by [facility] Total time spent on discharge = 35 minutes This includes examination of the patient, discharge planning, medication reconciliation, and communication with other providers. Discharge Instructions INTERNAL MEDICINE 02/01/2017 11:20 AM Terry Pérez, DO RHEUMATOLOGY 02/04/2017 11:40 AM Duane Figueroa MD VASCULAR SURGERY 02/08/2017 7:30 AM Vascular Lab, [facility] Dr. Chaudhary RADIOLOGY [facility] Dr. Shine placed the vena cava filter. Her office will contact you about removing filter. Please call Radiology Dept if you don't hear from them in 1 week. Phone #: [phone] Continue monitor Blood sugar Discontinue glipizide Hold Victoza for now, resume when your Dr. Pérez instructs you to resume it. Continue Vancomycin 1000 mg IV every 12 hours PICC line should be removed after last dose of vancomycin. [facility] will continue to monitor and adjust your warfarin. Continue monitor blood pressure Additional Copies To Terry Pérez D.O.
[2017-01-31 13:56] VITALS: BP 127/77; PULSE 93; TEMP 36.6; O2SAT 95
== END 2017-01-31 14:21 | disposition home health service (06) | DRG 314 ==
LOC: EDBD 18:01 → C.EDC 18:02 → C.2T 19:45 → ENRESERV 20:11
PROVIDERS: ADMIT Hospitalist; ATTEND Internal Medicine
DX: T82.7XXA Infection and inflammatory reaction due to other cardiac and vascular devices, implants and grafts, initial encounter (principal); J18.9 Pneumonia, unspecified organism; M31.30 Wegener's granulomatosis without renal involvement; R78.81 Bacteremia; A49.02 Methicillin resistant Staphylococcus aureus infection, unspecified site; R55 Syncope and collapse; E11.649 Type 2 diabetes mellitus with hypoglycemia without coma; I48.2 Chronic atrial fibrillation; Z79.01 Long term (current) use of anticoagulants; Z79.4 Long term (current) use of insulin; Z79.52 Long term (current) use of systemic steroids; Z79.84 Long term (current) use of oral hypoglycemic drugs; Z79.899 Other long term (current) drug therapy; Z86.711 Personal history of pulmonary embolism; Z87.891 Personal history of nicotine dependence; Z79.2 Long term (current) use of antibiotics; Y83.1 Surgical operation with implant of artificial internal device as the cause of abnormal reaction of the patient, or of later complication, without mention of misadventure at the time of the procedure; Y71.2 Prosthetic and other implants, materials and accessory cardiovascular devices associated with adverse incidents

== ENCOUNTER → 2017-10-20 | Day surgery (SDC) | payer OTHER, MEDICARE ==
[2017-09-20 11:10] VITALS: Ht 182.9 cm; Wt 81.8 kg
[~2017-10-20] VITALS: Ht 182.9 cm; Wt 81.8 kg
[~2017-10-20] MED LIST changes: +500ML BSS 0.3ML EPI 1:1000PF IRRIG ONE; +ACETAMINOPHEN 325 MG TAB PO PRN; -AMIO200T4 PO; +AMVISC PLUS 0.8ML SYRINGE INT OCU ONE; +APIX1TAB3 PO; +ATOR-24 PO; +ATROPINE SULFATE 0.1 MG/ML 5ML SYR IV PRN; +BSS FLUSH ONE; +DOXY100C76 PO; +EpINEphrine INJ 1MG/ML AMP 1 MG/ML AMP ONE; +FENO145T26 PO; -GEMF600T3 PO; -GLIP10TA9 PO; +LACTATED RINGER'S 1000ML 500 ML IV SCH; +LIDOCAINE 3.5% OPH GEL PER APPLICATION CHARGE ONE; +LIDOCAINE HCL 1% MPF 2 ML VIAL ONE; +METO25TA3 PO; +MIDAZOLAM HCL 1 MG/ML 2ML VIAL ONE; +NVLG SQ; +PHENYLEPHRINE HCL 10% OP SOLN PER DROP CHARGE OPR SCH; +POVIDONE-IODINE OP SOLN 30 ML BTL ONE; +PRED-301 PO; -PRED10TA PO; +PROPARACAINE 0.5% OP SOLN PER DROP CHARGE OPR SCH; +PSYL48.59 PO; +TOBRAMYCIN/DEXAMETHASONE OPH OINT PER APPLN CHARGE ONE; -VANC500I IV; -WARF-283 PO; -[UNRECOGNIZED DRUG - CODE] PO
[2017-10-20] MEDS: PHENYLEPHRINE HCL 2.5% OP SOLN PER DROP CHARGE OPR SCH ×2 (07:56→08:01)
[2017-10-20] MEDS: TROPICAMIDE 1% OP SOLN PER DROP CHARGE OPR SCH ×2 (07:57→08:02)
[2017-10-20] MEDS: CYCLOPENTOLATE HCL 1% OP SOLN PER DROP CHARGE OPR SCH ×2 (07:58→08:03)
[2017-10-20] MEDS: KETOROLAC 0.5% OP SOLN PER DROP CHARGE OPR SCH ×2 (07:59→08:04)
[2017-10-20] MEDS: GATIFLOXACIN OP SOLN PER DROP CHARGE OPR SCH ×2 (08:00→08:10)
--- NOTE | 2017-10-20 08:24 | History & Physical Bridge - SC ---
H&P Re-Evaluation Bridge Note: I have examined the patient, reviewed the History & Physical and in the interval since the performance of the History & Physical I have noted the following changes of clinical significance: No changes noted
--- NOTE | 2017-10-20 09:11 | [facility] Operative Report ---
Operative Report Date of Service Oct 20, 2017. Operative Report 1. PREOPERATIVE DIAGNOSIS: Cataract of the right eye. 2. POSTOPERATIVE DIAGNOSIS: Same. 3. PROCEDURE: Phacoemulsification with intraocular lens implantation of the right eye. SURGEON: Dr. Dakota Scott. ANESTHESIA: Topical Lidocaine gel, 1% Non- Preserved intracameral Lidocaine, and monitored intravenous sedation. INDICATIONS FOR THE PROCEDURE: The patient is a 71 - year-old male with a history of cataract of the right eye causing significant visual impairment. The details of the proposed procedure were explained to the patient who asked appropriate questions and following discussion of all risks, benefits and alternatives agreed to have the procedure done. 4. OPERATION AND FINDINGS: DESCRIPTION OF PROCEDURE: After informed consent was obtained, the patient was brought to the Operating Room at the [facility]. The patient was placed in a supine position and then the right eye was prepped and draped in the usual sterile fashion for intraocular surgery. A drop of topical Lidocaine gel was placed in the operative eye. A wire lid speculum was then placed in the fornices. A corneal paracentesis was then created temporally. The Non-Preserved Lidocaine was then instilled into the anterior chamber. The anterior chamber was then pressurized with viscoelastic. A 2.0 mm clear corneal incision was then created temporally. A cystotome was inserted into the anterior chamber and used to create a tear in the anterior lens capsule. This capsular tear was then used to create a small flap and the flap was dragged in a counterclockwise direction in order to create a continuous curvilinear capsulorrhexis. Hydrodissection was accomplished with balanced salt solution. Phacoemulsification of the lens nucleus was then performed in a standard [id number] technique. The phaco time was 22 seconds with an average power of 14 %. The remaining cortical material was removed using irrigation aspiration. The capsular bag was then filled with viscoelastic. A [employer] Lomb MI60L +22.5 diopters lens was then loaded into the injector and injected into the capsular bag. The remaining viscoelastic was removed with the irrigation aspiration handpiece. The wound was hydrated and then checked and found to be watertight. The intraocular pressure was checked and found to be adequate. The wire lid speculum was removed and the patient's face was cleaned and dried. TobraDex ointment was placed in the inferior fornix. The patient was discharged to the Recovery Room having tolerated the procedure well. There were no complications. The patient will be seen tomorrow in the office for follow-up. I attest to the content of the Intraoperative Record and any orders documented therein. Any exceptions are noted below.
--- NOTE | 2017-10-20 09:12 | Discharge Instructions-SurgCtr ---
Discharge Instructions Date of Service Oct 20, 2017. Visit Reason for Visit: Cataract Right Eye Discharge Discharge Diagnosis / Problem: cataract Discharge Goals Goal(s): Improve function Activity Recommendations Activity Limitations: per Instructions/Follow-up section Anesthesia . Post Anesthesia Instructions: If you have had General Anesthesia or IV Sedation: * Do not drive today. * Resume driving when surgeon permits. * Do not make important decisions or sign legal documents today. * Call surgeon for: 1. Temperature elevations greater than 101 degrees F. 2. Uncontrollable pain. 3. Excessive bleeding. 4. Persistent nausea and vomiting. 5. Medication intolerance (nausea, vomiting or rash). * For nausea and vomiting use only clear liquids such as: tea, soda, bouillon until nausea subsides, then gradually increase diet as tolerated. * If you have any concerns or questions, call your surgeon's office. If physician is unavailable and it is an emergency, call 911 or go to the nearest emergency room. . Diet Recommendations Home Diet: resume previous diet Procedures Procedures Performed: Right Cataract Phacoemulsification With Intraocular Lens Implant Pending Studies Studies pending at discharge: no Medical Emergencies . Who to Call and When: Medical Emergencies: If at any time you feel your situation is an emergency, please call 911 immediately. . Non-Emergent Contact Non-Emergency issues call your: [employer] . . "Provider Documentation" section prepared by Dakota Scott. .
[2017-10-20 09:14] VITALS: TEMP 36.3
[2017-10-20 09:34] VITALS: BP 128/85; PULSE 84; O2SAT 97
--- NOTE | 2017-10-20 09:41 | Anesthesia Progress Nt - [facility] ---
Anesthesia Post Op Note Date & Time Oct 20, 2017 at 09:41 Vital Signs Pain Intensity: 0 Vital Signs Past 12 Hours Date Time Temp Pulse Resp B/P (MAP) Pulse Ox O2 Delivery O2 Flow Rate FiO2 10/20/17 09:34 84 20 128/85 (99) 97 Room Air 10/20/17 09:14 36.3 82 16 127/80 (96) 98 Room Air 10/20/17 07:41 36.7 88 16 115/73 (87) 98 Room Air Notes Mental Status: alert / awake / arousable, participated in evaluation Pt Amnestic to Procedure: Yes Nausea / Vomiting: adequately controlled Pain: adequately controlled Airway Patency, RR, SpO2: stable & adequate BP & HR: stable & adequate Hydration State: stable & adequate Anesthetic Complications: no major complications apparent
== END | disposition home or self-care (01) ==
LOC: X.SURG 07:19
PROVIDERS: ATTEND Ophthalmology
DX: H26.9 Unspecified cataract (principal); I48.91 Unspecified atrial fibrillation; Z98.42 Cataract extraction status, left eye; N18.3 Chronic kidney disease, stage 3 (moderate); Z79.4 Long term (current) use of insulin; Z87.891 Personal history of nicotine dependence; Z79.899 Other long term (current) drug therapy